=== PATIENT | female | born 1990 | race Caucasian/White ===

== ENCOUNTER 2021-08-06 11:30 | Outpatient (REF) | payer MEDICAID, SELFPAY ==
--- NOTE | 2021-08-06 10:30 | PAPFT_PTH ---
PATIENT: Bettina Ledesma LOC: [facility]#:[id number] AGE/SX: 30/F ROOM: RE08/06/[address]: Shelby Li : 1990 BED: DIS: 08/06/2021 SPEC #: [id number] RECD: 08/06/21 15:13 STATUS: AMINAH REQ #: [id number] JOHN: 08/06/21 10:[address]: Shelby Li DEPT: [facility] Cytology RECD BY: Melanie William ENTERED: 08/06/21 15:15 SP TYPE: PAPFT OTHR DR: Thea Marquez Tissues: 1 - CX/ENDOCX FOR PAP SMEARS Procedures: PAP THIN PREP/UVM Screening Comments: [id number]
== END 2021-08-06 11:31 | disposition home or self-care (01) ==
LOC: NCHCN 11:30
PROVIDERS: PCP Nurse Practitioner Family; Visit Provider Registered Nurse
DX: Z12.4 Encounter for screening for malignant neoplasm of cervix (principal)
CPT/HCPCS: 88142

== ENCOUNTER 2022-02-23 14:54 | Outpatient (REF) | payer MEDICAID, SELFPAY | END 2022-02-23 14:55 | disposition home or self-care (01) | LOC: NCHCN 14:54 | PROVIDERS: PCP Nurse Practitioner Family; Visit Provider Family Medicine | DX: N39.8 Other specified disorders of urinary system (principal) | CPT/HCPCS: 87086 ==

== ENCOUNTER 2023-10-25 10:43 | Outpatient (REF) | payer BC, SELFPAY ==
--- OUTSIDE RECORDS SUMMARY | 2023-10-25 10:45 | XMS_ITS | Encounter Summary ---
Author Organization [facility] Address [address] [place] [address] Care Team Providers Care Patrol Police Sergeant Name Role Phone Shelby Li APPLICATION SECURITY ARCHITECT Primary Care Provider + Encounter Details Date Type Department Care Team (Late st Contact Info) Description 08/09/2021 Lab Requisition [facility] Pathology & Laboratory Medicine - [facility] [address] [place] [address] Shelby Li, APPLICATION SECURITY ARCHITECT [address] [place] [address] Encounter for general adult medical examination without abnormal findings; Encounter for screening for malignant neoplasm of cervix Social History Tobacco Use Types Packs/Day Years Used Date Smoking Tobacco: Never Smokeless Tobacco: Never Alcohol Use Standard Drinks/Week Comments No 0 (1 standard drink = 0.6 oz pur e alcohol) Interpersonal Safety Answer Date Record ed Physically Hurt Never 11/03/2019 Verbally Threaten Not on file 11/03/2019 Sex and Gender Information Value Date Recorded Sex Assigned at Not on file Gender Identity Female 02/16/2021 11:19 EST Sexual Orientation Not on file documented as of this encounter Functional Status Functional Status Response Date of Assess ment Are you deaf or do you have serious difficulty h earing? No 02/04/2018 Are you blind or do you have serious difficulty seeing, even when wearing glasses? No 02/04/2018 Do you have serious difficul ty walking or climbing stairs? (5 years old or older) No 02/04/2018 Do you have difficulty dress ing or bathing? (5 years old or older) No 02/04/2018 Because of a physical, menta l, or emotional condition, does this person have difficulty doing errands alone such as visiting a doctor's office or shopping? No 05/21/2018 Cognitive Status Response Date of Assessm ent Because of a physical, menta l, or emotional condition, does this person have serious difficulty concentrating, remembering, or making decisions? No 05/21/2018 documented as of this encounter Plan of Treatment Not on file documented as of this encounter Procedures Procedure Name Priority Date/Time Associated Diagnosis Comments PAP TEST Today 08/06/2021 10:30 EDT Encounter for general adult medical examination without abnormal findings Encounter for screening for malignant neoplasm of cervix documented in this encounter Results * PAP TEST (08/06/2021 10:30 EDT) Specimens A. Cervix and/or Endocervix , ThinPrep Imaging System with Manual Evaluation 08/13/2021 13:33 [facility] Specimen Adequacy Satisfactory for Evaluation - transformation zone component present 08/13/2021 13:33 [facility] General Categorization Negative for intraepithelial lesion or malignancy 08/13/2021 13:33 [facility] Descriptive Diagnosis Reactive cellular changes associated with inflammation present (includes repair). Shift in bess present suggestive of bacterial vaginosis. 08/13/2021 13:33 [facility] Attestation By the signature below, the attending physician certifies that they have personally conducted a gross and/or microscopic examination of the described specimens and rendered or confirmed the above diagnosis. 08/13/2021 13:33 [facility] at 1333 Clinical History See below 08/14/19 13:33 [facility] Performing Lab [facility] 08/13/2021 13:33 [facility] Scanned Images 08/13/2021 13:33 [facility] Papanicolaou smear specimen (specimen) CERVIX UTERI STRUCTURE / Unknown 08/06/2021 10:30 EDT 08/09/2021 11:50 EDT Shelby Li APPLICATION SECURITY ARCHITECT PATHOLOGY [facility] [address] [place] [address] documented in this encounter Visit Diagnoses Diagnosis Encounter for general adult medical examination without abnormal findings Unspecified general medical examination Encounter for screening for malignant neoplasm of cervix Screening for malignant neoplasm of the cervix documented in this encounter Care Teams Patrol Police Sergeant Relationship Specialty Start Date End Date Shelby Li, APPLICATION SECURITY ARCHITECT [address] [place] [id number] PCP - General 02/06/18 documented as of this encounter
--- OUTSIDE RECORDS SUMMARY | 2023-10-25 10:45 | XMS_ITS | Referral Summary ---
Author Organization [facility] Address [address] [place] [address] Care Team Providers Care Exploitation Analyst Name Role Phone Shelby Li SILVIA Primary Care Provider + Allergies No known active allergies Medications Medication Sig Dispensed Refills Start Date End Date Status acetaminophen (TYLENOL ORAL) Take by mouth as needed. Active BIOTIN ORAL Take by mouth daily. Active amLODIPine (NORVASC) 2.5 mg tablet Take 1 tablet by mouth daily. Add one tab every week until taking 10mg (4 tabs). 90 tablet 3 07/04/2018 Active Additional Information Patient not taking.Reported on 09/03/2018 Active Problems Problem Noted Date Diagnosed Date Cerebral venous thrombosis 02/05/2018 Overview: Risk fx: Recent delivery with epidural/blood patch ?? 01/26/2018 - Delivery with epidural; blood patch performed 01/29/2018. ?? 02/03/2018 - P/t [facility] with headache, right jessie-body numbness, expressive language deficits. Initially thought to have SDH, MRI c/w cortical venous thrombosis. Started on hepartin gtt, symptoms resolved. Discharged on LMWH. ?? 02/04/2018 CT angio head/neck - Extra-axial serpiginous hyperdensity in LEFT frontoparietal region with lack of contrast opacification on CTA images represents a thrombosed cortical vein. No ICH or parenchymal edema. ?? 02/04/2018 MR head/MRV - Left cortical vein thrombus. No hemorrhage. Mild diffuse dural thickening and enhancement likely related to low CSF pressure given h/o post-LP headache ?? 02/04/2018 BUE and BLE dopplers - No thrombus. ?? 03/12/2018 THP - continuing LMWH while she is . LMWH level at goal. ?? 05/21/2018 THP (Yessenia) - switching to warfarin. ?? 05/21/2018 Neuro - ordered MRV. ?? 07/04/2018 MRV - Interval decrease of size of known cortical thrombosis without recanalization of cortical vein, no new thrombus identified. ?? 07/23/2018 THP (Yessenia) - completing 6 mo of AC, pending thromophilia panel, f/u in our clinic. ?? 09/03/2018 THP (Yessenia) - off AC, no ASA started. Thrombophilia panel essentially normal. Recommend no further AC or ASA at this point. Avoid estrogen-based OCP and other meds moving forward, agree with mirena IUD. Asked her to follow up with us an MFM if she opts to get again. ?? 08/18/18 Thrombophilia panel [facility] Lab: APCR - 3.2; AT3 - 107%; Cardiolipin IgG - 2.63; IgM - 5.28; Factor 8 - 150; DDimer - <0.19; PTT - 30; LA [place] - DRVVT - 39.4; DVV Mix - 37.9; DVV Control - 35.4; SCT - 38.6; LA Confirm - 28.9; LA Ratio- 1.18; Thrombin Time - 12.2; Protime - 9.8; INR 1.01; Protein C Activity - 117; Protein S Activity - 94 Social History Tobacco Use Types Packs/Day Years [...] 11:19 EST Sexual Orientation Not on file Last Filed Vital Signs Vital Sign Reading Time Taken Comments Blood Pressure 119/66 02/16/2021 1530 EST Pulse 58 02/16/2021 1018 EST Temperature 36.6 ??C (97.9 ??F) 02/16/2021 1018 EST Respiratory Rate 14 02/16/2021 1530 EST Oxygen Saturation 99% 02/16/2021 1018 EST Inhaled Oxygen Concentration - - Weight 75.4 kg (166 lb 3.2 oz) 02/16/[address] Height 160 cm (5' 3) 02/16/2021 1018 EST Body Mass Index 29.44 02/16/2021 1018 EST Functional Status Functional Status Response Date of [...] concentrating, remembering, or making decisions? No 05/21/2018 Plan of Treatment Not on file Medical Devices Implanted Type Area Creel Hand Device Identifier Shelf Expiration Date Model / Serial / Lot Mirena Iud,Mri Safe To 3t. [facility] 07/03/18 Description:Mirena IUD, MRI Safe to 3T. [facility] 07/03/18 Advance Directives For more information, please contact: [phone] * Full Code (Latest Code Status on File) Date Activated Date Inactivated Comments 02/04/2018 4:04 02/06/2018 14:39 Question Answer Comments Reason for decision includes: Full code consistent with overall plan of care Who participated in the discussion? Not Discusse d Care Teams Exploitation Analyst Relationship Specialty Start Date End Date Shelby Li, CONSERVATION SCIENTIST [address] [facility] [place] [address] PCP - General 02/06/18
--- OUTSIDE RECORDS SUMMARY | 2023-10-25 10:45 | XMS_ITS | Clinical Summary ---
Author Organization [facility] Address [address] [place] [address] Care Team Providers Care Assessment Nurse Practitioner Name Role Phone Shelby Li SILVIA Primary [...] patch performed 01/29/2018. ?? 02/03/2018 - P/t [facility] with headache, right jessie-body numbness, expressive language [...] to get again. ?? 08/18/18 Thrombophilia panel [facility] Lab: APCR - 3.2; AT3 - 107%; Cardiolipin IgG - 2.63; IgM - 5.28; Factor 8 - 150; DDimer - <0.19; PTT - 30; LA [place] - DRVVT - 39.4; DVV Mix - 37.9; DVV Control - 35.4; SCT - 38.6; LA Confirm - 28.9; LA Ratio- 1.18; Thrombin Time - 12.2; Protime - 9.8; INR 1.01; Protein C Activity - 117; Protein S Activity - 94 Surgical History Surgery Date Site/Laterality Comments TONSILLECTOMY age 11 Medical History Medical History Date Comments Cerebral venous thrombosis of cortical vein 2017 Family History Medical History Relation Comments No Known Brother No Known Daughter No Known Father Diabetes Maternal Grandfather No Known Maternal Grandmother Crohn's Disease Mother No Known Paternal Grandfather father adop amador, don't know history No Known Paternal Grandmother father adop amador, don't know history No Known Son Relation Status Comments Brother Alive Daughter Alive Father Alive Maternal Grandfather Alive Maternal Grandmother Alive Mother Alive Paternal Grandfather Paternal Grandmother Son Alive Social History Tobacco Use Types Packs/Day Years [...] 11:19 EST Sexual Orientation Not on file Obstetrics History Last Filed Vital Signs Vital Sign Reading [...] Body Mass Index 29.44 02/16/2021 1018 EST Plan of Treatment Health Maintenance Due Date Last Done Comments Hepatitis C Screen 1990 Hepatitis B Vaccine (1 of 3 - 19+ 3-dose series) 10/31 COVID-19 Vaccine ( season) 2022 Medical Devices Implanted Type Area Cut Off Man Device Identifier Shelf Expiration Date Model / Serial / Lot Mirena Iud,Mri Safe To 3t. [facility] 07/03/18 Description:Mirena IUD, MRI Safe to 3T. [facility] 07/03/18 Advance Directives For more information, please contact: [phone] * Full Code (Latest Code Status on File) Date Activated Date Inactivated Comments 02/04/2018 4:04 02/06/2018 14:39 Question Answer Comments Reason for decision includes: Full code consistent with overall plan of care Who participated in the discussion? Not Discusse d Care Teams Assessment Nurse Practitioner Relationship Specialty Start Date End Date Shelby Li APRN [address] [place] [address] PCP - General 02/06/18
--- OUTSIDE RECORDS SUMMARY | 2023-10-25 10:46 | XMS_ITS | Encounter Summary ---
Author Organization [facility] Address [address] [place] [address] Care Team Providers Care Javascript Software Engineer Name Role Phone Shelby Li SILVIA Primary Care Provider + Encounter Details Date Type Department Care Team (Latest Contact Info) Description 06/26/2018 9:20 EDT - 06/26/2018 23:59 EDT Hospital Encounter [address] [address] Unknown, Provider, Discharge Disposition: Home or Self Care Social History Tobacco Use Types Packs/Day Years Used Date Smoking Tobacco: Never Smokeless Tobacco: Never Alcohol Use Standard Drinks/Week Comments No 0 (1 standard drink = 0.6 oz pur e alcohol) Sex and Gender Information Value Date Recorded [...] No 05/21/2018 documented as of this encounter Medications at Time of Discharge Medication Sig Dispensed Refills Start Date End Date acetaminophen (TYLENOL ORAL) Take by mouth as needed. enoxaparin (LOVENOX) 80 mg/0.8 mL injection Inject 80 mg into the skin every 12 hours. 20 Syringe 05/21/2018 07/23/2018 warfarin (COUMADIN) 5 mg tablet Take 1 Tab by mouth daily. 30 Tab 3 05/24/2018 09/03/2018 documented as of this encounter Discharge Disposition Disposition Code Departure Means Destination Home or Self [place] documented in this encounter Plan of Treatment Not on file documented as of this encounter Visit Diagnoses Not on filedocumented in this encounter Care Teams Javascript Software Engineer Relationship Specialty Start Date End Date Shelby Li APRN [address] [place] [phone] PCP - General 02/06/18 documented as of this encounter
--- OUTSIDE RECORDS SUMMARY | 2023-10-25 10:46 | XMS_ITS | Encounter Summary ---
Author Organization [facility] Address [address] [place] [address] Care Team Providers Care Pipe Installer Name Role Phone Shelby Li SILVIA Primary Care Provider + Reason for Visit * Reason Onset Date Comments Appointment Related 03/09/2018 Encounter Details Date Type Department Care Team (Late st Contact Info) Description 03/09/2018 Telephone [facility] Hematology & Oncology - [address] [address] Theodore Casas MD [address] [place] [address] [address] [place] [address] Appointment Related Social History Tobacco Use Types Packs/Day Years [...] a physical, menta l, or emotional condition, do you have difficulty doing errands alone such as visiting a doctor's office or shopping? (15 years old or older) No 02/04/2018 Cognitive Status Response Date of Assessm ent Because of a physical, menta l, or emotional condition, do you have serious difficulty concentrating, remembering, or making decisions? (5 years old or older) No 02/04/2018 documented as of this encounter Miscellaneous Notes * Telephone Encounter - Erica Gayle - 03/09/2018 1616 EST 03/09 @ 4:16 called pt to remind her of appt with TP on 03/12 @ 11:00 She said she would be here. documented in this encounter Plan of Treatment Not on file documented as of this encounter Visit Diagnoses Not on filedocumented in this encounter Care Teams Pipe Installer Relationship Specialty Start Date End Date Shelby Li APRN [address] [place] [address] PCP - General 02/06/18 documented as of this encounter
--- OUTSIDE RECORDS SUMMARY | 2023-10-25 10:46 | XMS_ITS | Encounter Summary ---
Author Organization [facility] Address [address] [place] [address] Care Team Providers Care Feed Mill Operator Name Role Phone Shelby Li SILVIA Primary Care Provider + Reason for Visit * Reason Comments Follow-up Encounter Details Date Type Department Care Team (Late st Contact Info) Description 09/03/2018 16:00 EDT Office Visit [facility] Hematology & Oncology - [address] [address] Theodore Casas MD [address] [place] [address], [facility] [address] [place] [address] Cerebral venous thrombosis (Primary Dx) Social History Tobacco Use Types Packs/Day Years Used Date Smoking Tobacco: Never Smokeless Tobacco: Never Alcohol Use Standard Drinks/Week Comments No 0 (1 standard drink = 0.6 oz pur e alcohol) Sex and Gender Information Value Date Recorded Sex Assigned at Not on file Gender Identity Female 02/16/2021 11:19 EST Sexual Orientation Not on file documented as of this encounter Last Filed Vital Signs Vital Sign Reading Time Taken Comments Blood Pressure 130/68 09/03/2018 1546 EDT Pulse 66 09/03/2018 1546 EDT Temperature 36.3 ??C (97.4 ??F) 09/03/2018 1546 EDT Respiratory Rate 14 09/03/2018 1546 EDT Oxygen Saturation 98% 09/03/2018 1546 EDT Inhaled Oxygen Concentration - - Weight 83.1 kg (183 lb 1.6 oz) 09/03/2018 1546 E DT Height - - Body Mass Index 32.43 07/04/2018 1431 EDT documented in this encounter Functional Status Functional Status Response [...] No 05/21/2018 documented as of this encounter Patient Instructions * Patient Instructions* Theodore Casas MD, MD - 09/03/2018 16:00 EDT Great to see you! Plan moving forward: 1. No more estrogen-containing medications (e.g., usual control pills) 2. I like IUDs for your control moving forward 3. If you opt to get again, we'd probably put you on a blood thinner throughout the and afterwards. Let me know if you get and we'll come up with a more specific plan. Let me know if you have any questions or concerns. Let us know if you have any future scheduled non-minor surgeries. documented in this encounter Progress Notes * Theodore Casas MD, MD - 09/03/2018 1600 EDT Thrombosis & Hemostasis Program (THP) Follow Up Visit Date of Service: 09/03/2018 Problem List: Patient Active Problem List Diagnosis ??? Cerebral venous thrombosis Risk fx: Recent delivery with epidural/blood patch ?? 01/26/2018 - Delivery with epidural; blood patch performed 01/29/2018. ?? 02/03/2018 - P/t [facility] with headache, right jessie-body numbness, expressive language deficits. Initially thought to have SDH, MRI c/w cortical venous thrombosis. Started on hepartin gtt, symptoms resolved. Discharged on LMWH. ?? 02/04/2018 CT angio head/neck - Extra-axial serpiginous hyperdensity in LEFT frontoparietal region with lack of contrast opacification on CTA images represents a thrombosed cortical vein. No ICH orparenchymal edema. ?? 02/04/2018 MR head/MRV - Left [...] to get again. ?? 08/18/18 Thrombophilia panel [facility] Lab: APCR - 3.2; AT3 - 107%; Cardiolipin IgG - 2.63; IgM - 5.28; Factor 8 - 150; DDimer - <0.19; PTT - 30; LA [place] - DRVVT - 39.4; DVV Mix - 37.9; DVV Control - 35.4; SCT - 38.6; LA Confirm - 28.9; LA Ratio- 1.18; Thrombin Time - 12.2; Protime - 9.8; INR 1.01; Protein C Activity - 117; Protein S Activity - 94 CC: Chief Complaint Patient presents with ??? Follow-up HPI: Bettina Mckeon is a 27 y.o. female with a history of provoked, - and epidural-associated cerebral venous thrombosis. She stopped her warfarin but didn't start ASA. Thrombophilia panel has returned. Headaches are a little better. Of note, she has a mirena IUD in place. ROS: A complete 12-point review of systems was reviewed and was otherwise negative except as documented above and as follows: Headaches. Social History: Patient reports that she has never smoked. She has never used smokeless tobacco. She reports that she does not drink alcohol or use drugs. 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 christy Chavez Live in [place] Lives with (Mason) and 2 kids 2 fish, no other pets Medications: Current Outpatient Medications: acetaminophen (TYLENOL ORAL) amLODIPine (NORVASC) 2.5 mg tablet BIOTIN ORAL No current facility-administered medications for this visit. Allergies: Patient has No Known Allergies. Physical Exam: Vitals: 09/03/18 1546 BP: 130/68 Pulse: 66 Resp: 14 Temp: 36.3 ??C (97.4 ??F) TempSrc: Tympanic SpO2: 98% Weight: 83.1 kg (183 lb 1.6 oz) Estimated body mass index is 32.43 kg/m?? as calculated from the following: Height as of 07/04/18: 160 cm (63). Weight as of this encounter: 83.1 kg (183 lb 1.6 oz). Gen: Alert and oriented x3. No distress. Labs: See problem list overview for recent labs. Imaging: None recent. Assessment/plan: Bettina Mckeon is a 27 y.o. female with a history of cerebral venous thrombosis related to and epidural who completed 6 mo of AC. She had an unrevealing thrombophilia panel. No further specific interventions are indicated at this point, we had an extended conversation about a potential role for aspirin, though given her provoked nature of the event, I'm fine with her being off of it atthis point. Discussed avoiding estrogen products moving forward. Also recommended against Depo provera as it has been associated with thrombosis and the implanon as it's essentially analogous to depo provera. Agree with Mirena or copper IUD. Recommend she follow back with us and establish with MFM should she opt to have another . Recommend that she follow up with us prior to any future non- minor surgeries. Scar Casas MD [employer] Photo Manager Ham and Hemostasis Program Department of Hematology [facility] [email or web address] Please contact my office with questions at . cc: Shelby Li Patient Education Provided: on the various medical issues listed above Method: Verbal; therapy changes, test results, follow-up plans and/or patient instructions are documented on the after-visit summary. Taught to: Patient Barriers: None. The patient's understanding of the current medical regimen was reviewed at today's visit. The patient demonstrates adequate understanding. The patient's consistency in taking the medications as prescribed was also reviewed at today's visit. The patient reports taking the medicationsas prescribed. If medicines are not being taken as prescribed, the reasons for this change are documented above. Outcomes: verbalized understanding Today's ozju-hr-swuw visit time was 20 minutes, with greater than 50% of the time spent in counseling and/or coordination of care for the problems listed above. Portions of this document may have been prepared with speech recognition software or keyboard data processing control clerk techniques. Minor irregularities or keyboarding misprints may be present documented in this encounter Plan of Treatment Not on file documented as of this encounter Visit Diagnoses Diagnosis Cerebral venous thrombosis- Primary Cerebral thrombosis without mention of cerebral infarction documented in this encounter Discontinued Medications Medication Sig Discontinue Reason Start Date End Da te warfarin (COUMADIN) 5 mg tablet Take 1 Tab by mouth daily. Error 05/24/2018 09/03/2018 documented as of this encounter Care Teams Feed Mill Operator Relationship Specialty Start Date End Date Shelby Li APRN [address] [place] [phone] PCP - General 02/06/18 documented as of this encounter
--- OUTSIDE RECORDS SUMMARY | 2023-10-25 10:46 | XMS_ITS | Encounter Summary ---
Author Organization [facility] Address [address] [place] [address] Care Team Providers Care Kiln Setter Name Role Phone Shelby Li SILVIA Primary Care Provider + Encounter Details Date Type Department Care Team (Late st Contact Info) Description 05/21/2018 Phlebotomy Only [address] [address] Certified Medicine Aide, Outpatient Cerebral venous thrombosis (Primary Dx) Social History [...] Procedure Name Priority Date/Time Associated Diagnosis Comments PROTIME STAT 05/21/2018 11:00 EST Cerebral venous thrombosis COMPLETE BLOOD COUNT AND DIFFERENTIAL STAT 05/21/2018 11:00 EST Cerebral venous thrombosis documented in this encounter Results * COMPLETE BLOOD COUNT AND DIFFERENTIAL (05/21/2018 11:00 EST) WBC 5.58 4.0 - 12.4 K/cmm 05/21/2018 11:12 [facility] RBC 4.45 3.86 - 5.04 M/cmm 05/21/2018 11:12 [facility] Hemoglobin 13.3 11.6 - 15.2 gm/dl 05/21/2018 11:12 [facility] HCT 38.8 34.9 - 44.4 % 05/21/2018 11:12 [facility] MCV 87 81 - 98 fl 05/21/2018 11:12 [facility] MCH 29.9 26.7 - 33.3 pg 05/21/2018 11:12 [facility] MCHC 34.3 32.1 - 35.9 gm/dl 05/21/2018 11:12 [facility] RDW-CV 11.7 <14.7 % 05/21/2018 11:12 [facility] RDW-SD 37.2 <50.4 fl 05/21/2018 11:12 [facility] PLT 248 141 - 377 K/cmm 05/21/2018 11:12 [facility] MPV 9.8 9.5 - 12.7 fl 05/21/2018 11:12 [facility] Nucleated RBC's 1 /100 WBC'S 05/21/2018 11:12 [facility] % Neutrophils 45.3 % 05/21/2018 11:12 [facility] % Lymphocytes 39.1 % 05/21/2018 11:12 [facility] % Monocytes 13.4 % 05/21/2018 11:12 [facility] % Eosinophils 1.4 % 05/21/2018 11:12 [facility] % Basophils 0.4 % 05/21/2018 11:12 [facility] % Immature Grans 0.4 % 05/21/2018 11:12 [facility] ABS Neutrophils 2.53 2.20 - 8.85 K/cmm 05/21/2018 11:12 [facility] ABS Lymphs 2.18 1.09 - 3.30 K/cmm 05/21/2018 11:12 [facility] ABS Monocytes 0.75 0.1 - 0.8 K/cmm 05/21/2018 11:12 [facility] ABS Eosinophils 0.08 0.03 - 0.61 K/cmm 05/21/2018 11:12 [facility] ABS Basophils 0.02 0.01 - 0.11 K/cmm 05/21/2018 11:12 [facility] ABS Immature Grans 0.02 0 - 0.06 K/cmm 05/21/2018 11:12 [facility] Type of Diff: Automated 05/21/2018 11:12 [facility] Blood specimen (specimen) BLOOD SPECIMEN / Unknown 05/21/2018 11:00 EST 05/21/2018 11:05 EST Theodore Casas MD PACKAGES & DNA PROBE ORDERABLES [facility] [address] [place] [address] * PROTIME (05/21/2018 11:00 EST) Pro Time 12.3 10.3 - 13.4 secs 05/21/2018 11:28 [facility] I.N.R. 1.0 0.9 - 1.1 Ratio 05/21/2018 11:28 [facility] Comment: Moderate Intensity Coumadin INR = 2.0-3.0 Adjustments in anticoagulant therapy dose should be based upon the INR and NOT the Pro Time. Blood specimen (specimen) BLOOD SPECIMEN / Unknown 05/21/2018 11:00 EST 05/21/2018 11:05 EST Theodore Casas MD HEMATOLOGY & PF4 ORD ERABLES [facility] [address] [place] [address] documented in this encounter Visit Diagnoses Diagnosis Cerebral venous thrombosis- Primary Cerebral thrombosis without mention of cerebral infarction documented in this encounter Care Teams Kiln Setter Relationship Specialty Start Date End Date Shelby Li, HEAT TRANSFER TECHNICIAN [address] [place] [phone] PCP - General 02/06/18 documented as of this encounter
--- OUTSIDE RECORDS SUMMARY | 2023-10-25 10:46 | XMS_ITS | Encounter Summary ---
Author Organization [facility] Address [address] [place] [address] Care Team Providers Care Client Support Professional Name Role Phone Shelby Li SILVIA Primary Care Provider + Reason for Visit * Reason Onset Date Comments Medications Refill 05/21/2018 Encounter Details Date Type Department Care Team (Late st Contact Info) Description 05/21/2018 Refill [facility] Cancer Center Hematology & Oncology - [facility] [address] [place] [address] Shira Lombardi, RN [address] [place] [address] Medications Refill Social History Tobacco Use Types Packs/Day Years [...] No 05/21/2018 documented as of this encounter Ordered Prescriptions Prescription Sig Dispensed Refills Start Date End Da te enoxaparin (LOVENOX) 80 mg/0.8 mL injection Inject 80 mg into the skin every 12 hours. 20 Syringe 05/21/2018 07/23/2018 documented in this encounter Plan of Treatment Not on file documented as of this encounter Visit Diagnoses Not on filedocumented in this encounter Discontinued Medications Medication Sig Discontinue Reason Start Date End Da te enoxaparin (LOVENOX) 80 mg/0.8 mL injection Inject 80 mg into the skin every 12 hours. 04/25/2018 05/21/2018 documented as of this encounter Care Teams Client Support Professional Relationship Specialty Start Date End Date Shelby Li APRN [address] [place] [phone] PCP - General 02/06/18 documented as of this encounter
--- OUTSIDE RECORDS SUMMARY | 2023-10-25 10:46 | XMS_ITS | Encounter Summary ---
Author Organization [facility] Address [address] [place] [address] Care Team Providers Care Roller Mechanic Name Role Phone Shelby Li SILVIA Primary Care Provider + Encounter Details Date Type Department Care Team (Late st Contact Info) Description 06/15/2018 Anti-coag visit [facility] Cancer Center Hematology & Oncology - [facility] [address] [place] [address] Shira Lombardi, RN [address] [place] [address] Social History Tobacco Use Types Packs/Day Years [...] No 05/21/2018 documented as of this encounter Progress Notes * Shira Lombardi, RN - 06/15/2018 1543 EDT Pt instructed to increase warfarin to 5mg every day except Thur, 2.5mg . INR in one week documented in this encounter Plan of Treatment Not on file documented as of this encounter Procedures Procedure Name Priority Date/Time Associated Diagnosis Comments PROTIME Routine 06/15/2018 documented in this encounter Results * PROTIME (06/15/2018) INR, External 1.59 [facility] Blood specimen (specimen) 06/15/2018 Historical Provider HEMATOLOGY & PF4 ORDERABLES [facility] documented in this encounter Visit Diagnoses Not on filedocumented in this encounter Care Teams Roller Mechanic Relationship Specialty Start Date End Date Shelby Li APRN [address] [place] [phone] PCP - General 02/06/18 documented as of this encounter
--- OUTSIDE RECORDS SUMMARY | 2023-10-25 10:46 | XMS_ITS | Encounter Summary ---
Author Organization [facility] Address [address] [place] [address] Care Team Providers Care Clinical Trials Specialist Name Role Phone Shelby Li SILVIA Primary Care Provider + Encounter Details Date Type Department Care Team (Late st Contact Info) Description 07/03/2018 Orders Only [facility] Adult Neurology - [facility] [address] [place], [place] [id number] Julia Montejo, ROOFER ASSISTANT [address] [facility] Level [address] [place] [address] Social History Tobacco Use Types Packs/Day Years [...] Dispensed Refills Start Date End Da te LORazepam (ATIVAN) 1 mg tablet Take 1 tablet by mouth once for 1 dose. Daily Max: 1 mg 1 tablet 07/03/2018 07/23/2018 documented in this encounter Progress Notes * Julia Montejo APRN - 07/03/2018 1430 EDT Bettina Mckeon is scheduled for an MR venogram of the head tomorrow and wanted some sedation due to feeling claustrophobic in MRI. Wrote for Lorazepam 1mg pill and escripted to [facility] in [place], [place]. Contacted patient to inform her of the prescription fill. Julia Montejo APRN documented in this encounter Plan of Treatment Not on file documented as of this encounter Visit Diagnoses Not on filedocumented in this encounter Care Teams Clinical Trials Specialist Relationship Specialty Start Date End Date Shelby Li APRN [address] [place] [phone] PCP - General 02/06/18 documented as of this encounter
--- OUTSIDE RECORDS SUMMARY | 2023-10-25 10:46 | XMS_ITS | Encounter Summary ---
Author Organization [facility] Address [address] [place] [address] Care Team Providers Care Mastic Man Name Role Phone Shelby Li SILVIA Primary Care Provider + Encounter Details Date Type Department Care Team (Late st Contact Info) Description 06/22/2018 Anti-coag visit [facility] Cancer Center Hematology & Oncology - [facility] [address] [place] [address] Dominique Fajardo, RN [address] [place] [address] Social History Tobacco Use Types Packs/Day Years [...] Priority Date/Time Associated Diagnosis Comments PROTIME Routine 06/21/2018 documented in this encounter Results * PROTIME (06/21/2018) INR, External 1.64 [facility] Blood specimen (specimen) 06/21/2018 Historical Provider HEMATOLOGY & PF4 ORDERABLES [facility] documented in this encounter Visit Diagnoses Not on filedocumented in this encounter Care Teams Mastic Man Relationship Specialty Start Date End Date Shelby Li APRN [address] [place] [phone] PCP - General 02/06/18 documented as of this encounter
--- OUTSIDE RECORDS SUMMARY | 2023-10-25 10:46 | XMS_ITS | Encounter Summary ---
Author Organization [facility] Address [address] [place] [address] Care Team Providers Care Collection Systems Modeler Name Role Phone Shelby Li SILVIA Primary Care Provider + Encounter Details Date Type Department Care Team (Late st Contact Info) Description 05/24/2018 Anti-coag visit [facility] Cancer Center Hematology & Oncology - [facility] [address] [place] [address] Shira Lombardi, RN [address] [place] [address] Social History Tobacco Use Types Packs/Day Years [...] Progress Notes * Shira Lombardi, RN - 05/24/2018 1701 EST Pt to remain on Lovenox,take 7.5mg warfarin x1, 5mg all other days INR Monday documented in this encounter Plan of Treatment Not on file documented as of this encounter Procedures Procedure Name Priority Date/Time Associated Diagnosis Comments PROTIME Routine 05/24/2018 documented in this encounter Results * PROTIME (05/24/2018) INR, External 1.58 [facility] Blood specimen (specimen) 05/24/2018 Historical Provider HEMATOLOGY & PF4 ORDERABLES [facility] documented in this encounter Visit Diagnoses Not on filedocumented in this encounter Care Teams Collection Systems Modeler Relationship Specialty Start Date End Date Shelby Li APRN [address] [place] [phone] PCP - General 02/06/18 documented as of this encounter
--- OUTSIDE RECORDS SUMMARY | 2023-10-25 10:46 | XMS_ITS | Encounter Summary ---
Author Organization [facility] Address [address] [place] [address] Care Team Providers Care Job Developer For Deaf Adults Name Role Phone Shelby Li SILVIA Primary Care Provider + Encounter Details Date Type Department Care Team (Late st Contact Info) Description 05/24/2018 Orders Only [facility] Cancer Center Hematology & Oncology - [facility] [address] [place] [address] Shira Lombardi, RN [address] [place] [address] Social History Tobacco Use Types Packs/Day Years [...] Dispensed Refills Start Date End Da te warfarin (COUMADIN) 5 mg tablet Take 1 Tab by mouth daily. 30 Tab 3 05/24/2018 09/03/2018 documented in this encounter Plan of Treatment Not on file documented as of this encounter Visit Diagnoses Not on filedocumented in this encounter Care Teams Job Developer For Deaf Adults Relationship Specialty Start Date End Date Shelby Li, CANE BURNER [address] [place] [phone] PCP - General 02/06/18 documented as of this encounter
--- OUTSIDE RECORDS SUMMARY | 2023-10-25 10:46 | XMS_ITS | Encounter Summary ---
Author Organization [facility] Address [address] [place] [address] Care Team Providers Care Radio Repair Teacher Name Role Phone Shelby Li SILVIA Primary Care Provider + Encounter Details Date Type Department Care Team (Late st Contact Info) Description 06/07/2018 Anti-coag visit [facility] Cancer Center Hematology & Oncology - [facility] [address] [place] [address] Shira Lombardi, RN [address] [place] [address] Social History Tobacco Use Types Packs/Day Years [...] Progress Notes * Shira Lombardi, RN - 06/07/2018 1607 EST Pt to decrease warfarin to 2.5mg Sun and Consuelo, 5mg all other days INR in 1 week documented in this encounter Plan of Treatment Not on file documented as of this encounter Procedures Procedure Name Priority Date/Time Associated Diagnosis Comments PROTIME Routine 06/07/2018 documented in this encounter Results * PROTIME (06/07/2018) INR, External 3.84 [facility] Blood specimen (specimen) 06/07/2018 Historical Provider HEMATOLOGY & PF4 ORDERABLES [facility] documented in this encounter Visit Diagnoses Not on filedocumented in this encounter Care Teams Radio Repair Teacher Relationship Specialty Start Date End Date Shelby Li APRN [address] [place] [phone] PCP - General 02/06/18 documented as of this encounter
--- OUTSIDE RECORDS SUMMARY | 2023-10-25 10:46 | XMS_ITS | Encounter Summary ---
Author Organization [facility] Address [address] [place] [address] Care Team Providers Care Dumping Machine Operator Name Role Phone Shelby Li SILVIA Primary Care Provider + Reason for Referral * Consult (Routine) - Closed Specialty Diagnoses / Procedures Referred By Jack salcido Referred To Contact Diagnoses Cerebral venous thrombosis Theodore Casas MD [address] [place] [address], [facility] [address] [place] [address] Referral ID Status Reason Start Date Expiration Date V isits Requested Visits Authorized [id number] Closed Specialty Services Required 04/25/2018 1 1 Question Answer Housing No Insurance / Financial Yes Copay Assistance Yes Disability No Transportation No Work / School No Advanced directives No Practical Problem No Family problems No Emotional distress No Physical problems No Comments Pt losing medicaid, 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 Want to be sure she is covered for the duration of her treatment Encounter Details Date Type Department Care Team (Late st Contact Info) Description 04/25/2018 Orders Only [facility] Cancer Center Hematology & Oncology - [address] [address] Shira Lombardi RN [address] [place] [address] Cerebral venous thrombosis (Primary Dx) Social History [...] No 02/04/2018 documented as of this encounter Plan of Treatment Scheduled Referrals Name Type Priority Associated Diagnoses Orde r Schedule [facility] Outpatient Referral Routine Cerebral venous thrombosis Ordered: 04/25/2018 documented as of this encounter Visit Diagnoses Diagnosis Cerebral venous thrombosis- Primary Cerebral thrombosis without mention of cerebral infarction documented in this encounter Care Teams Dumping Machine Operator Relationship Specialty Start Date End Date Shelby Li APRN [address] [place] [phone] PCP - General 02/06/18 documented as of this encounter
--- OUTSIDE RECORDS SUMMARY | 2023-10-25 10:46 | XMS_ITS | Encounter Summary ---
Author Organization [facility] Address [address] [place] [address] Care Team Providers Care Engraver Pantograph Name Role Phone Shelby Li SILVIA Primary Care Provider + Encounter Details Date Type Department Care Team (Latest Contact Info) Description 07/04/2018 6:29 EDT - 07/04/2018 23:59 EDT Hospital Encounter [facility] [address] [place] [address] Julia Montejo, RAMON [address] [place] [address] [address] [place] [address] Discharge Disposition: Auto Discharge Social History Tobacco Use Types Packs/Day Years [...] No 05/21/2018 documented as of this encounter Discharge Diagnoses Diagnosis 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 amLODIPine (NORVASC) 2.5 mg tablet Take 1 tablet by mouth daily. Add one tab every week until taking 10mg (4 tabs). 90 tablet 3 07/04/2018 BIOTIN ORAL Take by mouth daily. enoxaparin (LOVENOX) 80 mg/0.8 mL injection Inject 80 mg into the skin every 12 hours. 20 Syringe 05/21/2018 07/23/2018 LORazepam (ATIVAN) 1 mg tablet Take 1 tablet by mouth once for 1 dose. Daily Max: 1 mg 1 tablet 07/03/2018 07/23/2018 warfarin (COUMADIN) 5 mg tablet Take 1 Tab by mouth daily. 30 Tab 3 05/24/2018 09/03/2018 documented as of this encounter Discharge Disposition Disposition Code Departure Means Destination Auto Discharge Home documented in this encounter Plan of Treatment Not on file documented as of this encounter Visit Diagnoses Not on filedocumented in this encounter Care Teams Engraver Pantograph Relationship Specialty Start Date End Date Shelby Li APRN [address] [place] [phone] PCP - General 02/06/18 documented as of this encounter
--- OUTSIDE RECORDS SUMMARY | 2023-10-25 10:46 | XMS_ITS | Encounter Summary ---
Author Organization [facility] Address [address] [place] [address] Care Team Providers Care Machine Setter Sheet Metal Name Role Phone Shelby Li SILVIA Primary Care Provider + Reason for Visit * Reason Comments New Patient Visit * Consult (Routine) - Closed Specialty Diagnoses / Procedures Referred By Jack salcido Referred To Contact Hematology Diagnoses Cerebral venous thrombosis during puerperium, Daniel Liriano MD [address] [facility] [place] [address] Referral ID Status Reason Start Date Expiration Date V isits Requested Visits Authorized [id number] Closed Specialty Services Required 02/05/2018 1 1 Encounter Details Date Type Department Care Team (Late st Contact Info) Description 03/12/2018 11:00 EST Office Visit [facility] Hematology & Oncology - [address] [phone] Theodore Casas MD [address] [facility], [address] [place] [phone] Cerebral venous thrombosis (Primary Dx) Discharge Disposition: Auto Discharge Social History Tobacco [...] Sign Reading Time Taken Comments Blood Pressure 110/57 03/12/2018 1110 EST Pulse 57 03/12/2018 1110 EST Temperature 36.7 ??C (98 ??F) 03/12/2018 1110 EST Respiratory Rate 16 03/12/2018 1110 EST Oxygen Saturation 98% 03/12/2018 1110 EST Inhaled Oxygen Concentration - - Weight 82.3 kg (181 lb 6.4 oz) 03/12/[address] Height - - Body Mass Index 32.13 02/04/2018 0741 EST documented in this encounter Functional Status Functional [...] No 02/04/2018 documented as of this encounter Discharge Diagnoses Diagnosis G08 Intracranial and intraspinal phlebitis and thrombophlebitis-G08[ICD-10-CM] documented in this encounter Patient Instructions * Patient Instructions* Theodore Casas MD - 03/12/2018 11:00 EST Welcome to the [facility] Thrombosis and Hemostasis Program Clinic! ? We are dedicated to providing the highest quality care ? We are committed to being a partner with you in your health care decisions ? We will do our best to teach you about your condition so that you can help us take the best care of you ? You can find more information about our programs and research, and links to educational materialson our website: [email or web address] If you have concerns or questions please write us at the clinic or email us (link is on the website). Our phone number is [phone] Download and log into the [employer] viv to access your [employer] stuff Keep taking your enoxaparin shots, let me know if you have any issues with bleeding or bruising. Go to the lab now documented in this encounter Discharge Disposition Disposition Code Departure Means Destination Auto Discharge documented in this encounter Progress Notes * Theodore Casas MD - 03/12/2018 1100 EST Thrombosis & Hemostasis Program (THP) Consult H&P Date of Service: 03/12/2018 PCP: Shelby Li Referring MD: Shelby Li Chief Complaint Patient presents with ??? New Patient Visit HPI: Bettina Mckeon is a 27 y.o. female with no significant past medical history who had an uncomplicated 4 years ago. She recently delivered her second child on January 26, 2018. It was an uncomplicated . She did not experience any issues with blood pressure or preeclampsia, bleeding, or any other complications. She received an epidural around the time of the procedure that was complicated by LP leak requiring a blood patch to be performed on 01/29/2018. At that point she had positional headache that improved while she laid flat. Her headache did not improve over the coming week and she presented to [facility] with headache that was associated with right hemibody numbnes s, expressive language deficits, and difficulty seeing. She was initially thought to have a subdural hematoma on outside hospital head CT without contrast so she was transferred to [facility]. Here, she had a CT angios and MR head and MRV that demonstrated left cortical vein thrombus. She was then started on anticoagulation that dramatically improved her symptoms. Her headache improved from an 8-9 out of 10 to a 3 out of 10. Her other neurological deficits improved dramatically as well. Headache when from an 8-9 to about a 3. It's at the top of her head and achy. It goes down a bit when she lays flat. She took her LMWH dose at 8AM today. ROS: (Intake form with complete ROS reviewed and scanned into PRISM) 10 point review of symptoms was otherwise negative with details below. Pertinent positives: as above Pertinent negatives: No bleeding or bruising Past Medical History: Patient has no past medical history on file. Past Surgical History: Patient has a past surgical history that includes Tonsillectomy (age 11). Family History: Patient's Family History Problem Relation Age of Onset ??? Crohn's Disease Mother ??? No Known Father ??? No Known Maternal Grandmother ??? Diabetes Maternal Grandfather ??? No Known Paternal Grandmother father adopted, don't know history ??? No Known Paternal Grandfather father adopted, don't know history ??? No Known Brother ??? No Known Son ??? No Known Daughter Social History: Patient reports that has never smoked. she has never used smokeless tobacco. She reports that she does not drink alcohol or use drugs. 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 christy Chavez Live in [place] Lives with (Mason) and 2 kids 2 fish, no other pets Medications: Current Outpatient Medications: acetaminophen (TYLENOL ORAL) enoxaparin (LOVENOX) 80 mg/0.8 mL injection No current facility-administered medications for this visit. Allergies: Patient has No Known Allergies. Physical Exam: Vitals: 03/12/18 1110 BP: 110/57 Pulse: 57 Resp: 16 Temp: 36.7 ??C (98 ??F) TempSrc: Tympanic SpO2: 98% Weight: 82.3 kg (181 lb 6.4 oz) Estimated body mass index is 32.13 kg/m?? as calculated from the following: Height as of 02/04/18: 160 cm (63). Weight as of this encounter: 82.3 kg (181 lb 6.4 oz). Gen: Well developed, well nourished ; No acute distress, alert and oriented times three; conversingappropriately Head/Eyes/Neck/Throat: Atraumatic; Extra ocular movements intact, Pupils equally round and reactiveto light, no scleral icterus; Oropharynx benign; Neck supple with full range of motion, trachea midline, no thyromegaly Lymph: No lymphadenopathy of cervical, clavicular, axillary region Pulm: Clear to auscultation, No wheeze, good air movement throughout CV: Regular rate and rhythm, no murmurs, no carotid bruits Abd: Soft, non-tender, non-distended, no organomegaly, positive active bowel sounds, No rebound/guarding : Deferred MSK: Equal strength throughout, patient witnessed ambulating well in hallway Neuro: No focal deficits, Moving all extremities. Cranial nerves II through XII intact. Symmetricalreflexes. Skin: No rashes. Scant injection site bruising. Legs: Right: No edema, cords, hemosiderin deposits, varicose veins, erythema or tenderness. Good distal pulses. Left: No edema, cords, hemosiderin deposits, varicose veins, erythema or tenderness. Good distal pulses. Labs: Complete Blood Count Lab Results Component Value Date WBC 8.23 03/12/2018 WBC 8.77 02/05/2018 RBC 4.46 03/12/2018 HGB 13.3 03/12/2018 HGB 12.6 02/05/2018 HCT 39.0 03/12/2018 MCV 87 03/12/2018 PLT 244 03/12/2018 PLT 251 02/05/2018 MPV 10.2 03/12/2018 RDWCV 13.1 03/12/2018 Lab Results Component Value Date DIFFTYPE Automated 03/12/2018 NEUTROABS 4.21 03/12/2018 LYMPHSABS 3.15 03/12/2018 MONOSABS 0.64 03/12/2018 EOSABS 0.18 03/12/2018 BASOSABS 0.03 03/12/2018 Chemistries Lab Results Component Value Date NA 140 03/12/2018 K 4.3 03/12/2018 CL 105 03/12/2018 CO2 24 03/12/2018 BUN 16 03/12/2018 CREATININE 0.68 03/12/2018 CALCGFR 121 03/12/2018 CALCIUM 9.1 03/12/2018 CALCCA 8.8 03/12/2018 Cardiovascular No results found for: SCRP No results found for: CHOL, LDLDIRECT, LDLCALC, CHOLHDL, HDL, HDLC, LPA, LIPOA, TRIG No results found for: BNP, SCRP, HSCRP, HOMOCYS, HOMOCYSTEINE, TROPONINI, POCTROP Thrombosis Panel Lab Results Component Value Date PROTIME 11.4 02/04/2018 INR 1.0 02/04/2018 PTT 26 02/04/2018 Imaging: MR HEAD W/WO CONTRAST, MR ANGIO HEAD VENOGRAM W/WO CONTRAST ?? 02/04/2018 1:18 PM ?? Signs And Symptoms/Comments: c/f cortical venous thrombosis ?? Comparison: CT head without contrast 7 hours prior. ?? Technique: MRI of the head with and without IV contrast. MRV of the head with IV contrast. ?? Findings: ?? MRI head: There is an area of susceptibility in a serpiginous pattern consistent with known thrombosed cortical vein in the left frontoparietal region. ?? Otherwise the brain parenchyma demonstrates normal signal intensity. There is no acute hemorrhage or hydrocephalus. ?? Mild diffuse dural thickening and enhancement likely related to low CSF pressure given history of post LP-type headaches. ?? The paranasal sinuses and mastoid air cells are predominantly clear. Bone marrow signal is normal. ?? On contrast administration there is no abnormal brain parenchymal or leptomeningeal enhancement. ?? MRV head: The left frontoparietal cortical vein thrombosis is well seen on the MRV images. No evidence of dural venous sinus or deep cerebral vein thrombosis. ?? Impression: 1. ??Redemonstration of a cortical vein thrombosis on the left. No evidence of dural venous sinus or deep cerebral vein thrombosis. ?? 2. ??No evidence of ischemia or intracranial hemorrhage. ?? 3. ??Mild diffuse dural thickening and enhancement likely related to low CSF pressure given history of post LP-type headaches. I have personally reviewed the images and the above interpretation and agree with the findings. CT ANGIO HEAD AND NECK W CONTRAST ??02/04/2018 5:16 AM ?? SIGNS AND SYMPTOMS/COMMENTS: ?? Possible vascular anomaly seen on head CT ?? TECHNIQUE: Noncontrast CT of the head. CTA of the head and neck after IV contrast. 3-D reconstructions of the CTA head and neck were performed and reviewed. ?? COMPARISON: Outside head CT under accession number [id number] ?? FINDINGS: ?? Head CT: Near the vertex, on the left, there is a hyperdense vascular structure which likely reflect a thrombosed cortical vein (image 94, series 201). ?? No subdural hematoma is present. No subarachnoid, epidural, or intraparenchymal hemorrhage. Ventricular caliber is within normal limits. No large territorial infarct. ?? Unremarkable osseous structures and extracranial soft tissues. ?? CTA Head: The previously noted serpiginous hyperdensity overlying the left frontoparietal cortex does not opacify, and confirms the diagnosis of cortical vein thrombosis. ?? The aortic arch, major arch branches, common carotid arteries, internal carotid arteries, and vertebral arteries are patent with no evidence of stenosis, occlusion, or dissection. ?? Major intracranial arteries are patent with no evidence of stenosis, occlusion, aneurysm, or vascular malformation. ?? Additional findings: There is a calcified left upper lobe granuloma. ??In the right upper lobe, there is mucus plugging and mild bronchiectasis. ?? IMPRESSION: 1. Extra-axial serpiginous hyperdensity in the left frontoparietal region with lack of contrast opacification on the CTA images represents a thrombosed cortical vein. ?? 2. No intracranial hemorrhage or evidence of parenchymal edema. ?? 3. No arterial abnormality in the head or neck. ?? Dr. Buzz Reynaga reviewed these findings with FERNIE NEWELL MD on 02/04/2018 5:40 AM. I have personally reviewed the images and the above interpretation and agree with the findings. Results for orders placed during the hospital encounter of 02/04/18 RAD US DOPPLER LOWER EXTREMITY VENOUS BILATERAL Narrative RAD US DOPPLER LOWER EXTREMITY VENOUS BILATERAL 02/04/2018 6:17 PM Signs And Symptoms/Comments: Stroke Comparison: No relevant prior studies Technique: Grayscale, Doppler and duplex ultrasound of the lower extremities. Findings: There is no evidence of intraluminal thrombus in the internal iliac, common femoral, proximal greater saphenous, profunda, all portions of the femoral, popliteal, posterior tibial and peroneal veins of the lower extremities. Impression: No evidence of DVT in the lower extremities. I have personally reviewed the images and the above interpretation and agree with the findings. Patient Active Problem List Diagnosis Date Noted ??? Cerebral venous thrombosis 02/05/2018 Risk fx: Recent delivery with epidural/blood patch ?? 01/26/2018 - Delivery with epidural; blood patch performed 01/29/2018. ?? 02/03/2018 - P/t [facility] with headache, right jessie-body numbness, [...] she is . LMWH level at goal. F/u plans: duration? 6-12 mo of ac? Repeat imaging of the brain? Extended AC? Discuss long-term contraception recommendations. Assessment/plan: Bettina Mckeon is a 27 y.o. female with no significant past medical history with a recent deliveryof her second child that was complicated by LP-related leak requiring blood patch from epidural andsubsequent diagnosis of left cortical vein thrombus in the brain. She is on low molecular weight heparin therapy. She continues to breast-feed. Sinus venous thrombosis is a relatively rare entity. It is thought to be related to conventional risk factors for venous thrombosis. Been in the post state is high risk for thrombosis. Contributing factors may also include the epidural and blood patch, though there only been a handful of case reports describing an association between blood patch, epidurals, and venous thrombosis in the brain. Regardless of the cause, the patient requires anticoagulation. Given her breast-feeding status, I do not want to treat her with anything but low molecular weight heparin or some other equivalent injectable. At this point, I will plan on continuing her on at least 6 months of anticoagulation though I may opt to treat for longer. We discussed the risks and benefits of anticoagulation, the main risk being bleeding. She is tolerating the therapy very well and has improved in her symptomatology. Hopefully she will continue to derive benefit with ongoing anticoagulation. At her next visit, we will assess her symptoms, decide on repeat imaging, and try to determine duration of therapy. Scar Casas MD [facility] Criminal Psychologist Thombosis and Hemostasis Program Department of Hematology [facility] [email or web address] Please contact my office with questions at . cc: Shelby Li Patient Education Provided: on the various medical issues listed above Method: Verbal; therapy changes, test results, follow-up plans and/or patient instructions are documented on the after-visit summary. Taught to: Patient, Barriers: None. The patient's understanding of the current medical regimen was reviewed at today's visit. The patient demonstrates adequate understanding. The patient's consistency in taking the medications as prescribed was also reviewed at today's visit. The patient reports taking the medicationsas prescribed. If medicines are not being taken as prescribed, the reasons for this change are documented above. Outcomes: verbalized understanding Today's xtde-ck-acne visit time was 60 minutes with 35 minutes spent in counseling and/or coordination of care for the problems listed above. Portions of this document may have been prepared with speech recognition software or keyboard data architect techniques. Minor irregularities or keyboarding misprints may be present documented in this encounter Plan of Treatment Not on file documented as of this encounter Results * BASIC METABOLIC PANEL (BMP) (03/12/2018 12:39 EST) Sodium 140 136 - 145 mEq/L 03/12/2018 13:42 [facility] Potassium 4.3 3.5 - 5.0 mEq/L 03/12/2018 13:42 [facility] Chloride 105 96 - 110 mEq/L 03/12/2018 13:42 [facility] CO2 24 22 - 32 mEq/L 03/12/2018 13:42 [facility] BUN 16 10 - 26 mg/dl 03/12/2018 13:42 [facility] Creatinine 0.68 0.52 - 1.04 mg/dl 03/12/2018 13:42 [facility] GFR, Calculated 121 >60 ml/min/1.7 3m2 03/12/2018 13:42 [facility] Comment: eGFR calculated using CKD-EPI equation for non Americans. Multiply eGFR by 1.16 for Americans. Calcium 9.1 8.5 - 10.5 mg/dl 03/12/2018 13:42 [facility] Calculated Calcium 8.8 8.5 - 10.5 mg/dl 03/12/2018 13:42 [facility] Glucose, Serum 95 70 - 100 mg/dl 03/12/2018 13:42 [facility] Fasting? No 03/12/2018 12:39 [facility] Blood specimen (specimen) BLOOD SPECIMEN / Unknown 03/12/2018 12:39 EST 03/12/2018 12:58 EST Theodore Casas MD CHEMISTRY & BLOOD GA S ORDERABLES [facility] [address] [place] [address] * COMPLETE BLOOD COUNT AND DIFFERENTIAL (03/12/2018 12:39 EST) WBC 8.23 4.0 - 12.4 K/cmm 03/12/2018 13:17 [facility] RBC 4.46 3.86 - 5.04 M/cmm 03/12/2018 13:17 [facility] Hemoglobin 13.3 11.6 - 15.2 gm/dl 03/12/2018 13:17 [facility] HCT 39.0 34.9 - 44.4 % 03/12/2018 13:17 [facility] MCV 87 81 - 98 fl 03/12/2018 13:17 [facility] MCH 29.8 26.7 - 33.3 pg 03/12/2018 13:17 [facility] MCHC 34.1 32.1 - 35.9 gm/dl 03/12/2018 13:17 [facility] RDW-CV 13.1 <14.7 % 03/12/2018 13:17 [facility] RDW-SD 42.2 <50.4 fl 03/12/2018 13:17 [facility] PLT 244 141 - 377 K/cmm 03/12/2018 13:17 [facility] MPV 10.2 9.5 - 12.7 fl 03/12/2018 13:17 [facility] % Neutrophils 51.1 % 03/12/2018 13:17 [facility] % Lymphocytes 38.3 % 03/12/2018 13:17 [facility] % Monocytes 7.8 % 03/12/2018 13:17 [facility] % Eosinophils 2.2 % 03/12/2018 13:17 [facility] % Basophils 0.4 % 03/12/2018 13:17 [facility] % Immature Grans 0.2 % 03/12/2018 13:17 [facility] ABS Neutrophils 4.21 2.20 - 8.85 K/cmm 03/12/2018 13:17 [facility] ABS Lymphs 3.15 1.09 - 3.30 K/cmm 03/12/2018 13:17 [facility] ABS Monocytes 0.64 0.1 - 0.8 K/cmm 03/12/2018 13:17 [facility] ABS Eosinophils 0.18 0.03 - 0.61 K/cmm 03/12/2018 13:17 [facility] ABS Basophils 0.03 0.01 - 0.11 K/cmm 03/12/2018 13:17 [facility] ABS Immature Grans 0.02 0 - 0.06 K/cmm 03/12/2018 13:17 [facility] Type of Diff: Automated 03/12/2018 13:17 [facility] Blood specimen (specimen) BLOOD SPECIMEN / Unknown 03/12/2018 12:39 EST 03/12/2018 12:58 EST Theodore Casas MD PACKAGES & DNA PROBE ORDERABLES [facility] [address] [place] [address] * HEPARIN LEVEL - LOW MOLECULAR WEIGHT HEPARIN (03/12/2018 12:39 EST) Heparin Level - LMWH 0.92 IU/mL 03/03 14:03 [facility] Comment: THERAPEUTIC HEPARIN RANGE (for twice-a-day dosing, peak sample drawn 4 hours post subcutaneous injection) for treatment of venous thromboembolism: ? Adults and children: ? 0.5 - 1.1 IU/mL ? Melber: ? 0.5 - 1.0 IU/mL THERAPEUTIC HEPARIN RANGE (for once-a-day dosing, peak sample drawn 4 hours post subcutaneous injection) for treatment of venous thromboembolism: ?1.0 - 2.0 IU/mL Results may not be reliable for direct thrombin inhibitors or pentasaccharides such as fondaparinux. Exogenous ATIII is NOT supplied in this assay. For unexpected or persistently low levels, consider measuring patient's ATIII level. Blood specimen (specimen) BLOOD SPECIMEN / Unknown 03/12/2018 12:39 EST 03/12/2018 12:58 EST Theodore Casas MD HEMATOLOGY & PF4 ORD ERABLES [facility] Organization Address City/State/[facility] Co de Phone Number [facility] [address] [place] [address] documented in this encounter Visit Diagnoses Diagnosis Cerebral venous thrombosis- Primary Cerebral thrombosis without mention of cerebral infarction documented in this encounter Historical Medications * This list may reflect changes made after this encounter. Medication Sig Dispensed Refills Start Date End Date acetaminophen (TYLENOL ORAL) Take by mouth as needed. added in this encounter Care Teams Machine Setter Sheet Metal Relationship Specialty Start Date End Date Shelby Li, POWDER BLENDER AND POURER [address] [place] [phone] PCP - General 02/06/18 documented as of this encounter
--- OUTSIDE RECORDS SUMMARY | 2023-10-25 10:46 | XMS_ITS | Encounter Summary ---
Author Organization [facility] Address [address] [place] [address] Care Team Providers Care Bar Supervisor Name Role Phone Shelby Li SILVIA Primary Care Provider + Reason for Visit * Reason Onset Date Comments Medication Questions 04/25/2018 Lovenox Encounter Details Date Type Department Care Team (Late st Contact Info) Description 04/25/2018 Telephone [facility] Hematology & Oncology - [address] [phone] Theodore Casas MD [address] [place] [address], [facility] [address] [place] [address] Medication Questions (Lovenox) Social History Tobacco Use Types Packs/Day Years [...] encounter Miscellaneous Notes * Telephone Encounter - Miley Carranza V. - 04/25/2018 1210 EST Patient loosing her Medicaid at the end of this month and asking if she can get a two month script for Lovenox. Please call to discuss documented in this encounter Plan of Treatment Not on file documented as of this encounter Visit Diagnoses Not on filedocumented in this encounter Care Teams Bar Supervisor Relationship Specialty Start Date End Date Shelby Li, NURSE TECHNICIAN [address] [place] [phone] PCP - General 02/06/18 documented as of this encounter
--- OUTSIDE RECORDS SUMMARY | 2023-10-25 10:46 | XMS_ITS | Encounter Summary ---
Author Organization [facility] Address [address] [place] [address] Care Team Providers Care Preparation Department Supervisor Name Role Phone Shelby Li SILVIA Primary Care Provider + Reason for Visit * Reason Onset Date Comments Other 07/15/2020 Encounter Details Date Type Department Care Team (Late st Contact Info) Description 07/15/2020 Telephone [facility] Adult Neurology - [facility] [address] [place] [address] Reinier Velez MD [address] [place] [phone] Other Social History Tobacco Use Types Packs/Day Years [...] No 05/21/2018 documented as of this encounter Miscellaneous Notes * Telephone Encounter - Dunia De Leon RN - 07/15/[address] Velez: I don't believe a link has been found between the [employer] or pfizer vaccines and clotting. There were six cases of venous sinus thrombosis reported in the in the Victor M and Victor M vaccine out of 7 million which have been administered. This vaccine is now on hold while the link isbeing investigated in this county. The risk of clotting is much higher with COVID itself than the vaccine and as such I would still recommend getting the vaccinations. Call to patient. Relayed the above. Pt verbalized understanding and has no further questions at this time. * Telephone Encounter - Dunia De Leon RN - 07/15/2020 1103 EDT Call from patient. She is wondering if given her history of cerebral venous thrombosis, it is okay for her to get the COVID vaccine. Advised patient we will check with Dr. Velez and call her back. * Telephone Encounter - Dunia De Leon RN - 07/15/2020 1044 EDT Patient last seen 07/04/18. Call to patient. Left message to call back. * Telephone Encounter - Noemi Mederos - 07/15/2020 1008 EDT Call from the patient; she is requesting for a call back to discuss concerns over Covid Vaccine; she is scheduled on 07/29. documented in this encounter Plan of Treatment Not on file documented as of this encounter Visit Diagnoses Not on filedocumented in this encounter Care Teams Preparation Department Supervisor Relationship Specialty Start Date End Date Shelby Li, CUSTOMER SERVICE ASSOCIATE [address] [place] [phone] PCP - General 02/06/18 documented as of this encounter
--- OUTSIDE RECORDS SUMMARY | 2023-10-25 10:46 | XMS_ITS | Encounter Summary ---
Author Organization [facility] Address [address] [place] [address] Care Team Providers Care Medical Asst Name Role Phone Shelby Li SILVIA Primary Care Provider + Reason for Referral * Radiology Services (Routine) - Authorization Not Required Specialty Diagnoses / Procedures Referred By Contac t Referred To Contact Diagnoses Cerebral venous thrombosis of cortical vein Procedures MR ANGIO HEAD VENOGRAM W/WO CONTRAST Julia Montejo NP [address] [phone] Referral ID Status Reason Start Date Expiration Date Visits Requested Visits Authorized [id number] Authorization Not Required 05/21/2018 1 1 Reason for Visit * Reason Comments Hospital Discharge Follow Up [place] [facility] * Consult (Routine) - Closed Specialty Diagnoses / Procedures Referred By Contac t Referred To Contact Neurology Diagnoses Cerebral venous thrombosis Julia Montejo NP [address] [phone] Julia Montejo NP [address] [phone] Referral ID Status Reason Start Date Expiration Date V isits Requested Visits Authorized [id number] Closed Specialty Services Required 02/06/2018 1 1 Encounter Details Date Type Department Care Team (Late st Contact Info) Description 05/21/2018 15:45 EST Office Visit [facility] Adult Neurology - [address] [phone] Julia Montejo NP 1 [facility], Level [address] [place] [address] Cerebral venous thrombosis of cortical vein (Primary Dx) Social History Tobacco Use Types [...] Sign Reading Time Taken Comments Blood Pressure 96/54 05/21/2018 1609 EST Pulse 78 05/21/2018 1609 EST Temperature - - Respiratory Rate 16 05/21/2018 1609 EST Oxygen Saturation 99% 05/21/2018 1609 EST Inhaled Oxygen Concentration - - Weight 80.2 kg (176 lb 12.9 oz) 05/21/2018 1609 EST Height 160 cm (5' 3) 05/21/2018 1609 EST Body Mass Index 31.32 05/21/2018 1609 EST documented in this encounter Functional Status [...] as of this encounter Progress Notes * Julia Montejo Laya, CARDIO CLINICIAN - 05/21/2018 1545 EST Subjective: Bettina Mckeon is a 27 y.o. female who presents for follow-up of central venous thrombus that brought her to [facility] on 02/04/2018. Presenting symptoms were headache, right numbness and expressive aphasia Outside reports reviewed: historical medical records. No past medical history on file. Past Surgical History: Procedure Laterality Date ??? TONSILLECTOMY age 11 Family History Problem Relation Age of Onset ??? Crohn's Disease Mother ??? No Known Father ??? No Known Maternal Grandmother ??? Diabetes Maternal Grandfather ??? No Known Paternal Grandmother father adopted, don't know history ??? No Known Paternal Grandfather father adopted, don't know history ??? No Known Brother ??? No Known Son ??? No Known Daughter Current Outpatient Medications Medication Sig Dispense Refill ??? acetaminophen (TYLENOL ORAL) Take by mouth as needed. ??? enoxaparin (LOVENOX) 80 mg/0.8 mL injection Inject 80 mg into the skin every 12 hours. 20 Syringe 0 ??? warfarin (COUMADIN) 5 mg tablet Take 1 Tab by mouth daily. Call for refill 30 Tab 0 No current facility-administered medications for this visit. No Known Allergies Social History Socioeconomic History ??? Marital status: Single Spouse name: Not on file ??? Number of children: Not on file ??? Years of education: Not on file ??? Highest education level: Not on file Social Needs ??? Financial resource strain: Not on file ??? Food insecurity - worry: Not on file ??? Food insecurity - inability: Not on file ??? Transportation needs - medical: Not on file ??? Transportation needs - non-medical: Not on file Occupational History ??? Not on file Tobacco Use ??? Smoking status: Never Smoker ??? Smokeless tobacco: Never Used Substance and Sexual Activity ??? Alcohol use: No ??? Drug use: No ??? Sexual activity: Yes Other Topics Concern ??? 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 christy Chavez Live in [place] Lives with (Mason) and 2 kids 2 fish, no other pets Review of Systems A ten point review of systems was performed. Pertinent positives are listed below, all others are negative: occasional headache, had right arm tingling shortly after discharge and for a week after but this resolved and has not had any problems since that time. Objective: BP 96/54 (BP Cuff Location: Right arm, Patient Position: Sitting, BP Cuff Sizes: Adult, large) Pulse 78 Resp 16 Ht 160 cm (63) Wt 80.2 kg (176 lb 12.9 oz) SpO2 99% BMI 31.32 kg/m?? General appearance: alert, cooperative, no distress Head: Normocephalic, without obvious abnormality, atraumatic Eyes: conjunctivae/corneas clear. PERRL, EOM's intact. Fundi benign Neck: supple, symmetrical, trachea midline, no carotid bruit and no JVD Lungs: clear to auscultation bilaterally, non labored breathing Heart: regular rate and rhythm, S1, S2 normal, no murmur, click, rub or gallop Extremities: extremities warm, atraumatic, no cyanosis or edema positive pulses bilat Mental Exam: Awake and alert, cooperative, following commands Neurological Exam: Neurological Examination: Cranial Nerve II: Visual ovalle were with in normal limits to confrontation Cranial Nerve III, IV and : oculomotor, trochlear and abducens nerve were intact Cranial Nerve V: Facial sensation was normal to light touch and temperature Cranial Nerve VII: No facial nerve palsy noted Cranial Nerve VIII: hearing intact; Cranial Nerve IX and X: normal movement of soft palate Cranial Nerve XI: able to shrug shoulder with some resistance placed Cranial Nerve XII: tongue midline no deviation with protrusion Motor Normal tone and bulk. No abnormal motor movements. Upper Extremity Right Left Deltoids 5 5 Bicep 5 5 Tricep 5 5 Rubber Goods Supervisor 5 5 ?? Lower Extremity Right Left Hip Flexion 5 5 Knee Flexion 5 5 Knee Extension 5 5 Ankle Plantarflexion 5 5 Ankle Dorsiflexion 5 5 ?? Reflexes 2+ bilateral patellar and achilles reflexes. 1+ bilateral bicep reflex ?? Sensation Intact to crude and light ?? Cerebellar/Movement Function No dysmetria on FNF Imaging All pertinent images reviewed Lab Review All pertinent labs reviewed Assessments: NIHSS: 0 Recent NIHSS Values 05/23/2018 NIHSS Testing Interval: 3 months Interval Exam Date: 05/21/18 Interval Exam Time: 1600 Level of Consciousness (1a. ): 0 LOC Questions (1b. ): 0 LOC Commands (1c. ): 0 Best Gaze (2. ): 0 Visual (3. ): 0 Facial Palsy (4. ): 0 Motor Arm, Left (5a. ): 0 Motor Arm, Rigtht (5b. ): 0 Motor Leg, Left (6a. ): 0 Motor Leg, Right (6a. ): 0 Limb Ataxia (7. ): 0 Sensory (8. ): 0 Best Language (9. ): 0 Dysarthria (10.): 0 Extinction And Inattention: 0 Total: 0 Modified Point Clear: 1 Assessment: Bettina Mckeon is a 27 y.o. female who presents for follow-up of central venous thrombus that brought her to [facility] on 02/04/2018. Presenting symptoms were headache, right numbness and expressive aphasia. Prior to her admission, she was not taking any significant medication or treated for chronic health issues. Ms Mckeon was 9 days post- when deficits occurred. Her delivery date was 01/26/18,where she had an epidural placed with blood patch placed. Once hospitalized, she was started on heparin gtt and transitioned to therapeutic Lovenox because of the safety for . She was discharge to home without therapies. In the first few weeks after discharge from Stroke service, she would have tingling in the fingers, usually occurring at night. According to Ms Mckeon, she has not experienced this for over several months. No other deficits noted. She is being followed by hematology. Plan: ?? Continue anticoagulation as per hematology recommendations ?? Repeat MR Venogram in 2 months (07/2018) ?? Follow up in Stroke clinic 2 months ?? Educated on signs and symptoms of stroke (FAST) ?? Provided contact number for my office for any questions Julia Montejo APRN documented in this encounter Plan of Treatment Not on file documented as of this encounter Procedures Procedure Name Priority Date/Time Associated Diagnosis Comments MR ANGIO HEAD VENOGRAM W/WO CONTRAST Routine 07/04/2018 7:10 EDT Cerebral venous thrombosis of cortical vein documented in this encounter Results * MR ANGIO HEAD VENOGRAM W/WO CONTRAST (07/04/2018 7:10 EDT) Anatomical Region Laterality Modality Other 07/04/2018 7:10 EDT 07/04/2018 10:20 EDT Narrative 07/04/2018 10:20 EDT MR ANGIO HEAD VENOGRAM W/WO CONTRAST ??07/04/2018 7:10 AM Clinical History: [id number] and intraspinal phlebitis and [id number]; Assess vessels and thrombus Comparison: February 04, 2018 Technique: MR venogram of the head without and with intravenous contrast Findings: The previously seen cortical vein thrombosis near the vertex on the left is less conspicuous on this examination has decreased in size slightly but is otherwise unchanged. No new cortical venous thrombosis is identified. The venous sinuses are patent as are the internal jugular veins. To the extent that the arterial structures are evaluated, no significant abnormality is identified. No evidence of mass effect or midline shift in the brain parenchyma. No concerning parenchymal or leptomeningeal enhancement is identified. Orbits are within normal limits to the extent that they are evaluated on this examination. IMPRESSION: Interval decrease in size of known cortical thrombosis near the vertex on the left, although without recanalization of the affected cortical vein. No new thrombus identified. Procedure Note Oswald Ann MD, - 07/04/2018 MR ANGIO HEAD VENOGRAM W/WO CONTRAST 07/04/2018 7:10 AM Clinical History: [id number] and intraspinal phlebitis and [id number]; Assess vessels and thrombus Comparison: February 04, 2018 Technique: MR venogram of the head without and with intravenous contrast Findings: The previously seen cortical vein thrombosis near the vertex on the left is less conspicuous on this examination has decreased in size slightly but is otherwise unchanged. No new cortical venous thrombosis is identified. The venous sinuses are patent as are the internal jugular veins. To the extent that the arterial structures are evaluated, no significant abnormality is identified. No evidence of mass effect or midline shift in the brain parenchyma. No concerning parenchymal or leptomeningeal enhancement is identified. Orbits are within normal limits to the extent that they are evaluated on this examination. IMPRESSION: Interval decrease in size of known cortical thrombosis near the vertex on the left, although without recanalization of the affected cortical vein. No new thrombus identified. Julia Montejo NP IMG MRI ORDERABLES documented in this encounter Visit Diagnoses Diagnosis Cerebral venous thrombosis of cortical vein- Primary documented in this encounter Care Teams Medical Asst Relationship Specialty Start Date End Date Shelby Li, CARDIO CLINICIAN [address] [place] [phone] PCP - General 02/06/18 documented as of this encounter
--- OUTSIDE RECORDS SUMMARY | 2023-10-25 10:46 | XMS_ITS | Encounter Summary ---
Author Organization [facility] Address [address] [place] [address] Care Team Providers Care Hydraulic Billet Maker Name Role Phone Shelby Li SILVIA Primary Care Provider + Reason for Visit * Reason Onset Date Comments Appointment Related 06/04/2018 Encounter Details Date Type Department Care Team (Late st Contact Info) Description 06/04/2018 Telephone [facility] Adult Neurology - [facility] [address] [place] [address] Reinier Velez MD [address] [place] [phone] Appointment Related Social History Tobacco Use Types [...] 11:19 EST Sexual Orientation Not on file COVID-19 Exposure Response Date Recorded In the last month, have you been in contact with someone who was confirmed or suspected to have Coronavirus / COVID-19? No / Unsure 02/16/2021 10:19 EST documented as of this encounter Functional Status [...] encounter Miscellaneous Notes * Telephone Encounter - Abril Mercado - 06/04/2018 1102 EST Reason for Call: Appointment Related Call Detail: I spoke with Bettina and confirmed not scheduling with Julia, as she is not having symptoms, but we are keeping her appointment with Dr. Velez. I had her MR Angiogram scheduled and we went over the details of that exam in the morning prior to Dr. Velez's appointment. Last visit: 05/21/2018 Julia Montejo Next visit: 07/04/2018 7am MR Angio, and 2pm Follow-up with Dr. Velez same day. Abril Mercado 06/04/2018 11:03 documented in this encounter Plan of Treatment Not on file documented as of this encounter Visit Diagnoses Not on filedocumented in this encounter Care Teams Hydraulic Billet Maker Relationship Specialty Start Date End Date Shelby Li, SILVIA [address] [place] [place] [phone] PCP - General 02/06/18 documented as of this encounter
--- OUTSIDE RECORDS SUMMARY | 2023-10-25 10:46 | XMS_ITS | Encounter Summary ---
Author Organization [facility] Address [address] [place] [address] Care Team Providers Care Barrel Maker Name Role Phone Shelby Li SILVIA Primary Care Provider + Reason for Visit * Reason Onset Date Comments Patient Outreach 06/18/2018 INR Encounter Details Date Type Department Care Team (Late st Contact Info) Description 06/18/[address] [facility] Cancer Center Hematology & Oncology - [address] [address] Benito Casas MD [address] [place] [address], [facility] [address] [place] [address] Patient Outreach (INR) Social History Tobacco Use Types Packs/Day Years [...] encounter Miscellaneous Notes * Telephone Encounter - Leonela Lancaster - 06/18/2018 0853 EDT Reason for Call: Patient Outreach (INR) Summary/Symptoms: Pt has not heard back about her labs from and is not sure what dosage she is supposed to be taking Please call back as soon as possible Leonela Lancaster 06/18/2018 8:53 documented in this encounter Plan of Treatment Not on file documented as of this encounter Visit Diagnoses Not on filedocumented in this encounter Care Teams Barrel Maker Relationship Specialty Start Date End Date Shelby Li APRN [address] [place] [phone] PCP - General 02/06/18 documented as of this encounter
--- OUTSIDE RECORDS SUMMARY | 2023-10-25 10:46 | XMS_ITS | Encounter Summary ---
Author Organization [facility] Address [address] [place] [address] Care Team Providers Care Casting Room Helper Name Role Phone Shelby Li SILVIA Primary Care Provider + Encounter Details Date Type Department Care Team (Late st Contact Info) Description 07/13/2018 Anti-coag visit [facility] Hematology & Oncology - [facility] [address] [place] [address] Shira Lombardi, RN [address] [place] [address] Social History Tobacco Use Types Packs/Day Years [...] Progress Notes * Shira Lombardi, RN - 07/13/2018 1350 EDT Pt instructed to avoid missed doses, increase warfarin to 7.5mg Fridays 5m all other days INR in one week documented in this encounter Plan of Treatment Not on file documented as of this encounter Procedures Procedure Name Priority Date/Time Associated Diagnosis Comments PROTIME Routine 07/13/2018 documented in this encounter Results * PROTIME (07/13/2018) INR, External 1.67 [facility] Blood specimen (specimen) 07/13/2018 Historical Provider HEMATOLOGY & PF4 ORDERABLES [facility] documented in this encounter Visit Diagnoses Not on filedocumented in this encounter Care Teams Casting Room Helper Relationship Specialty Start Date End Date Shelby Li APRN [address] [place] [phone] PCP - General 02/06/18 documented as of this encounter
--- OUTSIDE RECORDS SUMMARY | 2023-10-25 10:46 | XMS_ITS | Encounter Summary ---
Author Organization [facility] Address [address] [place] [address] Care Team Providers Care Bone Char Puller Name Role Phone Shelby Li SILVIA Primary Care Provider + Encounter Details Date Type Department Care Team (Late st Contact Info) Description 05/21/2018 Documentation Visit [facility] Center Hematology & Oncology - [facility] [address] [place] [address] Eleazar Ahumada, LOCK OPERATOR Social History Tobacco Use Types Packs/Day Years [...] as of this encounter Progress Notes * Eleazar Ahumada MSW - 05/21/2018 1016 EST SW F/U Visit Presenting Issue I met w/ the pt and Cristopher in the Hem/Onc waiting room. Pt provided the income verification and the participation agreement for the HAP program. Pt is requesting assistance w/ her co-pay for Lovenoxand the Gift of Sight Program. Pt was told that [facility] had sent a voucher to the [facility] pharmacy. HAP waswilling to help with gift of sight pending the income and participation agreement. Person Centered Goals HAP: Co-pay assistance for Lovenox Gift of Sight Plan I sent HAP the mentioned items above with MEREDITH Vega for script purposes via email. Eleazar KLEIN documented in this encounter Plan of Treatment Not on file documented as of this encounter Visit Diagnoses Not on filedocumented in this encounter Care Teams Bone Char Puller Relationship Specialty Start Date End Date Shelby Li, VETERINARY LABORATORY TECHNICIAN [address] [place] [phone] PCP - General 02/06/18 documented as of this encounter
--- OUTSIDE RECORDS SUMMARY | 2023-10-25 10:46 | XMS_ITS | Encounter Summary ---
Author Organization [facility] Address [address] [place] [address] Care Team Providers Care Stock House Worker Name Role Phone Shelby Li SILVIA Primary Care Provider + Reason for Visit * Reason Onset Date Comments Appointment Related 07/02/2018 Medication Management 07/02/2018 Encounter Details Date Type Department Care Team (Late st Contact Info) Description 07/02/2018 Telephone [facility] Adult Neurology - [facility] [place] [address] [place] [address] Julia Montejo, RAMON [address] [place] [address] [address] [place] [address] Appointment Related; Medication Management Social History Tobacco Use Types Packs/Day Years [...] encounter Miscellaneous Notes * Telephone Encounter - Lashae Schofield - 07/03/2018 1355 EDT Patient calling again anxious about getting her Ativan as she has an MRI tomorrow morning at 7am. She has a new born and will need to pick pack worker today amrit. [facility] in [place]. Will send to [facility] per nurse Codi. * Telephone Encounter - Codi Sullivan, RN - 07/03/2018 1114 EDT Pended Ativan Rx for provider authorization. Spoke to Bettina. She states she did not take anythingat previous MRI but suffered through it and would like something to allow her to relax or possibly fall asleep. * Telephone Encounter - Myah Yee - 07/03/2018 0822 EDT Patient called in again, to see if Julia Segal would prescribe a sedative of some sort for her MRI Apt that is tomorrow (4.3.19) at 7:00am. She states she would like it to be sent to the [facility] in [facility]. She would like a call back. [phone] * Telephone Encounter - Shira Sosa - 07/02/2018 0912 EDT MRI transferred pt to inquire about getting a sedative prescribed for her MRI scheduled on 07/04. Please follow up with pt to inform her if there is a prescription being sent documented in this encounter Plan of Treatment Not on file documented as of this encounter Visit Diagnoses Not on filedocumented in this encounter Care Teams Stock House Worker Relationship Specialty Start Date End Date Shelby Li, LANDSCAPER HELPER [address] [place] [phone] PCP - General 02/06/18 documented as of this encounter
--- OUTSIDE RECORDS SUMMARY | 2023-10-25 10:46 | XMS_ITS | Encounter Summary ---
Author Organization [facility] Address [address] [place] [address] Care Team Providers Care Litigation Attorney Name Role Phone Shelby Li SILVIA Primary Care Provider + Reason for Visit * Reason Onset Date Comments New/Evolving Symptoms 02/16/2021 Encounter Details Date Type Department Care Team (Late st Contact Info) Description 02/16/2021 Telephone [facility] Adult Neurology - Main [place] [address] [place] [address] Unknown, Provider, New/Evolving Symptoms Social History Tobacco Use Types Packs/Day Years [...] encounter Miscellaneous Notes * Telephone Encounter - Nasrin Washington - 02/16/2021 0856 EST Bettina called with concerns over symptoms that she is currently having that are similar to those she experienced when she had a blood clot in her brain several years ago. LS on 10/22/[address] Velez on EP5. Scheduled FUR 10/22/2018 no show. Informed that she would now be considered a new patient again as it has been more than 3 years since LV. (Called 07/2020 with questions about COVID vaccine. Previous encounter indicates appointment scheduled but not on appointment desk.) Advised to contact PCP office for guidance, and to request referral to return to [facility] Neurology. Bettina said that she would, although she has not been following regularly with verified listed PCP. Also advised to go to ED or Urgent Care if necessary. documented in this encounter Plan of Treatment Not on file documented as of this encounter Visit Diagnoses Not on filedocumented in this encounter Care Teams Litigation Attorney Relationship Specialty Start Date End Date Shelby Li APRN [address] [place] [place] [phone] PCP - General 02/06/18 documented as of this encounter
--- OUTSIDE RECORDS SUMMARY | 2023-10-25 10:46 | XMS_ITS | Encounter Summary ---
Author Organization [facility] Address [address] [place] [address] Care Team Providers Care Head Of Design Name Role Phone Shelby Li SILVIA Primary Care Provider + Reason for Visit * Reason Comments Follow-up Encounter Details Date Type Department Care Team (Late st Contact Info) Description 07/23/2018 14:00 EDT Office Visit [facility] Hematology & Oncology - [address] [address] Theodore Casas MD [address] [place] [address], [facility] [address] [place] [address] Cerebral venous thrombosis (Primary Dx) [...] Sign Reading Time Taken Comments Blood Pressure 117/55 07/23/2018 1354 EDT Pulse 86 07/23/2018 1354 EDT Temperature 36.4 ??C (97.5 ??F) 07/23/2018 1354 EDT Respiratory Rate 16 07/23/2018 1354 EDT Oxygen Saturation 98% 07/23/2018 1354 EDT Inhaled Oxygen Concentration - - Weight 82.1 kg (180 lb 14.4 oz) 07/23/2018 1354 EDT Height - - Body Mass Index 32.04 07/04/2018 1431 EDT documented in this encounter [...] Patient Instructions* Theodore Casas MD, MD - 07/23/2018 14:00 EDT Stop taking the coumadin/Warfarin on August 04, 2018 About 2 weeks later (around August 18, 2018), go to the lab at [facility] to have a thrombophilia panel performed 2 weeks after that (first week of September 2018), come back and see me Okay to start NSAIDs (Advil, Aleve, etc) starting around August 07 documented in this encounter Progress Notes * Theodore Casas MD, MD - 07/23/2018 1400 EDT Thrombosis & Hemostasis Program (THP) Follow Up Visit Date of Service: 07/23/2018 Problem List: Patient Active Problem List Diagnosis ??? Cerebral venous thrombosis Risk fx: Recent delivery with epidural/blood patch ?? 01/26/2018 - Delivery with epidural; blood patch performed 01/29/2018. ?? 02/03/2018 - P/t [facility] with headache, right jessie-body numbness, expressive [...] pending thromophilia panel, f/u in our clinic. Start ASA 81 mg po qday while off of anticoagulation. F/u plans: Thrombophilia panel review. Discuss long-term contraception recommendations. Long-term tx with asa 81? CC: Chief Complaint Patient presents with ??? Follow-up HPI: Bettina Mckeon is a 27 y.o. 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 She has been followed by neurology. Recently stopped . Doing well on warfarin without bleeding/bruising. Headaches ongoing. ROS: A complete 12-point review of systems was reviewed and was otherwise negative except as documented above and as follows: headaches. Social History: Patient reports that has never smoked. she has never used smokeless tobacco. She reports that she does not drink alcohol or use drugs. 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 christy Chavez Live in [place] Lives with (Mason) and 2 kids 2 fish, no other pets Medications: Current Outpatient Medications: acetaminophen (TYLENOL ORAL) amLODIPine (NORVASC) 2.5 mg tablet BIOTIN ORAL warfarin (COUMADIN) 5 mg tablet No current facility-administered medications for this visit. Allergies: Patient has No Known Allergies. Physical Exam: Vitals: 07/23/18 1354 BP: 117/55 Pulse: 86 Resp: 16 Temp: 36.4 ??C (97.5 ??F) TempSrc: Tympanic SpO2: 98% Weight: 82.1 kg (180 lb 14.4 oz) Estimated body mass index is 32.04 kg/m?? as calculated from the following: Height as of 07/04/18: 160 cm (63). Weight as of this encounter: 82.1 kg (180 lb 14.4 oz). Gen: Alert and oriented x3. No distress. Pulm: Clear to auscultation, No wheeze, good air movement throughout CV: Regular rate and rhythm, no murmurs, no carotid bruits Abd: Soft, non-tender, non-distended, no organomegaly, positive active bowel sounds, No rebound/guarding Ext: Right: No edema. No cords, hemosiderin deposits, petechiae, varicose veins. Left: No edema. No cords,hemosiderin deposits, petechiae, varicose veins. Pulses: 2+ and symmetric Neuro: nonfocal Labs: Complete Blood Count Lab Results Component Value Date WBC 5.58 05/21/2018 WBC 8.23 03/12/2018 WBC 8.77 02/05/2018 RBC 4.45 05/21/2018 HGB 13.3 05/21/2018 HGB 13.3 03/12/2018 HGB 12.6 02/05/2018 HCT 38.8 05/21/2018 MCV 87 05/21/2018 PLT 248 05/21/2018 PLT 244 03/12/2018 PLT 251 02/05/2018 MPV 9.8 05/21/2018 RDWCV 11.7 05/21/2018 Lab Results Component Value Date DIFFTYPE Automated 05/21/2018 NEUTROABS 2.53 05/21/2018 LYMPHSABS 2.18 05/21/2018 MONOSABS 0.75 05/21/2018 EOSABS 0.08 05/21/2018 BASOSABS 0.02 05/21/2018 NRBC 1 05/21/2018 Chemistries Lab Results Component Value Date NA 140 03/12/2018 K 4.3 03/12/2018 CL 105 03/12/2018 CO2 24 03/12/2018 BUN 16 03/12/2018 CREATININE 0.68 03/12/2018 CALCGFR 121 03/12/2018 CALCIUM 9.1 03/12/2018 CALCCA 8.8 03/12/2018 Cardiovascular No results found for: SCRP No results found for: CHOL, LDLBASE, CHOLHDL, HDL, HDLC, LPA, LIPOA, TRIG No results found for: BNP, SCRP, HSCRP, HOMOCYS, HOMOCYSTEINE, TROPONINI, POCTROP Thrombosis Panel Lab Results Component Value Date PROTIME 27.3 (A) 05/28/2018 INR 1.67 07/13/2018 INR 1.90 07/05/2018 PTT 26 02/04/2018 Imaging: MR ANGIO HEAD VENOGRAM W/WO CONTRAST ??07/04/2018 7:10 AM ?? Clinical History: W87-Ogofsmisflsk and intraspinal phlebitis and [id number]; Assess vessels and thrombus ?? Comparison: February 04, 2018 ?? Technique: MR venogram of the head without and with intravenous contrast ?? Findings: The previously seen cortical vein thrombosis near the vertex on the left is less conspicuous on this examination has decreased in size slightly but is otherwise unchanged. No new cortical venous thrombosis is identified. The venous sinuses are patent as are the internal jugular veins. To the extent that the arterial structures are evaluated, no significant abnormality is identified. ?? No evidence of mass effect or midline shift in the brain parenchyma. No concerning parenchymal or leptomeningeal enhancement is identified. Orbits are within normal limits to the extent that they are evaluated on this examination. ?? IMPRESSION: Interval decrease in size of known cortical thrombosis near the vertex on the left, although without recanalization of the affected cortical vein. No new thrombus identified. Assessment/plan: Bettina Mckeon is a 27 y.o. female with a history of -associated cerebral vein thrombosis, finishing up her 6th month of anticoagulation. She'll stop the anticoagulation, start ASA 81 mg poqday, have a thrombophilia panel performed, and follow up shortly thereafter. Scar Casas MD [facility] [employer] Tender Ham and Hemostasis Program Department of Hematology [facility] Please contact my office with questions at [...] are documented above. Outcomes: verbalized understanding Today's tzve-vx-vdjo visit time was 20 minutes with 10 minutes spent in counseling and/or coordination of care for the problems listed above. Portions of this document may have been prepared with speech recognition software or keyboard manager oracle database techniques. Minor irregularities or keyboarding misprints may [...] mg into the skin every 12 hours. Error 05/21/2018 07/23/2018 LORazepam (ATIVAN) 1 mg tablet Take 1 tablet by mouth once for 1 dose. Daily Max: 1 mg Error 07/03/2018 07/23/2018 documented as of this encounter Care Teams Head Of Design Relationship Specialty Start Date End Date Shelby Li, SILVIA [address] [place] [address] PCP - General 02/06/18 documented as of this encounter
--- OUTSIDE RECORDS SUMMARY | 2023-10-25 10:46 | XMS_ITS | Encounter Summary ---
Author Organization [facility] Address [address] [place] [address] Care Team Providers Care Dairy Truck Driver Name Role Phone Shelby Li SILVIA Primary Care Provider + Encounter Details Date Type Department Care Team (Late st Contact Info) Description 05/21/2018 Anti-coag visit [facility] Hematology & Oncology - [place] [address] [place] [address] Shira Lombardi, RN [address] [place] [address] Social History Tobacco Use Types Packs/Day Years [...] Progress Notes * Shira Lombardi, RN - 05/21/2018 1143 EST Pt to initiate warfarin 5mg this PM, will remain on Lovenox as bridge. Pt received written instuctions. Patient Education Topic: Warfarin Method: Handout and Verbal Taught to: Patient Patient Barriers: None Outcomes: independent Signature:Shira Lombardi TRAINING COORDINATOR CACP documented in this encounter Plan of Treatment Not on file documented as of this encounter Visit Diagnoses Not on filedocumented in this encounter Care Teams Dairy Truck Driver Relationship Specialty Start Date End Date Shelby Li APRN [address] [place] [id number] PCP - General 02/06/18 documented as of this encounter
--- OUTSIDE RECORDS SUMMARY | 2023-10-25 10:46 | XMS_ITS | Encounter Summary ---
Author Organization [facility] Address [address] [place] [address] Care Team Providers Care Bmet Name Role Phone Shelby Li SILVIA Primary Care Provider + Encounter Details Date Type Department Care Team (Late st Contact Info) Description 05/14/2018 Historical Results Only [facility] - Main [address] [address] Davey Nielsen MD Social History Tobacco Use Types Packs/Day Years [...] Procedure Name Priority Date/Time Associated Diagnosis Comments HPV DNA DETECTION WITH GENOTYPING, PCR Routine 05/14/2018 14:26 EST PAP TEST Routine 05/14/2018 8:22 EST documented in this encounter Results * HUMAN PAPILLOMAVIRUS (HPV) DETECTION-HIGH RISK TYPES (05/14/2018 14:26 EST) HPV other High Risk types, PCR NEG 05/21/2018 15:35 EST [facility] Comment: Negative for HPV types 16, 18, 31, 33, 35, 39, 45, 51, 52, 56, 58, 59, 66, 68. Method: Cervista HPV HR (High Risk) DNA test. 05/14/2018 14:2 6 EST 05/18/2018 14:26 EST Davey Nielsen MD MICROBIOLOGY - GENER AL ORDERABLES [facility] * PAP TEST (05/14/2018 8:22 EST) 05/14/2018 8:22 EST 05/15/2018 8:22 EST Narrative [facility] - 05/21/2018 15:59 EST ----- ------- Name: BETTINA MCKEON ?: [birth year] ?Age/Sex: 27/F ?Unit#: [id number] ? Loc: AGO ? Status: REG POV ?? Reg Date: 05/14/18 ? Pt.Phone Number: ? ----- ------- This is an Amended or Addendum report. Any previous versions are stored internally and are available if necessary by calling the [facility] Dept at [phone] Specimen: [id number] ? STATUS: SOUT ?Spec Date:05/14/18 ? Physician Copies: ?Davey Nielsen MD ? Tissues: ? Cervical/Endo Pap ?Tj Carrillo ?? CPT: 78374 ?? Units: ??1 ----- ------- ? CYTOLOGY DIAGNOSIS SPECIMEN ADEQUACY: ?Satisfactory for evaluation. Transformation zone component present. GENERAL CATEGORIZATION: ?Epithelial Cell Abnormality. DESCRIPTIVE DIAGNOSIS: ??Squamous cell Abnormality - ?? Atypical squamous cells - undetermined significance. ?? Shift in bess present suggestive of bacterial vaginosis. RECOMMENDATIONS/COMMENTS: ??Recommend following the Updated consensus guidelines algorithms for managing abnormal cervical cancer screening tests and cancer precursors Management algorithms have been distributed and are also available online at www.ASCCP.org/consensus.shtml. ----- ------- ?HPV DNA RESULTS ? LABORATORY ?? Date ? Time Test ?Result ?? Flag ?Normal Range ?? 05/14/181425 HPV DNA RESULT ??NEG ? Negative for HPV types 16, 18, 31, 33, 35, 39, 45, 51, 52, ? 56, 58, 59, 66, 68. ? Method: Omnioxista HPV HR (High Risk) DNA test. ----- ------- ORDER QUERIES: LMP: 05/04/2018- [id number] ? N Post ? N ??PREVIOUS ATYPICAL: N BCP/HRT? N Rad Rx? N IUD? N ??PAP PLUS HPV? N ??REFLEX TO HR-HPV IF ASCUS Y REFLEX TO HPV 16/18 IF HPV POS/PAP NEG N HPV REGARDLESS? N ??RFLX HPV IF LSIL ?? Signed ____(signature on file)____ Jimmy Mckay 05/21/18 ?? By the signature above, the attending physician certifies that he/she has personally conducted a gross and/or microscopic examination of the described specimens and rendered or confirmed the above diagnosis. Test Performed by [facility], [address] [place] [id number] [address] Supervisor: Luiza Baron MD PHD ----- ------- Davey Nielsen MD PATHOLOGY ORDERABLES Performing Organization Address City/State/[facility] Co de Phone Number [facility] documented in this encounter Visit Diagnoses Not on filedocumented in this encounter Care Teams Bmet Relationship Specialty Start Date End Date Shelby Li, WORK MANAGER [address] [facility] [place] [address] PCP - General 02/06/18 documented as of this encounter
--- OUTSIDE RECORDS SUMMARY | 2023-10-25 10:46 | XMS_ITS | Encounter Summary ---
Author Organization [facility] Address [address] [place] [address] Care Team Providers Care Evaluation Analyst Name Role Phone Shelby Li SILVIA Primary Care Provider + Reason for Visit * Reason Comments Follow-up venous thrombus in b rain Encounter Details Date Type Department Care Team (Late st Contact Info) Description 05/21/2018 10:00 EST Office Visit [facility] Hematology & Oncology - [address] [id number] Theodore Casas MD [address] [place] [address], [address] [place] [address] Cerebral venous thrombosis (Primary Dx) [...] Sign Reading Time Taken Comments Blood Pressure 149/66 05/21/2018 1013 EST Pulse 70 05/21/2018 1013 EST Temperature 36.1 ??C (97 ??F) 05/21/2018 1013 EST Respiratory Rate 18 05/21/2018 1013 EST Oxygen Saturation 100% 05/21/2018 1013 EST Inhaled Oxygen Concentration - - Weight 80.2 kg (176 lb 12.8 oz) 05/21/2018 1013 EST Height - - Body Mass Index 31.32 02/04/2018 0741 EST documented in this encounter [...] * Patient Instructions* Theodore Casas MD - 05/21/2018 10:00 EST Great to see you! Let's switch you over to the warfarin, we will send a starter pack to the [facility] pharmacy, let manishw if it's crazy expensive and we can send it to [facility] instead. We'll plan on continuing your warfarin for another 3-kendal months, though we'll try to firm up our duration at your next visit. You'll get your INRs checked at [facility]. Goal INR is 2-3. We'll continue the Lovenox shots for the first week or so, chun will let you know specifics. Chun can be reached at our phone number. Get your bloodwork drawn today. We'll send warfarin/coumadin to the [facility] pharmacy to get you going, take your first dose today. documented in this encounter Ordered Prescriptions Prescription Sig Dispensed Refills Start Date End Da te warfarin (COUMADIN) 5 mg tablet Take 1 Tab by mouth daily. Call for refill 30 Tab 05/21/2018 05/21/2018 documented in this encounter Progress Notes * Theodore Casas MD - 05/21/2018 1000 EST Thrombosis & Hemostasis Program (THP) Follow Up Visit Date of Service: 05/21/2018 Problem List: Patient Active Problem List Diagnosis ??? Cerebral venous thrombosis Risk fx: Recent delivery with epidural/blood patch ?? 01/26/2018 - Delivery with epidural; blood patch performed 01/29/2018. ?? 02/03/2018 - P/t [facility] with headache, right jessie-body [...] warfarin. ?? 05/21/2018 Neuro - ordered MRV. F/u plans: Duration of 6 mo of AC? Discuss long-term contraception recommendations. CC: Chief Complaint Patient presents with ??? Follow-up venous thrombus in brain HPI: Bettina Mckeon is a 27 y.o. female with a history of provoked, associated left cortical vein thrombus. She has been on low molecular weight heparin since her diagnosis in early February 2018. No changes in headache. It's constant. Sometimes it's worse. Behind right eye initially, sometimes pressure all over head. Worse with movement. ROS: I completed a 10 point review of systems which is documented on the follow up visit form scanned into [employer]ISM Pertinent positives: per form. Ongoing headache. Pertinent negatives: per form Social History: Patient reports that has never smoked. she has never used smokeless tobacco. She reports that she does not drink alcohol or use drugs. 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 christy Chavez Live in [place] Lives with (Mason) and 2 kids 2 fish, no other pets Medications: Current Outpatient Medications: acetaminophen (TYLENOL ORAL) enoxaparin (LOVENOX) 80 mg/0.8 mL injection warfarin (COUMADIN) 5 mg tablet No current facility-administered medications for this visit. Allergies: Patient has No Known Allergies. Physical Exam: Vitals: 05/21/18 1013 BP: (!) 149/66 Pulse: 70 Resp: 18 Temp: 36.1 ??C (97 ??F) TempSrc: Tympanic SpO2: 100% Weight: 80.2 kg (176 lb 12.8 oz) Estimated body mass index is 31.32 kg/m?? as calculated from the following: Height as of 02/04/18: 160 cm (63). Weight as of this encounter: 80.2 kg (176 lb 12.8 oz). Gen: Alert and oriented x3. No distress. Pulm: Clear to auscultation, No wheeze, good air movement throughout CV: Regular rate and rhythm, no murmurs, no carotid bruits Abd: Soft, non-tender, non-distended, no organomegaly, positive active bowel sounds, No rebound/guarding Ext: Right: No lower extremity edema, hemosiderin deposits, petechiae, varicose veins. Left: No lower extremity edema, hemosiderin deposits, petechiae, varicose veins. Labs: Complete Blood Count Lab Results Component [...] Panel Lab Results Component Value Date PROTIME 12.3 05/21/2018 INR 1.0 05/21/2018 INR 1.0 02/04/2018 PTT 26 02/04/2018 Prothrombin gene mutation and factor V Leiden testing not covered by patient's insurance. Imaging: No results found for this or any previous visit. Results for orders placed during the hospital [...] above interpretation and agree with the findings. Assessment/plan: Bettina Mckeon is a 27 y.o. female with a history of -associated left cortical vein thrombus who has completed about 2 months of anticoagulation with low molecular heparin. We had an extensive conversation today about the pathophysiology of cerebral vein thrombosis and potential options for ongoing management. After informed conversation about the risks and benefits of the various options, the patient is agreeable for switching to warfarin therapy at this point. Our office will aid inthis transition and INR management (d/w our RN Chun Lombardi). We will continue her anticoagulation for at least 6 months. She saw a neurologist later in the afternoon who ordered an MRV. Should there be evidence of progression of the thrombus, I'll likely alter her anticoagulation regimen and/or increased duration of therapy. More planning to come at her follow-up. Scar Casas MD [facility] [employer] Loader Ham and Hemostasis Program Department of Hematology [email or web address] Please contact my office with questions at . cc: Shelby Casas Today's qpta-st-vrjq visit time was 25 minutes with 15 minutes spent in counseling and/or coordination of care for the problems listed above. Portions of this document may have been prepared with speech recognition software or keyboard database analyst techniques. Minor irregularities or keyboarding misprints may be present documented in this encounter Plan of Treatment Not on file documented as of this encounter Results * PROTIME (05/21/2018 11:00 EST) Pro Time 12.3 10.3 - 13.4 secs 05/21/2018 11:28 [facility] I.N.R. 1.0 0.9 - 1.1 Ratio 05/21/2018 11:28 [facility] Comment: Moderate Intensity Coumadin INR = 2.0-3.0 Adjustments in anticoagulant therapy dose should be based upon the INR and NOT the Pro Time. Blood specimen (specimen) BLOOD SPECIMEN / Unknown 05/21/2018 11:00 EST 05/21/2018 11:05 EST Theodore Casas MD HEMATOLOGY & PF4 ORD ERABLES [facility] [address] [place] [address] * COMPLETE BLOOD COUNT AND DIFFERENTIAL (05/21/2018 11:00 EST) WBC 5.58 4.0 - 12.4 K/cmm 05/21/2018 11:12 [facility] RBC 4.45 3.86 - 5.04 M/cmm 05/21/2018 11:12 [facility] Hemoglobin 13.3 11.6 - 15.2 gm/dl 05/21/2018 11:12 [facility] HCT 38.8 34.9 - 44.4 % 05/21/2018 11:12 [facility] MCV 87 81 - 98 fl 05/21/2018 11:12 [facility] MCH 29.9 26.7 - 33.3 pg 05/21/2018 11:12 [facility] MCHC 34.3 32.1 - 35.9 gm/dl 05/21/2018 11:12 [facility] RDW-CV 11.7 <14.7 % 05/21/2018 11:12 [facility] RDW-SD 37.2 <50.4 fl 05/21/2018 11:12 [facility] PLT 248 141 - 377 K/cmm 05/21/2018 11:12 [facility] MPV 9.8 9.5 - 12.7 fl 05/21/2018 11:12 [facility] Nucleated RBC's 1 /100 WBC'S 05/21/2018 11:12 [facility] % Neutrophils 45.3 % 05/21/2018 11:12 [facility] % Lymphocytes 39.1 % 05/21/2018 11:12 [facility] % Monocytes 13.4 % 05/21/2018 11:12 [facility] % Eosinophils 1.4 % 05/21/2018 11:12 [facility] % Basophils 0.4 % 05/21/2018 11:12 [facility] % Immature Grans 0.4 % 05/21/2018 11:12 [facility] ABS Neutrophils 2.53 2.20 - 8.85 K/cmm 05/21/2018 11:12 [facility] ABS Lymphs 2.18 1.09 - 3.30 K/cmm 05/21/2018 11:12 [facility] ABS Monocytes 0.75 0.1 - 0.8 K/cmm 05/21/2018 11:12 [facility] ABS Eosinophils 0.08 0.03 - 0.61 K/cmm 05/21/2018 11:12 [facility] ABS Basophils 0.02 0.01 - 0.11 K/cm 05/21/2018 11:12 [facility] ABS Immature Grans 0.02 0 - 0.06 K/cm 05/21/2018 11:12 [facility] Type of Diff: Automated 05/21/2018 11:12 [facility] Blood specimen (specimen) BLOOD SPECIMEN / Unknown 05/21/2018 11:00 EST 05/21/2018 11:05 EST Theodore Casas MD PACKAGES & DNA PROBE ORDERABLES Performing Organization Address City/State/[facility] Co de Phone Number [facility] [address] [place] [address] documented in this encounter Visit Diagnoses Diagnosis Cerebral venous thrombosis- Primary Cerebral thrombosis without mention of cerebral infarction documented in this encounter Discontinued Medications Medication Sig Discontinue Reason Start Date End Da te warfarin (COUMADIN) 5 mg tablet Take 1 Tab by mouth daily. Call for refill 05/21/2018 05/21/2018 documented as of this encounter Care Teams Evaluation Analyst Relationship Specialty Start Date End Date Shelby Li APRN [address] [place] [phone] PCP - General 02/06/18 documented as of this encounter
--- OUTSIDE RECORDS SUMMARY | 2023-10-25 10:46 | XMS_ITS | Encounter Summary ---
Author Organization [facility] Address [address] [place] [address] Care Team Providers Care Pin Drafting Machine Tender Name Role Phone Shelby Li SILVIA Primary Care Provider + Encounter Details Date Type Department Care Team (Late st Contact Info) Description 05/21/2018 10:49 EST - 05/21/2018 23:59 EST Hospital Encounter [facility] [address] [place] [address] Theodore Casas MD [address] [place] [address], [facility] [address] [place] [address] Discharge Disposition: Auto Discharge Social History Tobacco [...] 12 hours. 20 Syringe 05/21/2018 07/23/2018 documented as of this encounter Discharge Disposition Disposition Code Departure Means Destination Auto Discharge Home documented in this encounter Plan of Treatment Not on file documented as of this encounter Visit Diagnoses Not on filedocumented in this encounter Care Teams Pin Drafting Machine Tender Relationship Specialty Start Date End Date Shelby Li, ASSISTANT PROFESSOR OF ECONOMICS [address] [place] [phone] PCP - General 02/06/18 documented as of this encounter
--- OUTSIDE RECORDS SUMMARY | 2023-10-25 10:46 | XMS_ITS | Encounter Summary ---
Author Organization [facility] Address [address] [place] [address] Care Team Providers Care Communication Signals Intelligence Name Role Phone Shelby Li SILVIA Primary Care Provider + Encounter Details Date Type Department Care Team (Late st Contact Info) Description 06/29/2018 Anti-coag visit [facility] Cancer Center Hematology & Oncology - [facility] [address] [place] [address] Shira Lombardi, RN [address] [place] [address] Social History Tobacco Use Types Packs/Day Years [...] as of this encounter Progress Notes * Shria Lombardi, RN - 06/29/2018 1142 EDT Pt to remain on 5mg daily INR in one week documented in this encounter Plan of Treatment Not on file documented as of this encounter Procedures Procedure Name Priority Date/Time Associated Diagnosis Comments PROTIME Routine 06/29/2018 documented in this encounter Results * PROTIME (06/29/2018) INR, External 1.99 [facility] Blood specimen (specimen) 06/29/2018 Historical Provider HEMATOLOGY & PF4 ORDERABLES [facility] documented in this encounter Visit Diagnoses Not on filedocumented in this encounter Care Teams Communication Signals Intelligence Relationship Specialty Start Date End Date Shelby Li, SILVIA [address] [place] [address] PCP - General 02/06/18 documented as of this encounter
--- OUTSIDE RECORDS SUMMARY | 2023-10-25 10:46 | XMS_ITS | Encounter Summary ---
Author Organization [facility] Address [address] [place] [address] Care Team Providers Care Can Labeler Name Role Phone Shelby Li SILVIA Primary Care Provider + Encounter Details Date Type Department Care Team (Late st Contact Info) Description 03/12/2018 Phlebotomy Only [address] [address] Tax Preparer, Outpatient Cerebral venous thrombosis (Primary Dx) Social [...] Procedure Name Priority Date/Time Associated Diagnosis Comments HEPARIN LEVEL - LOW MOLECULAR WEIGHT HEPARIN Routine 03/12/2018 12:39 EST Cerebral venous thrombosis COMPLETE BLOOD COUNT AND DIFFERENTIAL Routine 03/12/2018 12:39 EST Cerebral venous thrombosis BASIC METABOLIC PANEL (BMP) Routine 03/12/2018 12:39 EST Cerebral venous thrombosis documented in this encounter Results * HEPARIN LEVEL - LOW MOLECULAR WEIGHT HEPARIN (03/12/2018 12:39 EST) Heparin Level - LMWH 0.92 IU/mL 03/03 14:[address] [facility] Comment: THERAPEUTIC HEPARIN RANGE (for twice-a-day dosing, peak sample drawn 4 hours post subcutaneous injection) for treatment of venous thromboembolism: ? Adults and children: ? 0.5 - 1.1 IU/mL ? [place]: ? 0.5 - 1.0 IU/mL THERAPEUTIC HEPARIN [...] Casas MD HEMATOLOGY & PF4 ORD ERABLES [facility] [address] [place] [address] * COMPLETE BLOOD COUNT AND DIFFERENTIAL (03/12/2018 12:39 [facility]) WBC 8.23 4.0 - 12.4 K/cmm 03/12/2018 13:17 [facility] RBC 4.46 3.86 - 5.04 M/cmm 03/12/2018 13:17 [facility] Hemoglobin 13.3 11.6 - 15.2 gm/dl 03/12/2018 13:17 [facility] HCT 39.0 34.9 - 44.4 % 03/12/2018 13:17 [facility] MCV 87 81 - 98 fl 03/12/2018 13:17 [facility] MCH 29.8 26.7 - 33.3 pg 03/12/2018 13:17 [facility] MCHC 34.1 32.1 - 35.9 gm/dl 03/12/2018 13:17 [facility] RDW-CV 13.1 <14.7 % 03/12/2018 13:17 [facility] RDW-SD 42.2 <50.4 fl 03/12/2018 13:17 [facility] PLT 244 141 - 377 K/cmm 03/12/2018 13:17 [facility] MPV 10.2 9.5 - 12.7 fl 03/12/2018 13:17 [facility] % Neutrophils 51.1 % 03/12/2018 13:17 [facility] % Lymphocytes 38.3 % 03/12/2018 13:17 [facility] % Monocytes 7.8 % 03/12/2018 13:17 [facility] % Eosinophils 2.2 % 03/12/2018 13:17 [facility] % Basophils 0.4 % 03/12/2018 13:17 [facility] % Immature Grans 0.2 % 03/12/2018 13:17 [facility] ABS Neutrophils 4.21 2.20 - 8.85 K/cmm 03/12/2018 13:17 [facility] ABS Lymphs 3.15 1.09 - 3.30 K/cmm 03/12/2018 13:17 [facility] ABS Monocytes 0.64 0.1 - 0.8 K/cmm 03/12/2018 13:17 [facility] ABS Eosinophils 0.18 0.03 - 0.61 K/cmm 03/12/2018 13:17 [facility] ABS Basophils 0.03 0.01 - 0.11 K/cmm 03/12/2018 13:17 [facility] ABS Immature Grans 0.02 0 - 0.06 K/cmm 03/12/2018 13:17 [facility] Type of Diff: Automated 03/12/2018 13:17 [facility] Blood specimen (specimen) BLOOD SPECIMEN / Unknown 03/12/2018 12:39 EST 03/12/2018 12:58 EST Theodore Casas MD PACKAGES & DNA PROBE ORDERABLES Performing Organization Address City/State/[facility] Co de Phone Number [facility] [address] [place] [address] * BASIC METABOLIC PANEL (BMP) (03/12/2018 12:39 EST) Sodium 140 136 - 145 mEq/L 03/12/2018 13:42 [facility] Potassium 4.3 3.5 - 5.0 mEq/L 03/12/2018 13:42 [facility] Chloride 105 96 - 110 mEq/L 03/12/2018 13:42 [facility] CO2 24 22 - 32 mEq/L 03/12/2018 13:42 [facility] BUN 16 10 - 26 mg/dl 03/12/2018 13:42 [facility] Creatinine 0.68 0.52 - 1.04 mg/dl 03/12/2018 13:42 [facility] GFR, Calculated 121 >60 ml/min/1.7 3m2 03/12/2018 13:42 [facility] Comment: eGFR calculated using CKD-EPI equation for non Americans. Multiply eGFR by 1.16 for Americans. Calcium 9.1 8.5 - 10.5 mg/dl 03/12/2018 13:[address] [facility] Calculated Calcium 8.8 8.5 - 10.5 mg/dl 03/12/2018 13:[address] [facility] Glucose, Serum 95 70 - 100 mg/dl 03/12/2018 13:[address] [facility] Fasting? No 03/12/2018 12:[address] [facility] Blood specimen (specimen) BLOOD SPECIMEN / Unknown 03/12/2018 12:39 EST 03/12/2018 12:58 EST Theodore Casas MD CHEMISTRY & BLOOD GA S ORDERABLES [facility] [address] [place] [address] documented in this encounter Visit Diagnoses Diagnosis Cerebral venous thrombosis- Primary Cerebral thrombosis without mention of cerebral infarction documented in this encounter Care Teams Can Labeler Relationship Specialty Start Date End Date Shelby Li, BRINEYARD SUPERVISOR [address] [place] [phone] PCP - General 02/06/18 documented as of this encounter
--- OUTSIDE RECORDS SUMMARY | 2023-10-25 10:46 | XMS_ITS | Encounter Summary ---
Author Organization [facility] Address [address] [place] [address] Care Team Providers Care Inside Sales Name Role Phone Shelby Li SILVIA Primary Care Provider + Reason for Visit * Reason Onset Date Comments Referral Request 04/30/2018 Encounter Details Date Type Department Care Team (Late st Contact Info) Description 04/30/2018 Telephone [facility] Cancer Center Hematology & Oncology - [address] [address] Eleazar Ahumada LICSW Referral Request Social History Tobacco Use Types Packs/Day Years [...] encounter Miscellaneous Notes * Telephone Encounter - Eleazar Ahumada MSW - 04/30/2018 1507 EST Images from the original note were not included. CASH DINERO Note: Reason for Call: QUENCHER OPERATOR called the pt to assess for possible assistance programs to help her w/ the co-pay for Lovenox.Pt explained that she was kicked off of Medicaid once she had her child and went back to work. She has not had to pay out of pocket for Lovenox yet but she's aware how costly it usually is. She will have insurance coverage through [employer] 05/04/18. She is a single mother of two and depending on what her co-pay is it could set her family back financially. QUENCHER OPERATOR searched for co-pay assistance programs. [employer] has a free drug program but they do not provide assistance for those who have a insurance plan.Therefore this handbook writer offered to apply her for [facility]. We completed the intake over the phone together. Pt asked for co-pay assistance and for gift of sight. She currently uses a piece of dental floss to hold her glasses together. QUENCHER OPERATOR is mailing the pt the participation agreement form. She is going to bring this signed along w/ her pay stub when she comes for her f/u visit w/ Dr. Casas on 05/21. Pt Centered Identified Goal: HAP: Co-pay assistance for Lovenox Gift of Sight Plan: Yassine from [facility] responded after this handbook writer sent the referral stating,[facility] can assist with her Lovenox needs. If you and Shira can coordinate getting the Rx to one of the [facility] pharmacies, I will share the payment information with the pharmacy. We can also assist with glasses, but we typically do soonce we receive income documentation. I will also discuss with her the possibility of having her exam done through her insurance after 05/04/2018, and our program covering the glasses. If an exam won???t be covered for her, we can assist with that part too. This handbook writer sent the pt the participation agreement. QUENCHER OPERATOR will f/u with the pt on the to gatherthe income verification and participation agreement. Eleazar Ahumada MSW documented in this encounter Plan of Treatment Not on file documented as of this encounter Visit Diagnoses Not on filedocumented in this encounter Care Teams Inside Sales Relationship Specialty Start Date End Date Shelby Li, SILVIA [address] [place] [phone] PCP - General 02/06/18 documented as of this encounter
--- OUTSIDE RECORDS SUMMARY | 2023-10-25 10:46 | XMS_ITS | Encounter Summary ---
Author Organization [facility] Address [address] [place] [address] Care Team Providers Care Industrial Engineering Intern Name Role Phone Shelby Li SILVIA Primary Care Provider + Reason for Visit * Reason Onset Date Comments Medical Records 02/17/2021 Encounter Details Date Type Department Care Team (Late st Contact Info) Description 02/17/2021 Telephone [facility] Neurology - [address] [id number] Ciara Arrieta MD [address] [place] [address] [address] [place] [address] Medical Records Social History Tobacco Use Types Packs/Day Years [...] encounter Miscellaneous Notes * Telephone Encounter - Victor M Craig MA - 02/17/2021 1451 EST Received fax from [facility] ED in regards to patients recent visit to ED for Migraine. Dr. Arrieta is listed as part of the care team and Dr. Velez last saw the patient in 2019. Leaving notes in 's inbox, notes are also in patients medical record. 02/17/2021 documented in this encounter Plan of Treatment Not on file documented as of this encounter Visit Diagnoses Not on filedocumented in this encounter Care Teams Industrial Engineering Intern Relationship Specialty Start Date End Date Shelby Li APRN [address] [place] [phone] PCP - General 02/06/18 documented as of this encounter
--- OUTSIDE RECORDS SUMMARY | 2023-10-25 10:46 | XMS_ITS | Encounter Summary ---
Author Organization [facility] Address [address] [place] [address] Care Team Providers Care Wood Casket Assembler Name Role Phone Shelby Li SILVIA Primary Care Provider + Encounter Details Date Type Department Care Team (Latest Contact Info) Description 02/16/2021 Travel Social History Tobacco Use Types Packs/Day Years [...] on filedocumented in this encounter Care Teams Wood Casket Assembler Relationship Specialty Start Date End Date Shelby Li, REINFORCER [address] [place] [address] PCP - General 02/06/18 documented as of this encounter
--- OUTSIDE RECORDS SUMMARY | 2023-10-25 10:46 | XMS_ITS | Encounter Summary ---
Author Organization [facility] Address [address] [place] [address] Care Team Providers Care Professional Driver Name Role Phone Shelby Li SILVIA Primary Care Provider + Reason for Visit * Reason Onset Date Comments Critical Value 06/07/2018 Encounter Details Date Type Department Care Team (Late st Contact Info) Description 06/07/[address] [facility] Cancer Center Hematology & Oncology - [address] [address] Theodore Casas MD [address] [place] [address], [facility] 2 [place] [address] Critical Value Social History Tobacco Use Types Packs/Day Years [...] encounter Miscellaneous Notes * Telephone Encounter - Priscilla Urrutia - 06/07/2018 0836 EST Non Clinical Staff notified with Critical Results Ordering Provider: Yessenia Date and Time Test was Performed: 06/07/18 Results: PT 36.5, INR 3.84 Result Read Back and Verified: yes Nursing/Provider Notified: Y Nursing/Provider Name: Dominique Date: 06/07/18 Time: 8:41 AM Priscilla Urrutia 06/07/2018 8:41 documented in this encounter Plan of Treatment Not on file documented as of this encounter Visit Diagnoses Not on filedocumented in this encounter Care Teams Professional Driver Relationship Specialty Start Date End Date Shelby Li, SHIP SCALER [address] [place] [phone] PCP - General 02/06/18 documented as of this encounter
--- OUTSIDE RECORDS SUMMARY | 2023-10-25 10:46 | XMS_ITS | Encounter Summary ---
Author Organization [facility] Address [address] [place] [address] Care Team Providers Care Car Servicer Name Role Phone hSelby Li SILVIA Primary Care Provider + Encounter Details Date Type Department Care Team (Late st Contact Info) Description 07/05/2018 Anti-coag visit [facility] Hematology & Oncology - [facility] [address] [place] [address] Shira Lombardi, RN [address] [place] [address] Social History Tobacco Use Types Packs/Day Years [...] Progress Notes * Shira Lombardi, RN - 07/05/2018 1301 EDT Pt to remain on 5mg warfarin daily, avoid missed doses, INR in one week documented in this encounter Plan of Treatment Not on file documented as of this encounter Procedures Procedure Name Priority Date/Time Associated Diagnosis Comments PROTIME Routine 07/05/2018 documented in this encounter Results * PROTIME (07/05/2018) INR, External 1.90 [facility] Blood specimen (specimen) 07/05/2018 Historical Provider HEMATOLOGY & PF4 ORDERABLES [facility] documented in this encounter Visit Diagnoses Not on filedocumented in this encounter Care Teams Car Servicer Relationship Specialty Start Date End Date Shelby Li APRN [address] [place] [phone] PCP - General 02/06/18 documented as of this encounter
--- OUTSIDE RECORDS SUMMARY | 2023-10-25 10:46 | XMS_ITS | Encounter Summary ---
Author Organization [facility] Address [address] [place] [address] Care Team Providers Care Marine Resource Economist Name Role Phone Shelby Li SILVIA Primary Care Provider + Encounter Details Date Type Department Care Team (Late st Contact Info) Description 06/22/2018 Documentation Visit [facility] Center Hematology & Oncology - [facility] [address] [place] [address] Dominique Fajardo, RN [address] [place] [address] Social History Tobacco Use Types Packs/Day Years [...] as of this encounter Progress Notes * Dominique Fajardo, RN - 06/22/2018 1142 EDT INR 1.64. Pt instructed to increase warfarin to 5mg daily and recheck INR in 7- 10 days. documented in this encounter Plan of Treatment Not on file documented as of this encounter Visit Diagnoses Not on filedocumented in this encounter Care Teams Marine Resource Economist Relationship Specialty Start Date End Date Shelby Li APRN [address] [place] [address] PCP - General 02/06/18 documented as of this encounter
--- OUTSIDE RECORDS SUMMARY | 2023-10-25 10:46 | XMS_ITS | Encounter Summary ---
Author Organization [facility] Address [address] [place] [address] Care Team Providers Care Men'S Basketball Coach Name Role Phone Shelby Li SILVIA Primary Care Provider + Encounter Details Date Type Department Care Team (Late st Contact Info) Description 06/26/[address] [facility] Results [address] [place] [address] Myra Wyatt MD [address] [facility] [address] [place] [address] Social History Tobacco Use Types Packs/Day Years [...] Procedure Name Priority Date/Time Associated Diagnosis Comments US PELVIS TRANSVAGINAL COMPLETE 06/26/2018 16:43 EDT documented in this encounter Results * US PELVIS TRANSVAGINAL (06/26/2018 16:43 EDT) Anatomical Region Laterality Modality Pelvis Other 06/26/2018 16:4 3 EDT Narrative 06/26/2018 16:46 EDT ? EXAM: ULTRASOUND/TRANSVAGINAL - ROUTING CLERK ? EX. D/ (1520) ? CLINICAL INFORMATION: ? N93.9 ABNORMAL UTERINE BLEEDING ? INDICATION: N93.9 ABNORMAL UTERINE BLEEDING. ? COMPARISON: None. ? TECHNIQUE: Endovaginal ultrasound of the pelvis was performed. Color ? Doppler imaging was also utilized. ? FINDINGS: ? The uterus measures 7.8 cm x 4.6 cm x 4.2 cm. The endometrial stripe ? measures 12.3 mm. There is an echogenic IUD within the endometrial ? cavity of the lower uterine segment. The uterus is retroverted. No ? intramural mass. ? The right ovary measures 2.9 cm x 2.1 cm x 1.7 cm. The right ovary ? has a normal appearance containing multiple follicles. The largest ? right ovarian measures 1.2 cm. ? The left ovary measures 3.9 cm x 1.6 cm x 1.9 cm. The left ovary has ? a normal appearance containing multiple follicles. The largest left ? ovarian follicle measures 1.0 cm. ? There is a tiny amount of free intraperitoneal fluid within the ? posterior cul-de-sac. No adnexal mass is identified. ? IMPRESSION: ? 1. IUD present within the endometrial cavity of the lower uterine ? segment. ? 2. Tiny free peritoneal fluid, likely physiologic. ? REPORT SIGNED IN OTHER VENDOR SYSTEM 06/26/2018 ?Reported By: Nate Morales MD ? CC: ? Transcribed Date/Time: 06/26/2018 (1646) ? Glass Technologist: SCR ? Printed Date/Time: 09/24/2018 (0019) ? PAGE 1 ? Signed Report ? Procedure Note Nate Morales MD - 02/07/2019 EXAM: ULTRASOUND/TRANSVAGINAL - ROUTING CLERK EX. D/ (1520) CLINICAL INFORMATION: N93.9 ABNORMAL UTERINE BLEEDING INDICATION: N93.9 ABNORMAL UTERINE BLEEDING. COMPARISON: None. TECHNIQUE: Endovaginal ultrasound of the pelvis was performed.Color Doppler imaging was also utilized. FINDINGS: The uterus measures 7.8 cm x 4.6 cm x 4.2 cm. The endometrialstripe measures 12.3 mm. There is an echogenic IUD within the endometrial cavity of the lower uterine segment. The uterus is retroverted. No intramural mass. The right ovary measures 2.9 cm x 2.1 cm x 1.7 cm. The right ovary has a normal appearance containing multiple follicles. The largest right ovarian measures 1.2 cm. The left ovary measures 3.9 cm x 1.6 cm x 1.9 cm. The left ovaryhas a normal appearance containing multiple follicles. The largest left ovarian follicle measures 1.0 cm. There is a tiny amount of free intraperitoneal fluid within the posterior cul-de-sac. No adnexal mass is identified. IMPRESSION: 1. IUD present within the endometrial cavity of the lower uterine segment. 2. Tiny free peritoneal fluid, likely physiologic. REPORT SIGNED IN OTHER VENDOR SYSTEM 06/26/2018 Reported By: Nate Morales MD CC: Transcribed Date/Time: 06/26/2018 (1646) Glass Technologist: Printed Date/Time: 09/24/2018 (0019) PAGE 1 Signed Report Myra Wyatt MD IMG OB ORDERABLES documented in this encounter Visit Diagnoses Not on filedocumented in this encounter Care Teams Men'S Basketball Coach Relationship Specialty Start Date End Date Shelby Li, SILVIA [address] [place] [address] PCP - General 02/06/18 documented as of this encounter
--- OUTSIDE RECORDS SUMMARY | 2023-10-25 10:46 | XMS_ITS | Encounter Summary ---
Author Organization [facility] Address [address] [place] [address] Care Team Providers Care Cleaning Staff Supervisor Name Role Phone Shelby Li SILVIA Primary Care Provider + Reason for Visit * Reason Comments Numbness States Hx of blood clot in brain c/o left eye blurriness, blind spots, has resolved. Left finger to left hand numbness, fatigue and weakness, not feeling well Encounter Details Date Type Department Care Team (Late st Contact Info) Description 02/16/2021 11:00 EST - 02/16/2021 15:48 EST Emergency [facility] Emergency Department [address] [place] [address] Scar Streeter MD [address] [phone] Eleazar Amezquita MD [address] [place] [address] Migraine without status migrainosus, not intractable, unspecified migraine type (Primary Dx) Discharge Disposition: Home or Self Care Social [...] 10:19 EST documented as of this encounter Last Filed [...] Body Mass Index 29.44 02/16/2021 1018 EST documented in this encounter Functional Status [...] 05/21/2018 documented as of this encounter Discharge Instructions * Discharge Instructions* Scar Streeter MD - 02/16/2021 14:08 EST [facility] Emergency Department Discharge Instructions Diagnosis: Complex migraine Instructions: Continue taking ibuprofen, Tylenol, your migraine medication as prescribed. For pain / fever you can take: Ibuprofen (also known as advil or motrin) 400-600mg Acetaminophen (known as Tylenol) 650mg You can alternate these every 3 hours or take them together every 6 hours. Follow up: I have placed a referral to neurology in [place]. Please call their office to set up a follow-up appointment in the next 1 to 2 weeks Return Precautions: If you have significant worsening of your symptoms such as headache, visual changes, arm weakness or numbness please return to the emergency room for reevaluation documented in this encounter Medications at Time of Discharge Medication Sig Dispensed Refills Start Date End Date acetaminophen (TYLENOL ORAL) Take by mouth as needed. amLODIPine (NORVASC) 2.5 mg tablet Take 1 tablet by mouth daily. Add one tab every week until taking 10mg (4 tabs). 90 tablet 3 07/04/2018 BIOTIN ORAL Take by mouth daily. documented as of this encounter Discharge Disposition Disposition Code Departure Means Destination Home or Self Penitentiary documented in this encounter ED Notes * Scar Streeter MD - 02/16/2021 1220 EST Emergency Department Visit Chief Complaint Numbness (States Hx of blood clot in brain c/o left eye blurriness, blind spots, has resolved. Left finger to left hand numbness, fatigue and weakness, not feeling well) Assessment and ED Course Final diagnoses: Migraine without status migrainosus, not intractable, unspecified migraine type Disposition: Discharged HPI Bettina Mckeon is a 30 y.o. female who presents today with Numbness (States Hx of blood clot in brain c/o left eye blurriness, blind spots, has resolved. Left finger to left hand numbness, fatigueand weakness, not feeling well) HPI 30-year-old female with a previous history of cerebral venous thrombosis presents for evaluation of transient left-sided visual changes, left hand numbness. She states that she was in her kitchen, after standing up she noted a waviness to the vision out ofher left eye. This slowly resolved on its own but then she noted that she developed numbness in herleft fingers ascending up to the left palm. After roughly 10 to 20 minutes the symptoms resolved. She does endorse a slight migrainous right-sided headache which she said began yesterday. However, she has not had visual changes or arm symptoms with any previous migraines. States that the symptoms are similar to when she had a dural sinus thrombosis before. No longer anticoagulated. Does not take any medication. Has an IUD in place. Data reviewed this visit: Allergies: No Known Allergies Review of Systems Review of Systems Constitutional: Negative. Negative for chills and fever. HENT: Negative. Negative for congestion, sore throat and trouble swallowing. Eyes: Positive for visual disturbance. Respiratory: Negative. Negative for chest tightness and shortness of breath. Cardiovascular: Negative. Negative for chest pain, palpitations and leg swelling. Gastrointestinal: Negative. Negative for abdominal distention and abdominal pain. Endocrine: Negative. Genitourinary: Negative. Negative for dysuria and frequency. Musculoskeletal: Negative. Negative for arthralgias. Skin: Negative. Negative for rash. Allergic/Immunologic: Negative. Negative for immunocompromised state. Neurological: Positive for weakness and headaches. Negative for dizziness. Hematological: Negative. Negative for adenopathy. Does not bruise/bleed easily. Psychiatric/Behavioral: Negative. Negative for confusion. All other systems reviewed and are negative. - see HPI Physical Exam Vital Signs Temp: 36.6 ??C (97.9 ??F) Temp src: Temporal Pulse: 58 Heart Rate: 53 BPM Resp: 15 SpO2: 99 % BP: 98/60 BP MAP: 70 mm Hg BP Device: BP Machine BP Patient Position: Sitting BP Cuff Location: Left arm O2 Device: None (Room air) Body mass index is 29.44 kg/m??. A medical screening exam was performed. Physical Exam Constitutional: General: She is not in acute distress. Appearance: She is well-developed and well-nourished. HENT: Head: Normocephalic and atraumatic. Eyes: General: No scleral icterus. Extraocular Movements: EOM normal. Conjunctiva/sclera: Conjunctivae normal. Pupils: Pupils are equal, round, and reactive to light. Cardiovascular: Rate and Rhythm: Normal rate and regular rhythm. Pulses: Intact distal pulses. Heart sounds: Normal heart sounds. Pulmonary: Effort: Pulmonary effort is normal. No respiratory distress. Breath sounds: Normal breath sounds. No stridor. Abdominal: General: There is no distension. Palpations: Abdomen is soft. Tenderness: There is no abdominal tenderness. There is no guarding. Musculoskeletal: General: No tenderness. Normal range of motion. Cervical back: Normal range of motion and neck supple. Skin: General: Skin is warm and dry. Findings: No erythema. Neurological: Mental Status: She is alert and oriented to person, place, and time. Comments: The left pupil is roughly 1 mm smaller than the right pupil. Both pupils are round and reactive to light. Patient is awake and alert, talks in full sentences. Face is symmetric, equal sensation to light touch throughout the face. Extraocular movements intact. 5 out of 5 strength in the upper and lower extremities. No pronator drift. No dysmetria with rlmusc-no-dutw testing. Normal rfkw-rz-obld testing. Normal speech. Psychiatric: Mood and Affect: Mood and affect normal. Behavior: Behavior normal. Thought Content: Thought content normal. Results EKG orders: None Radiology orders: CT HEAD VENOGRAM W CONTRAST Imaging Reviewed. I have independently reviewed the images. There are no significant abnormalities Procedures Procedures MDM 30-year-old woman presents for evaluation of transient left hand numbness and visual changes out ofher left eye consistent with previous dural sinus thrombosis. On my exam the patient has no neurologic deficits. She does have a slight right- sided headache which she states is similar to her previous migraines. She does not appear to have any other clear provoking factors for thrombosis at this time but will repeat CT venogram to rule out recurrent dural sinus thrombosis. Differential includes complex migraine, focal seizure, venous thrombosis. Currently does not follow with neurology but was previously being seen by neurology in [place] who she would prefer to follow-up with. CBC CMP ordered as well to evaluate for any significant electrolyte derangements, hypoglycemia. On reevaluation after negative CT she reports slightly worsening headache. Metoclopramide and Benadryl IV ordered. Safe for discharge. Ambulatory referral to [place] [facility]. Return precautions discussed 02/16/2021 14:17 * Jameson Gregg RN - 02/16/2021 1016 EST States Hx of blood clot in brain c/o left eye blurriness, blind spots, has resolved. Left finger to left hand numbness, fatigue and weakness, not feeling well documented in this encounter Plan of Treatment Not on file documented as of this encounter Procedures Procedure Name Priority Date/Time Associated Diagnosis Comments CT HEAD VENOGRAM W CONTRAST STAT 02/16/2021 13:11 EST COMPLETE BLOOD COUNT AND DIFFERENTIAL STAT 02/16/2021 12:45 EST BASIC METABOLIC PANEL (BMP) STAT 02/16/2021 12:45 EST documented in this encounter Results * CT HEAD VENOGRAM W CONTRAST (02/16/2021 13:11 EST) Anatomical Region Laterality Modality Head Computed Tomogra phy 02/16/2021 13:5 3 EST Impressions 02/16/2021 13:53 EST 1. No acute intracranial abnormality. Note should be made that early acute stroke may not be visible by initial CT exam and if there are continued unexplained symptoms, further evaluation with MRI of the brain and MR venogram should be considered. 2. No dural sinus or cortical vein thrombosis identified. Narrative 02/16/2021 13:53 EST INDICATION: Recurrent visual changes and left arm numbness. Prior dural sinus thrombosis. COMPARISON: CT angiogram of the head 02/04/2018 and MRI venogram of the head 07/04/2018 from [facility]. TECHNIQUE: Precontrast and postcontrast enhanced CT scan of the brain was performed. CT venogram protocol was utilized following the IV administration of 100 mL of non-ionic Omnipaque 350. Axial images and 3-D reformations were reviewed. FINDINGS: The CSF spaces and brain parenchyma density are within normal limits. No intracranial hemorrhage or mass effect. No abnormal intra-axial or extra-axial fluid collections. The superior sagittal sinus, inferior sagittal sinus, straight sinus, transverse sinuses and sigmoid sinuses are patent. The right and left internal cerebral veins and the visualized cortical veins are opacified. The right and left internal jugular veins are patent. No dural sinus thrombosis is identified. The right and left internal carotid, anterior cerebral, middle cerebral, posterior cerebral, vertebral arteries and the basilar artery are widely patent. The visualized paranasal sinuses and mastoid air cells are well aerated. The calvarium is unremarkable. The visualized orbits and scalp soft tissues have normal appearances. Procedure Note Nate Morales MD - 02/16/2021 INDICATION: Recurrent visual changes and left arm numbness. Prior duralsinus thrombosis. COMPARISON: CT angiogram of the head 02/04/2018 and MRI venogram of thehead 07/04/2018 from [facility]. TECHNIQUE: Precontrast and postcontrast enhanced CT scan of the brain wasperformed. CT venogram protocol was utilized following the IVadministration of 100 mL of non-ionic Omnipaque 350. Axial images and 3-Dreformations were reviewed. FINDINGS: The CSF spaces and brain parenchyma density are within normal limits. Nointracranial hemorrhage or mass effect. No abnormal intra-axial orextra-axial fluid collections. The superior sagittal sinus, inferior sagittal sinus, straight sinus,transverse sinuses and sigmoid sinuses are patent. The right and leftinternal cerebral veins and the visualized cortical veins are opacified.The right and left internal jugular veins are patent. No dural sinusthrombosis is identified. The right and left internal carotid, anterior cerebral, middle cerebral,posterior cerebral, vertebral arteries and the basilar artery are widelypatent. The visualized paranasal sinuses and mastoid air cells are well aerated.The calvarium is unremarkable. The visualized orbits and scalp softtissues have normal appearances. IMPRESSION 1. No acute intracranial abnormality. Note should be made that early acutestroke may not be visible by initial CT exam and if there are continuedunexplained symptoms, further evaluation with MRI of the brain and MRvenogram should be considered. 2. No dural sinus or cortical vein thrombosis identified. Scar Streeter MD [facility] [place] * BASIC METABOLIC PANEL (BMP) (02/16/2021 12:45 EST) Sodium 140 136 - 145 mmol/L 02/16/2021 13:09 [facility] Potassium 4.4 3.5 - 5.0 mmol/L 02/16/2021 13:09 [facility] Chloride 103 96 - 110 mmol/L 02/16/2021 13:09 [facility] CO2 Total 26 22 - 32 mmol/L 02/16/2021 13:09 [facility] Anion Gap 11 8 - 16 02/16/2021 13:09 [facility] Glucose 82 70 - 100 mg/dL 02/16/2021 13:09 [facility] Calcium 8.8 8.5 - 10.5 mg/dL 02/16/2021 13:09 [facility] BUN 15 10 - 26 mg/dL 02/16/2021 13:09 [facility] Creatinine 0.62 0.52 - 1.04 mg/dL 02/16/2021 13:09 [facility] eGFR 122 >60 mL/min/1.73 m2 02/16/2021 13:09 [facility] Blood VENOUS BLOOD / Unknown Venipuncture / Unknown 02/16/2021 12:45 EST 02/16/2021 12:51 EST Scar Streeter MD CHEMISTRY & BLOOD GA S ORDERABLES Performing Organization Address City/State/[facility] Co de Phone Number [facility] [address] [place] [address] * COMPLETE BLOOD COUNT AND DIFFERENTIAL (02/16/2021 12:45 EST) WBC 9.29 4.00 - 12.40 K/cmm 02/16/2021 12:54 [facility] RBC 4.53 3.86 - 5.04 M/cmm 02/16/2021 12:54 [facility] Hemoglobin 13.9 11.6 - 15.2 gm/dL 02/16/2021 12:54 [facility] HCT 42.2 34.9 - 44.4 % 02/16/2021 12:54 [facility] MCV 93 81 - 98 fl 02/16/2021 12:54 [facility] MCH 30.7 26.7 - 33.3 pg 02/16/2021 12:54 [facility] MCHC 32.9 32.1 - 35.9 gm/dL 02/16/2021 12:54 [facility] RDW-CV 12.2 <14.7 % 02/16/2021 12:54 [facility] RDW-SD 42.3 <50.4 fl 02/16/2021 12:54 [facility] PLT 278 141 - 377 K/cmm 02/16/2021 12:54 [facility] MPV 9.9 9.5 - 12.7 fl 02/16/2021 12:54 [facility] % Neutrophils 64.1 % 02/16/2021 12:54 [facility] % Lymphocytes 27.0 % 02/16/2021 12:54 [facility] % Monocytes 6.7 % 02/16/2021 12:54 [facility] % Eosinophils 1.1 % 02/16/2021 12:54 [facility] % Basophils 0.8 % 02/16/2021 12:54 [facility] % Immature Grans 0.3 % 02/17/20 12:54 [facility] Absolute Neutrophils 5.96 2.20 - 8.85 K/cmm 02/16/2021 12:54 [facility] Absolute Lymphocytes 2.51 1.09 - 3.30 K/cmm 02/16/2021 12:54 [facility] Absolute Monocytes 0.62 0.10 - 0.80 K/cmm 02/16/2021 12:54 [facility] Absolute Eosinophils 0.10 0.03 - 0.61 K/cmm 02/16/2021 12:54 [facility] ABS Basophils 0.07 0.01 - 0.11 K/cmm 02/16/2021 12:54 [facility] Absolute Immature Grans 0.03 0.00 - 0.06 K/cmm 02/16/2021 12:54 [facility] Type of Differential: Auto 02/16/2021 12:54 [facility] Blood VENOUS BLOOD / Unknown Venipuncture / Unknown 02/16/2021 12:45 EST 02/16/2021 12:51 EST Scar Streeter MD PACKAGES & DNA PROBE ORDERABLES [facility] [address] [place] [address] documented in this encounter Visit Diagnoses Diagnosis Migraine without status migrainosus, not intractable, unspecified migraine type- Primary documented in this encounter Administered Medications Inactive Administered Medications - up to 3 most recent administrations Medication Order MAR Action Action Date Dose Rate Site acetaminophen (OFIRMEV) IV solution 1,000 mg 1,000 mg, intravenous, NOW X1, 1 dose, On Mon02/16/21 at 1245, Routine Given 02/16/2021 12:46 EST 1,000 mg diphenhydrAMINE (BENADRYL) injection 25 mg 25 mg, intravenous, NOW X1, 1 dose, On Mon02/16/21 at 1445, Routine Given 02/16/2021 14:21 EST 25 mg iohexoL (OMNIPAQUE 350) solution 100 mL 100 mL, intravenous, Once in imaging, 1 dose, Starting on Mon02/16/21 at 1255, Until Mon02/16/21 at 1311, Routine Given 02/16/2021 13:11 EST 100 mL metoclopramide (REGLAN) injection 10 mg 10 mg, intravenous, NOW X1, 1 dose, On Mon02/16/21 at 1445, Routine Given 02/16/2021 14:21 EST 10 mg documented in this encounter Active and Recently Administered Medications Times are shown in EST. Scheduled Medication Order 02/14/2021 02/15/2021 02/16/2021 acetaminophen (OFIRMEV) IV solution 1,000 mg (COMPLETED) 1,000 mg, intravenous, NOW X1, 1 dose, On Mon02/16/21 at 1245, Routine 1246 (Given - Provid er: Jameson Gregg RN)1301 (Completed - Provider: Hodan Leong RN) diphenhydrAMINE (BENADRYL) injection 25 mg (COMPLETED) 25 mg, intravenous, NOW X1, 1 dose, On Mon02/16/21 at 1445, Routine 1421 (Given - Provid er: Hodan Leong RN) iohexoL (OMNIPAQUE 350) solution 100 mL (COMPLETED) 100 mL, intravenous, Once in imaging, 1 dose, Starting on Mon02/16/21 at 1255, Until Mon02/16/21 at 1311, Routine 1311 (Given - Provid er: Narinder Hatfield) metoclopramide (REGLAN) injection 10 mg (COMPLETED) 10 mg, intravenous, NOW X1, 1 dose, On Mon02/16/21 at 1445, Routine 1421 (Given - Provid er: Hodan Leong RN) documented in this encounter Care Teams Cleaning Staff Supervisor Relationship Specialty Start Date End Date Shelby Li APRN [address] [place] [phone] PCP - General 02/06/18 documented as of this encounter
--- OUTSIDE RECORDS SUMMARY | 2023-10-25 10:46 | XMS_ITS | Encounter Summary ---
Author Organization [facility] Address [address] [place] [address] Care Team Providers Care Magnetic Prospector Name Role Phone Shelby Li SILVIA Primary Care Provider + Encounter Details Date Type Department Care Team (Late st Contact Info) Description 06/01/2018 Anti-coag visit [facility] Hematology & Oncology - [facility] [address] [place] [address] Dominique Fajardo, RN [address] [place] [address] Social History Tobacco Use Types Packs/Day Years [...] Progress Notes * Dominique Fajardo, RN - 06/01/2018 1122 EST INR 2.85. Pt asked to remain on 5mg warfarin daily and recheck INR in 1 week. documented in this encounter Plan of Treatment Not on file documented as of this encounter Procedures Procedure Name Priority Date/Time Associated Diagnosis Comments PROTIME Routine 05/31/2018 documented in this encounter Results * PROTIME (05/31/2018) INR, External 2.85 [facility] Blood specimen (specimen) Historical Provider HEMATOLOGY & PF4 ORDERABLES [facility] documented in this encounter Visit Diagnoses Not on filedocumented in this encounter Care Teams Magnetic Prospector Relationship Specialty Start Date End Date Shelby Li, SILVIA [address] [place] [id number] PCP - General 02/06/18 documented as of this encounter
--- OUTSIDE RECORDS SUMMARY | 2023-10-25 10:46 | XMS_ITS | Encounter Summary ---
Author Organization [facility] Address [address] [place] [address] Care Team Providers Care Family Day Carer Name Role Phone Shelby Li SILVIA Primary Care Provider + Reason for Visit * Reason Comments New Patient Visit Numbness * Consult (Other (Specify in Question)) - Closed Specialty Diagnoses / Procedures Referred By Jack salcido Referred To Contact Neurology Diagnoses Numbness Tylor Robertson MD [address] [place] [address], [address] [place] [address] Neurology 2c, Resident Referral ID Status Reason Start Date Expiration Date V isits Requested Visits Authorized [id number] Closed Specialty Services Required 02/12/2018 1 1 Encounter Details Date Type Department Care Team (Late st Contact Info) Description 07/04/2018 14:00 EDT Office Visit [facility] Adult Neurology - [address] [place] [address], [place] [address] Reinier Velez MD [address] [place] [phone] Cerebral venous thrombosis (Primary Dx); Chronic migraine without aura without status migrainosus, not intractable Social History Tobacco Use Types Packs/Day Years [...] Sign Reading Time Taken Comments Blood Pressure 114/70 07/04/2018 1431 EDT Pulse 78 07/04/2018 1431 EDT Temperature - - Respiratory Rate 17 07/04/2018 1431 EDT Oxygen Saturation 97% 07/04/2018 1431 EDT Inhaled Oxygen Concentration - - Weight 74.8 kg (165 lb) 07/04/2018 1431 EDT Height 160 cm (5' 3) 07/04/2018 1431 EDT Body Mass Index 29.23 07/04/2018 1431 EDT documented in this encounter [...] Dispensed Refills Start Date End Da te amLODIPine (NORVASC) 2.5 mg tablet Take 1 tablet by mouth daily. Add one tab every week until taking 10mg (4 tabs). 90 tablet 3 07/04/2018 documented in this encounter Progress Notes * Reinier Velez MD - 07/04/2018 1400 EDT Neurology Outpatient [facility] PATIENT NAME: Bettina Mckeon DATE OF SERVICE: 07/06/2018 ATTENDING PHYSICIAN: Meenakshi REFERRING PHYSICIAN: Guillermo Reason for Consult: Cortical Venous Thrombosis Chief Complaint: Headache History of Present Illness Bettina Mckeon is a 27 y.o. 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 She was previously admitted in Feb 2018 with headache and R arm numbness, and expressive aphasia. She was started on anticoagulation, but experienced intermittent R arm paresnthesias lasting seconds at home. She underwent an outpatient EEG with nofindings concerning for seizure. Since discharge in Feb 2018 she has seen Hematology who started her her on Warfarin. She recently followed up with Julia Montejo who noted resolution of her symptoms. Interval History Since her last visit she reports ongoing 2-3/10 which is daily and persistent. Rarely it gets worsewith no clear triggers but possibly stress and lack sleep. Her is still not sleeping through the night. Sometimes will have nausea. Headache feels like pressure over the whole head. She denies any visual aura. When pain is severe she will have photo and phonophobia. She takes tylenol for the current headache without relief. She cannot use NSAIDs while on blood thinners She does report having a history of migraine which comes with intense pressure, nausea, and photophobia. She denies any further episodes of tingling or speech difficulties She continues on Warfarin per hematology. She denies any family history of migraine. She does not drink alcohol. She does eat chocolate Previous work up Imaging: MR Venogram July 2018 - Read notes a interval decrease in previously seen venous cortical thrombosis Electrodiagnostics: EEG Feb 2018 Findings: 1. The waking cerebral background activity is characterized by a posterior dominant rhythm of 14 Hzthat is symmetric, synchronous and reactive to eye opening. Central 10 Hz activity is occasionally seen as well. 2. Hyperventilation is not performed because of recent cerebral vascular event. Photic stimulation is performed in the usual fashion. ?? 3. Drowsiness is recorded but no stage N2 sleep is attained. Impression: Normal EEG. Clinical Correlation: No seizures nor interictal epileptiform discharges were present to support the diagnosis of epilepsy. Absence of such discharges does not exclude the diagnosis of epilepsy. Review of systems Complete 10-point ROS performed with pertinent positives and negatives documented in HPI. Past Medical History Past Medical History: Diagnosis Date ??? Cerebral venous thrombosis of cortical vein 2017 Past Surgical History Past Surgical History: Procedure Laterality Date ??? TONSILLECTOMY age 11 Family History Family History Problem Relation Age of Onset ??? Crohn's Disease Mother ??? No Known Father ??? No Known Maternal Grandmother ??? Diabetes Maternal Grandfather ??? No Known Paternal Grandmother father adopted, don't know history ??? No Known Paternal Grandfather father adopted, don't know history ??? No Known Brother ??? No Known Son ??? No Known Daughter Social History Social History Tobacco Use ??? Smoking status: Never Smoker ??? Smokeless tobacco: Never Used Substance Use Topics ??? Alcohol use: No Allergies No Known Allergies Medications Current Outpatient Medications: acetaminophen (TYLENOL ORAL) amLODIPine (NORVASC) 2.5 mg tablet BIOTIN ORAL enoxaparin (LOVENOX) 80 mg/0.8 mL injection LORazepam (ATIVAN) 1 mg tablet warfarin (COUMADIN) 5 mg tablet No current facility-administered medications for this visit. Physical Examination BP 114/70 (BP Cuff Location: Left arm, Patient Position: Sitting, BP Cuff Sizes: Adult, regular) Pulse 78 Resp 17 Ht 160 cm (63) Wt 74.8 kg (165 lb) LMP 06/28/2018 (Approximate) SpO2 97% BMI 29.23 kg/m?? GENERAL EXAMINATION NAD. Sitting in chair comfortably. Palpable peripheral pulses. No respiratory distress. Breathing room air Soft, non tender abdomen. No rashes. NEUROLOGIC EXAM Mental Status and Language Alert and fully oriented Normal attention and comprehension No aphasia Cranial Nerves PERRLA Extra ocular movements intact with conjugate gaze Normal trigeminal sensation Face symmetric with full strength without dysarthria Palate elevates, SCM/trapezius full strength Motor Normal bulk and tone without abnormal movements Full strength in upper and lower extremities Sensation Intact to light and temperature throoughout No extinguishing to touch Reflexes 2+ upper and lower extremities No Babinski Cerebellar/gait FTN b/l intact without dysmetria Normal based gait and stride without ataxia Romberg's negative Assessment and Plan Bettina Mckeon is a 27 y.o. F with history of cortical venous thrombosis now on anticoagulation who previously experienced R sided paresthesias. Interval imaging finds improvement of the venous thrombosis without recannulization. Etiology of the thrombosis is unclear, but she may have been hypercoagulable in the peripartum period. Hematology continues to assist in determining length of therapy. Her current complaint is headache which has been persistent since her thrombus. Her current headache shares many features of her previous migraines. May be worth treating with migraine ppx to see if she benefits. She cannot use NSAIDs as an abortive until she completes anticoagulation therapy Plan - Anticoagulation per hematology - Recommended Magnesium and B2 supplementation - Will start Amlodipine for migraine ppx - Start at 2.5mg and increase by 2.5 per week until a goal of 10mg. If experiencing lightheadednessor side effects hold off increasing the dose for one week - Contingency for TCA such as nortryptaline when she is able to sleep through the night - When able, recommended she get 8 hours of sleep. Recommended daily exercise. Seen and Staffed with Dr. Meenakshi Velez Neurology PGY-2 * Ciara Arrieta MD, MD - 07/04/2018 1400 EDT Attestation statement: I saw and examined the patient with the resident/fellow. I agree with the findings and plan of care documented in the resident's/fellow's note. Patient was examined by me with resident on 07/04/18. documented in this encounter Plan of Treatment Not on file documented as of this encounter Visit Diagnoses Diagnosis Cerebral venous thrombosis- Primary Cerebral thrombosis without mention of cerebral infarction Chronic migraine without aura without status migrainosus, not intractable Chronic migraine without aura, without mention of intractable migraine without mention of status migrainosus documented in this encounter Historical Medications * This list may reflect changes made after this encounter. Medication Sig Dispensed Refills Start Date End Date BIOTIN ORAL Take by mouth daily. added in this encounter Care Teams Family Day Carer Relationship Specialty Start Date End Date Shelby Li, CUSTOMS DIRECTOR [address] [place] [phone] PCP - General 02/06/18 documented as of this encounter
--- OUTSIDE RECORDS SUMMARY | 2023-10-25 10:46 | XMS_ITS | Encounter Summary ---
Author Organization [facility] Address [address] [place] [address] Care Team Providers Care Documentation Billing Clerk Name Role Phone Shelby Li SILVIA Primary Care Provider + Reason for Visit * Reason Onset Date Comments Medications Refill 04/25/2018 Encounter Details Date Type Department Care Team (Late st Contact Info) Description 04/25/2018 Refill [facility] Cancer Center Hematology & Oncology - [facility] [address] [place] [address] Shira Lombardi, RN [address] [place] [address] Medications Refill Social History Tobacco Use Types [...] No 02/04/2018 documented as of this encounter Ordered Prescriptions Prescription Sig Dispensed Refills Start Date End Da te enoxaparin (LOVENOX) 80 mg/0.8 mL injection Inject 80 mg into the skin every 12 hours. 120 Syringe 04/25/2018 05/21/2018 documented in this encounter Miscellaneous Notes * Telephone Encounter - Shira Lombardi RN - 04/25/2018 3072 EST documented in this encounter Plan of Treatment Not on file documented as of this encounter Visit Diagnoses Not on filedocumented in this encounter Discontinued Medications Medication Sig Discontinue Reason Start Date End Da te enoxaparin (LOVENOX) 80 mg/0.8 mL injection Inject 80 mg into the skin every 12 hours for 90 days. Reorder 02/06/2018 04/25/2018 documented as of this encounter Care Teams Documentation Billing Clerk Relationship Specialty Start Date End Date Shelby Li APRN [address] [place] [id number] PCP - General 02/06/18 documented as of this encounter
--- OUTSIDE RECORDS SUMMARY | 2023-10-25 10:46 | XMS_ITS | Encounter Summary ---
Author Organization [facility] Address [address] [place] [address] Care Team Providers Care Drying Equipment Operator Name Role Phone Shelby Li SILVIA Primary Care Provider + Encounter Details Date Type Department Care Team (Late st Contact Info) Description 04/09/2021 Lab Requisition [facility] Pathology & Laboratory Medicine - [address] [address] Outr Resulting Lab, Provider Social History Tobacco Use Types Packs/Day Years [...] Procedure Name Priority Date/Time Associated Diagnosis Comments VITAMIN B12 Routine 04/09/2021 12:32 EST documented in this encounter Results * VITAMIN B12 (04/09/2021 12:32 EST) Vitamin B12 464 211 - 911 pg/mL 04/12/2021 9:47 EST [facility] Blood VENOUS BLOOD / Unknown 04/09/2021 12:32 EST 04/09/2021 21:51 EST Provider Outr Resulting Lab CHEMISTRY & BLOOD GAS ORDERABLES Performing Organization Address City/State/[facility] Co de Phone Number [facility] [address] [place] [address] documented in this encounter Visit Diagnoses Not on filedocumented in this encounter Care Teams Drying Equipment Operator Relationship Specialty Start Date End Date Shelby Li APRN [address] [place] [phone] PCP - General 02/06/18 documented as of this encounter
--- OUTSIDE RECORDS SUMMARY | 2023-10-25 10:46 | XMS_ITS | Encounter Summary ---
Author Organization [facility] Address [address] [place] [address] Care Team Providers Care Inspector Line Name Role Phone Shelby Li SILVIA Primary Care Provider + Encounter Details Date Type Department Care Team (Late st Contact Info) Description 05/29/2018 Anti-coag visit [facility] Cancer Center Hematology & Oncology - [facility] [address] [place] [address] Dominique Fajardo, RN [address] [place] [address] Social History Tobacco Use Types Packs/Day Years [...] Progress Notes * Dominique Fajardo, RN - 05/29/2018 1648 EST INR 2.99. Pt instructed to stop Lovenox, remain on 5mg daily of warfarin and recheck INR on . documented in this encounter Plan of Treatment Not on file documented as of this encounter Procedures Procedure Name Priority Date/Time Associated Diagnosis Comments PROTIME Routine 05/28/2018 documented in this encounter Results * PROTIME (05/28/2018) INR, External 2.99 [facility] Blood specimen (specimen) 05/28/2018 Historical Provider HEMATOLOGY & PF4 ORDERABLES [facility] documented in this encounter Visit Diagnoses Not on filedocumented in this encounter Care Teams Inspector Line Relationship Specialty Start Date End Date Shelby Li APRN [address] [place] [phone] PCP - General 02/06/18 documented as of this encounter
--- OUTSIDE RECORDS SUMMARY | 2023-10-25 10:47 | XMS_ITS | Encounter Summary ---
Author Organization [facility] Address [address] [place] [address] Care Team Providers Care Semiconductor Packages Leak Tester Name Role Phone Unknown, Provider Primary Care Provider [phone] Tj Carrillo MD Primary Care Provider Unav ailable Shelby Li APRN Primary Care Provider + Encounter Details Date Type Department Care Team (Late st Contact Info) Description 01/04/[address] [facility] Lab - Main [address] [address] Davey Nielsen MD Social History Tobacco Use Types Packs/Day Years Used Date Smoking Tobacco: Never Assessed Sex and Gender Information Value Date Recorded Sex Assigned at Not on file Gender Identity Female 02/16/2021 11:19 EST Sexual Orientation Not on file documented as of this encounter Plan of Treatment Not on file documented as of this encounter Procedures Procedure Name Priority Date/Time Associated Diagnosis Comments GROUP B STREP PCR Routine 01/04/2018 15: 58 EDT documented in this encounter Results * GROUP B STREP PCR (01/04/2018 15:58 EDT) Group B Strep PCR Group B Strep Not-Detect ed by PCR 01/05/2018 13:27 EDT [facility] Group B Strep PCR 01/05/2018 13:27 EDT [facility] Group B Strep PCR Not Done 01/05/2018 13:27 EDT [facility] 01/04/2018 15:5 8 EDT 01/04/2018 17:00 EDT Narrative [facility] - 01/05/2018 13:27 EDT Patient allergic to penicillin? No Davey Nielsen MD MICROBIOLOGY - GENER AL ORDERABLES [facility] documented in this encounter Visit Diagnoses Not on filedocumented in this encounter Care Teams Semiconductor Packages Leak Tester Relationship Specialty Start Date End Date Unknown, Provider, PCP - General 09/10/13 02/03/18 Tj Carrillo MD PCP - General 02/04/18 02/05/18 Shelby Li, FLUID JET CUTTER OPERATOR [address] [place] [phone] PCP - General 02/06/18 documented as of this encounter
--- OUTSIDE RECORDS SUMMARY | 2023-10-25 10:47 | XMS_ITS | Encounter Summary ---
Author Organization [facility] Address [address] [place] [address] Care Team Providers Care Procedure Writer Name Role Phone Unknown, Provider Primary Care Provider [phone] Tj Carrillo MD Primary Care Provider Unav ailable Shelby Li APRN Primary Care Provider + Encounter Details Date Type Department Care Team (Late st Contact Info) Description 07/06/[address] [facility] Radiology Results [address] [place], [place] [id number] Di Cobos, HUMAN RESOURCES PROJECT MANAGER [address] [place] [address], [address] [place] [address] Social History Tobacco Use Types Packs/Day Years Used Date Smoking Tobacco: Never Assessed Sex and Gender Information Value Date Recorded Sex Assigned at Not on file Gender Identity Female 02/16/2021 11:19 EST Sexual Orientation Not on file documented as of this encounter Plan of Treatment Not on file documented as of this encounter Procedures Procedure Name Priority Date/Time Associated Diagnosis Comments GC/CHLAMYDIA PCR - [facility] Routine 07/06/2017 14:36 EDT URINALYSIS/COMPLETE - [facility] Routine 07/06/2017 14:36 EDT DRUG SCREEN, PRESCRIPTION/OTC, URINE Routine 07/06/2017 14:36 EDT BACTERIAL CULTURE, URINE Routine 07/06/2017 14:36 EDT US OB FIRST TRIMESTER (LESS THAN 14 WEEKS) TRANSVAGINAL 07/06/2017 14:23 EDT documented in this encounter Results * BACTERIAL CULTURE, URINE (07/06/2017 14:36 EDT) Pathologist [facility] USUAL UROGENITAL MARLA - [facility] UUV 07/08/2017 9:59 EDT [facility] CitrateConcentration <10,000 CFU/ML 10/2017 9:59 EDT [facility] 07/06/2017 14:3 6 EDT 07/06/2017 15:51 EDT Comment:VOID Di Cobos NP MICROBIOLOGY - GENER AL ORDERABLES [facility] * GC/CHLAMYDIA PCR - [facility] (07/06/2017 14:36 EDT) Pathologist [facility] CHLAMYDIA PCR - [facility] NOT DETECTED 07/06/2017 18:26 EDT [facility] GONORRHEA PCR - [facility] NOT DETECTED 07/06/2017 18:26 EDT [facility] SOURCE CERVIX 07/06/2017 18:26 EDT [facility] 07/06/2017 14:3 6 EDT 07/06/2017 15:51 EDT Di Cobos NP CHEMISTRY & BLOOD GA S ORDERABLES [facility] * URINALYSIS/COMPLETE - [facility] (07/06/2017 14:36 EDT) Pathologist [facility] URINE APPEARANCE - [facility] Turbid CLEAR 07/06/2017 16:07 EDT [facility] URINE AMORPH CRYSTAL - [facility] MANY 07/06/2017 16:21 EDT [facility] URINE BACTERIA - [facility] NEG 07/06/2017 16:21 [facility] URINE BILIRUBIN - DIPSTICK - [facility] 1+ NEGATIVE 07/06/2017 16:07 [facility] Comment: Unable to confirm positive urine bilirubin. If clinical correlation is inconsistent, consider serum bilirubin. URINE BLOOD - [facility] Negative NEG 07/06/2017 16:07 [facility] URINE CALCIUM OXALATE CRYSTALS - [facility] RARE #/hpf 07/06/2017 16:21 [facility] URINE COLOR - [facility] Yellow YELLOW 07/06/2017 16:07 [facility] URINE GLUCOSE - DIPSTICK - [facility] Negative NEGATIVE 07/06/2017 16:07 [facility] URINE KETONE - [facility] Trace NEGATIVE 07/06/2017 16:07 [facility] URINE LEUK ESTERASE - [facility] Negative NEG 07/06/2017 16:07 [facility] URINE MUCUS - [facility] FEW 07/06/2017 16:21 [facility] URINE NITRITE - DIP[place] - [facility] Negative NEG 07/06/2017 16:07 [facility] URINE PH - [facility] 5.0 4.0 - 8.0 8 16:07 [facility] URINE PROTEIN - DIP[place] - [facility] Negative NEG 07/06/2017 16:07 [facility] URINE RBC - [facility] NEG rbc/hpf 07/07/19 18 16:21 [facility] URCULTIF+? - [facility] Culture Ordered 07/06/2017 16:21 [facility] URINE SPECIFIC GRAVITY - [facility] >=1.030 1.001 - 1.035 07/06/2017 16:07 [facility] URINE SQUAMOUS CELLS - [facility] FEW NEG #/hpf 07/06/2017 16:21 [facility] URINE UROBILINOGEN - DIP[place] - [facility] 0.2 0.2 - 1.0 07/06/2017 16:07 [facility] URINE WBC - [facility] NEG NEG wbc/hpf 018 16:21 [facility] 07/06/2017 14:3 6 EDT 07/06/2017 15:51 EDT Di Cobos HUMAN RESOURCES PROJECT MANAGER CHEMISTRY & BLOOD GA S ORDERABLES [facility] * DRUG SCREEN, PRESCRIPTION/OTC, URINE (07/06/2017 14:36 EDT) AMPHETAMINES NEG NEG 07/06/2017 16:18 EDT [facility] BARBITURATES,UR - [facility] NEG NEG 07/06/2017 16:18 EDT [facility] BENZODIAZEPINES NEG NEG 16:18 EDT [facility] COCAINE,URINE - [facility] NEG [facility]G [facility]/2017 [facility] (METHAMPHET[facility]INES - [facility] NEG NEG 07/06/2017 [facility] MARIJUANA,[facility]INE - [facility] NEG NEG 07/06/2017 [facility] MTD (METHADONE[facility] - [facility] NEG NEG 07/06/2017 [facility] OPIATES,[facility]INE - [facility] NEG NEG 08/2017 16:18 [facility] OXY (OXYCODONE) - [facility] NEG NEG 07/06/2017 16:18 [facility] PCP (PHENCYCLIDINE) - [facility] NEG NEG 07/06/2017 16:18 [facility] PROPOXYPHENE (PPX) - [facility] NEG NEG 07/06/2017 [facility] TRICYCLIC ANTIDEPRESSANTS - [facility] NEG NEG 07/06/2017 16:18 EDT [facility] Comment: Drug Class ?Cutoff Concentration Amphetamines (AMP) ?500 ng/ml Barbiturates (BAR) ?200 ng/ml Benzodiazepines (BZO) ? 150 ng/ml Cocaine (MAGALY) ? 150 ng/ml Methamphetamine (mAMP) ?500 ng/ml Methadone (MTD) ? 200 ng/ml Opiates (OPI) ? 100 ng/ml Oxycodone (OXY) ? 100 ng/ml Phencyclidine (PCP) ?25 ng/ml Tetrahydrocannabinol (THC) ? 50 ng/ml Propoxyphene (PPX) ?300 ng/ml Tricyclic antidepressants (TCA) ? 300 ng/ml This is a screening assay only, intended for use in clinical monitoring or management of patients. False positive or false negative results can occur. If confirmation testing is needed, please call the lab. Specimens are retained in the laboratory for 7 days. 07/06/2017 14:3 6 EDT 07/06/2017 15:51 EDT iD Cobos NP URINALYSIS ORDERABLE S [facility] * OB FIRST TRIMESTER (LESS THAN 14 WEEKS) TRANSVAGINAL (07/06/2017 14:23 EDT) Anatomical Region Laterality Modality Pelvis Other 07/06/2017 14:2 3 EDT Narrative 07/07/2017 10:32 EDT ? EXAM: ULTRASOUND/TRANSVAGINAL - OB (LEVEL EX. D/ (1423) ? CLINICAL INFORMATION: ? Z33.1 [place] STATE INCIDENTAL ? DATING ? See attached report. ??Report also available in PACS. ? SNR:[email or web address] ?Reported By: Antony Walker MD ? CC: ? Transcribed Date/Time: 07/07/2017 (1032) ? Philosophy Instructor: CHERYL ? Printed Date/Time: 09/20/2018 (3706) ? PAGE 1 ? Signed Report ? Procedure Note Antony Walker MD - 02/06/2019 EXAM: ULTRASOUND/TRANSVAGINAL - OB (LEVEL EX. D/ (1423) CLINICAL INFORMATION: Z33.1 [place] INCIDENTAL DATING See attached report. Report also available in PACS. SNR:[email or web address] Reported By: Antony Walker MD CC: Transcribed Date/Time: 07/07/2017 (1032) Philosophy Instructor: CHERYL Printed Date/Time: 09/20/2018 (9672) PAGE 1 Signed Report Di Cobos HUMAN RESOURCES PROJECT MANAGER IMG OB ORDERABLES documented in this encounter Visit Diagnoses Not on filedocumented in this encounter Care Teams Procedure Writer Relationship Specialty Start Date End Date Unknown, Provider, PCP - General 09/10/13 02/03/18 Tj Carrillo MD PCP - General 02/04/18 02/05/18 Shelby Li APRN [address] [facility] [place] [phone] PCP - General 02/06/18 documented as of this encounter
--- OUTSIDE RECORDS SUMMARY | 2023-10-25 10:47 | XMS_ITS | Encounter Summary ---
Author Organization [facility] Address [address] [place] [address] Care Team Providers Care Farmer And Grazier Name Role Phone Unknown, Provider Primary Care Provider [phone] Encounter Details Date Type Department Care Team (Latest Contact Info) Description 01/26/2018 10:44 EDT - 01/26/2018 23:59 EDT Hospital Encounter [address] [address] Unknown, Provider, Discharge Disposition: Home or Self Care Social History Tobacco Use Types Packs/Day Years Used Date Smoking Tobacco: Never Assessed Sex and Gender Information Value Date Recorded Sex Assigned at Not on file Gender Identity Female 02/16/2021 11:19 EST Sexual Orientation Not on file documented as of this encounter Discharge Disposition Disposition Code Departure Means Destination Home or Self Fpc documented in this encounter Plan of Treatment Not on file documented as of this encounter Visit Diagnoses Not on filedocumented in this encounter Care Teams Farmer And Grazier Relationship Specialty Start Date End Date Unknown, Provider, PCP - General 09/10/13 02/03/18 documented as of this encounter
--- OUTSIDE RECORDS SUMMARY | 2023-10-25 10:47 | XMS_ITS | Encounter Summary ---
Author Organization [facility] Address [address] [place] [address] Care Team Providers Care Evaluation Analyst Name Role Phone Unknown, Provider Primary Care Provider [phone] Tj Carrillo MD Primary Care Provider Unav ailable Shelby Li APRN Primary Care Provider + Encounter Details Date Type Department Care Team (Late st Contact Info) Description 12/02/2015 Historical Results Only [facility] - Main [place] [address] [place] [phone] Davey Stone DO [address] [facility], [address] [place] [address] Social History Tobacco Use Types [...] Priority Date/Time Associated Diagnosis Comments PAP TEST Routine 12/02/2015 documented in this encounter Results * PAP TEST (12/02/2015) 12/02/2015 12/02/2015 17: 24 EDT Narrative [facility] - 12/10/2015 15:25 EDT ----- ------- Name: LEONELA MCKEON ?: [birth year] ?Age/Sex: 27/F ?Unit#: [id number] ? Loc: AGO ? Status: REG POV ?? Reg Date: 12/02/15 ? Pt.Phone Number: ? ----- ------- Specimen: [id number] ?STATUS: SOUT ?Spec Date:12/02/15 ? Physician Copies: ?Davey Stone DO Tissues: ? Cervical/Endo Pap ?Tj Carrillo ?? CPT: 30282 ?? Units: ??1 ----- ------- ? CYTOLOGY DIAGNOSIS SPECIMEN ADEQUACY: ?Satisfactory for evaluation. Transformation zone component present. GENERAL CATEGORIZATION: ?Negative for Intraepithelial Lesion or Malignancy DESCRIPTIVE DIAGNOSIS: ??Reactive cellular changes associated with inflammation present (includes typical repair). ??Shift in bess present suggestive of bacterial vaginosis. ----- ------- ORDER QUERIES: LMP: 11/25/15- WNL ? N Post ? N ??PREVIOUS ATYPICAL: N BCP/HRT? N Rad Rx? N IUD? N ??PAP PLUS HPV? N ??REFLEX TO HR-HPV IF ASCUS Y REFLEX TO HPV 16/18 IF HPV POS/PAP NEG N HPV REGARDLESS? N ??RFLX HPV IF LSIL ?? Signed ____(signature on file)____ Luiza Baron M.D. 12/10/15 By the signature above, the attending physician certifies that he/she has personally conducted a gross and/or microscopic examination of the described specimens and rendered or confirmed the above diagnosis. Test Performed by [facility], [address] [facility] [address] Computer Systems Auditor: Luiza Baron MD PHD ----- ------- Davey Stone DO PATHOLOGY ORDERABLES [facility] documented in this encounter Visit Diagnoses Not on filedocumented in this encounter Care Teams Evaluation Analyst Relationship Specialty Start Date End Date Unknown, Provider, PCP - General 09/10/13 02/03/18 Tj Carrillo MD PCP - General 02/04/18 02/05/18 Shelby Li, SILVIA [address] [place] [phone] PCP - General 02/06/18 documented as of this encounter
--- OUTSIDE RECORDS SUMMARY | 2023-10-25 10:47 | XMS_ITS | Encounter Summary ---
Author Organization [facility] Address [address] [place] [address] Care Team Providers Care Extension Specialist Name Role Phone Shelby Li SILVIA Primary Care Provider + Reason for Visit * Reason Onset Date Comments Numbness 02/07/2018 Encounter Details Date Type Department Care Team (Late st Contact Info) Description 02/07/2018 Telephone [facility] Adult Neurology - [address] [address] Reinier Velez MD [address] [place] [phone] Numbness Social History Tobacco Use Types Packs/Day Years [...] encounter Miscellaneous Notes * Telephone Encounter - Reinier Velez MD - 02/07/2018 0029 EST Received patient call at 12:30 on 02/07/18 Discharged yesterday 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 She woke up 30 minutes ago and developed Right face, arm and hand numbness. This lasted 2 minutes before resolving. This was in the same area of her previous symptoms. Denied any weakness. Sx have resolved now. Still has headache ever since having the epidural which is no worse and no better. Is taking lovenox without any issues. Discussed that symptom recurrence may be due to some irritation from the clot and bleed, but is reassuring that it resolved so fast. If symptoms persist, worsen, or spread she should be evaluated in the ED for extension of the bleed. She understood this and had no further questions. Reinier Velez Neurology PGY-2 Pager [phone] (7 nights and weekends) documented in this encounter Plan of Treatment Not on file documented as of this encounter Visit Diagnoses Not on filedocumented in this encounter Care Teams Extension Specialist Relationship Specialty Start Date End Date Shelby Li, MOTOR SCOOTER REPAIRER [address] [place] [phone] PCP - General 02/06/18 documented as of this encounter
--- OUTSIDE RECORDS SUMMARY | 2023-10-25 10:47 | XMS_ITS | Encounter Summary ---
Author Organization [facility] Address [address] [place] [address] Care Team Providers Care Freight Trucker Name Role Phone Unknown, Provider Primary Care Provider [phone] Tj Carrillo MD Primary Care Provider Unav ailable Shelby Li APRN Primary Care Provider + Encounter Details Date Type Department Care Team (Late st Contact Info) Description 09/13/2017 Historical Results Only [facility] Radiology Results [address] [place] [address] Myra Wyatt MD [address] [place] [address] [address] [place] [address] Social History Tobacco Use Types Packs/Day Years Used Date Smoking Tobacco: Never Assessed Sex and Gender Information Value Date Recorded Sex Assigned at Not on file Gender Identity Female 02/16/2021 11:19 EST Sexual Orientation Not on file documented as of this encounter Plan of Treatment Not on file documented as of this encounter Procedures Procedure Name Priority Date/Time Associated Diagnosis Comments US OB ROUTINE (GREATER THAN 14 WEEKS) 09/13/2017 13:22 EDT documented in this encounter Results * US OB ROUTINE (GREATER THAN 14 WEEKS) (09/13/2017 13:22 EDT) Anatomical Region Laterality Modality Pelvis Other 09/13/2017 13:2 2 EDT Narrative 09/14/2017 12:06 EDT ? EXAM: ULTRASOUND/OB-LEVEL 2 ? EX. D/ (1322) ? CLINICAL INFORMATION: ? Z3A.14 14 WEEKS GESTATION OF ? See attached report. ??Report also available in PACS. ? DCJ:[email or web address] ?Reported By: Eric Logan MD ? CC: ? Transcribed Date/Time: 09/14/2017 (1206) ? Historical Records Administrator: CHERYL ? Printed Date/Time: 09/21/2018 (2833) ? PAGE 1 ? Signed Report ? Procedure Note Eric Logan MD - 02/07/2019 EXAM: ULTRASOUND/OB-LEVEL 2 EX. D/ (1322) CLINICAL INFORMATION: Z3A.14 14 WEEKS GESTATION OF See attached report. Report also available in PACS. DCJ:[email or web address] Reported By: Eric Logan MD CC: Transcribed Date/Time: 09/14/2017 (1206) Historical Records Administrator: CHERYL Printed Date/Time: 09/21/2018 (3156) PAGE 1 Signed Report Myra Wyatt MD IMG US OB ORDERABLES documented in this encounter Visit Diagnoses Not on filedocumented in this encounter Care Teams Freight Trucker Relationship Specialty Start Date End Date Unknown, Provider, PCP - General 09/10/13 02/03/18 Tj Carrillo MD PCP - General 02/04/18 02/05/18 Shelby Li APRN [address] [facility] [place] [address] PCP - General 02/06/18 documented as of this encounter
--- OUTSIDE RECORDS SUMMARY | 2023-10-25 10:47 | XMS_ITS | Encounter Summary ---
Author Organization [facility] Address [address] [place] [address] Care Team Providers Care Patch Washer Name Role Phone Shelby Li SILVIA Primary Care Provider + Reason for Visit * Reason Onset Date Comments Appointment Related 03/01/2018 Encounter Details Date Type Department Care Team (Late st Contact Info) Description 03/01/2018 Telephone [facility] Adult Neurology - [address] [address] Reinier Velez MD [address] [place] [phone] Appointment Related Social History Tobacco Use [...] encounter Miscellaneous Notes * Telephone Encounter - Ramón Lindo - 04/18/2018 1058 EST Spoke with Bettina she is now scheduled on 07/04/18 @ 2:00pm with Dr. Velez * Telephone Encounter - Abril Mercado - 03/01/2018 1600 EST Reason for Call: Appointment Related Call Detail: I left a message for Bettina to call and schedule her NPV60 with Dr. Velez, as he hada long telephone interaction with the patient. Please assign referral once scheduled. Last visit: 02/26/18 EEG Next visit: 05/21/18 3:45pm Julia Mercado 03/01/2018 16:00 documented in this encounter Plan of Treatment Not on file documented as of this encounter Visit Diagnoses Not on filedocumented in this encounter Care Teams Patch Washer Relationship Specialty Start Date End Date Shelby Li APRN [address] [place] [phone] PCP - General 02/06/18 documented as of this encounter
--- OUTSIDE RECORDS SUMMARY | 2023-10-25 10:47 | XMS_ITS | Encounter Summary ---
Author Organization [facility] Address [address] [place] [address] Care Team Providers Care Track Manager Name Role Phone Shelby Li SILVIA Primary Care Provider + Reason for Referral * Consult (Other (Specify in Question)) - Closed Specialty Diagnoses / Procedures Referred By Jack salcido Referred To Contact Neurology Diagnoses Numbness Tylor Robertson MD [address] [place] [address] [address] [place] [address] Neurology 2c, Resident Referral ID Status Reason Start Date Expiration Date V isits Requested Visits Authorized [id number] Closed Specialty Services Required 02/12/2018 1 1 Question Answer Reason for Request: Pt with recurrent numbness from cortical vein thrombosis Scheduling Comments (optional ? describe specific scheduling needs if applicable): 1 month Reason for Visit * Reason Onset Date Comments Numbness 02/08/2018 Encounter Details Date Type Department Care Team (Late st Contact Info) Description 02/08/2018 Telephone [facility] Adult Neurology - [address] [phone] Gerardo Martinez MD [address] [place] [address], [place] [phone] Numbness Social History Tobacco Use Types [...] encounter Miscellaneous Notes * Telephone Encounter - Gerardo Martinez MD - 02/12/20181958 EST Spoke with Bettina to check in on her symptoms She reports having a few more episodes of R sided tingling/numbness now limited to a few fingertipsand her right check. She denies any motor involvement, no LOC or confusion and no spreading of symptoms to the contralateral side. She's had a couple episodes today and a few others scattered over the weekend. She also continues to have a headache which is unchanged from her admission. Discussed these could be small focal seizures vs localized irritation. Discussed with her obtainingan EEG to evaluate further. Her symptoms appear to be improving and affecting less of her right side than last week. Asked her to monitor for additional symptoms such as weakness, alterations in consciousness, or persistence and to contact us if symptoms worsen. Placed EEG order and re-ordered neuro follow up as one has not been scheduled when looking at her appointments. 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 Spoke with Dr. Robertson regarding plan. Gerardo Martinez Neurology PGY-2 Pager [phone] (46 nights and weekends) * Addendum Note - Gerardo Martinez MD - 02/12/20181956 ESTAddended by: GERARDO MARTINEZ on: 02/12/2018 19:57 Modules accepted: Orders * Telephone Encounter - Gerardo Martinez MD - 02/08/20182027 EST Bettina Mckeon called this evening due to recurrence of right sided numbness. Since 5 PM x3 episodes of right face, arm and leg numbness. Lasts minutes and resolves. Occurred laying down and when sitting up. Did not occur yesterday Headache is about the same Denies any associated weakness, LOC, confusion. Symptoms similar to what she experienced during her admission Explained this was likely localized irritation, but could get evaluated in the ED with repeat CT head if very concerned. Differential could also include small seizure, however from symptoms would be very focal and so far appears self limiting. More likely is localized irritation from previous bleed. Recommended that she could get an eval with head CT concerned or could continue to monitor sx at home. Asked her to watch for worsening symptoms, weakness, LOC, confusion or worsening headache and to call or be evaluated in the ED if these were to occur. Is to follow up with neurology Gerardo Martinez Neurology PGY-2 Pager [phone] (46 nights and weekends) documented in this encounter Plan of Treatment Scheduled Referrals Name Type Priority Associated Diagnoses Orde r Schedule AMB CONS/FOLLOW UP NEUROLOGY Outpatient Referral Routine Numbness Ordered: 02/12/2018 documented as of this encounter Visit Diagnoses Diagnosis Numbness- Primary Disturbance of skin sensation documented in this encounter Care Teams Track Manager Relationship Specialty Start Date End Date Shelby Li APRN [address] [facility] [phone] PCP - General 02/06/18 documented as of this encounter
--- OUTSIDE RECORDS SUMMARY | 2023-10-25 10:47 | XMS_ITS | Encounter Summary ---
Author Organization [facility] Address [address] [place] [address] Care Team Providers Care Medical Office Technology Instructor Name Role Phone Unknown, Provider Primary Care Provider Tj Carrillo MD Primary Care Provider Unav ailable Shelby Li APRN Primary Care Provider + Encounter Details Date Type Department Care Team (Late st Contact Info) Description 08/20/2013 Historical Results Only [facility] - [facility] Lab - Main [place] [address] [place] [address] [phone] Kathy Cruz MD [address] [place] [address], [address] [place] [phone] Social History Tobacco Use Types Packs/Day Years [...] Date/Time Associated Diagnosis Comments PAP TEST Routine 08/20/2013 10:07 EDT documented in this encounter Results * PAP TEST (08/20/2013 10:07 EDT) 08/20/2013 10:0 7 EDT 08/21/2013 10:[address] [facility] - 08/22/2013 13:48 EDT ----- ------- Name: LEONELA MCKEON ?: [birth year] ?Age/Sex: 28/F ?Unit#: [id number] ? Loc: AGO ? Status: REG POV ?? Reg Date: 08/20/13 ? Pt.Phone Number: ? ----- ------- Specimen: [id number] ?STATUS: SOUT ?Spec Date:08/20/13 ? Physician Copies: ?Kathy Cruz MD ?? Tissues: ? Cervical/Endo Pap ? CPT: 44204 ?? Units: ??1 ----- ------- ? CYTOLOGY DIAGNOSIS SPECIMEN ADEQUACY: ?Satisfactory for evaluation. Transformation zone component present. GENERAL CATEGORIZATION: ?Negative for Intraepithelial Lesion or Malignancy DESCRIPTIVE DIAGNOSIS: ?? Shift in bess present suggestive of bacterial vaginosis. ----- ------- ORDER QUERIES: LMP: 06/16/13- ? Y Post ? N ??PREVIOUS ATYPICAL: N BCP/HRT? N Rad Rx? N IUD? N ??PAP PLUS HPV? N ??REFLEX TO HR-HPV IF ASCUS Y REFLEX TO HPV 16/18 IF HPV POS/PAP NEG ?? HPV REGARDLESS?RFLX HPV IF LSIL ?? Signed Noelle Farris CT(ASCP) 08/22/13 By the signature above, the attending physician certifies that he/she has personally conducted a gross and/or microscopic examination of the described specimens and rendered or confirmed the above diagnosis. Test Performed by [facility] [place] [facility], [address] [place] [address] Maintenance Electrician: Luiza Baron MD PHD ----- ------- Kathy Cruz MD PATHOLOGY ORDERABLES Performing Organization Address City/State/[facility] Co de Phone Number [facility] documented in this encounter Visit Diagnoses Not on filedocumented in this encounter Care Teams Medical Office Technology Instructor Relationship Specialty Start Date End Date Unknown, Provider, PCP - General 09/10/13 02/03/18 Tj Carrillo MD PCP - General 02/04/18 02/05/18 Shelby Li, GAMMA OPERATOR [address] [place] [phone] PCP - General 02/06/18 documented as of this encounter
--- OUTSIDE RECORDS SUMMARY | 2023-10-25 10:47 | XMS_ITS | Encounter Summary ---
Author Organization [facility] Address [address] [place] [address] Care Team Providers Care Phone Manager Name Role Phone Unknown, Provider Primary Care Provider Tj Carrillo MD Primary Care Provider Unav ailable Shelby Li APRN Primary Care Provider + Encounter Details Date Type Department Care Team (Late st Contact Info) Description 08/02/2017 Historical Results Only [facility] Lab - Main [place] [address] [place] [address] [phone] Di Cobos, RAMON [address] [facility], [address] [place] [address] Social History Tobacco Use Types Packs/Day Years Used Date Smoking Tobacco: Never Assessed Sex and Gender Information Value Date Recorded Sex Assigned at Not on file Gender Identity Female 02/16/2021 11:19 EST Sexual Orientation Not on file documented as of this encounter Plan of Treatment Not on file documented as of this encounter Procedures Procedure Name Priority Date/Time Associated Diagnosis Comments HIV 1/2 AB, P24 AG - [facility] Routine 08/02/2017 14:50 EDT ONE HOUR PC - [facility] Routine 08/02/2017 14 :50 EDT COMPLETE BLOOD COUNT WITH DIFFERENTIAL (AUTO) Routine 08/02/2017 14:50 EDT RAPID PLASMA REAGIN (RPR) WITH REFLEX, S Routine 08/02/2017 14:50 EDT RUBELLA IGG ANTIBODY Routine 08/02/2017 14:50 EDT HEPATITIS B SURFACE ANTIGEN Routine 08/02/2017 14:50 EDT TYPE AND SCREEN Routine 08/02/2017 14:50 EDT VARICELLA IGG ANTIBODY Routine 08/02/2017 14:50 EDT documented in this encounter Results * (ABNORMAL) ONE HOUR PC - CV (08/02/2017 14:50 EDT) ONE HOUR PC - CV 81(L) 88 - 139 mg/dL 08/02/2017 17:05 EDT [facility] Comment: ACOG RECOMMENDED GUIDELINES Greater than or equal to ??140 mg/dL suspect gestational diabetes. ?? Recommend confirmation with 3 hr GTT 08/02/2017 14:5 0 EDT 08/02/2017 14:50 EDT [facility] [place] [facility] - 08/02/2017 17:05 EDT Does PT Have a Latex Allergy? NO Di Cobos USED BUILDING MATERIALS YARD WORKER CHEMISTRY & BLOOD GA S ORDERABLES [facility] * RUBELLA IGG ANTIBODY (08/02/2017 14:50 EDT) RUBELLA IGG ANTIBODY - CV Positive 08/02/2017 18:20 EDT [facility] Comment: Expected value: Positive The presence of Rubella IgG suggest immunity against rubella 08/02/2017 14:5 0 EDT 08/02/2017 14:50 EDT Narrative [facility] - 08/02/2017 18:20 EDT Does PT Have a Latex Allergy? NO Di Cobos USED BUILDING MATERIALS YARD WORKER CHEMISTRY & BLOOD GA S ORDERABLES [facility] * HEPATITIS B SURFACE ANTIGEN (08/02/2017 14:50 EDT) Hep B Surface Ag Negative 08/02/2017 17:37 EDT [facility] Comment:Expected Values: Neg ative. 08/02/2017 14:5 0 EDT 08/02/2017 14:51 EDT Narrative [facility] - 08/02/2017 17:37 EDT Does PT Have a Latex Allergy? NO Enter/Edit CPT and ICD codes? N Di Cobos NP CHEMISTRY & BLOOD GA S ORDERABLES Performing Organization Address [facility]/ZIP Co de Phone Number [facility] * VARICELLA IGG ANTIBODY (08/02/2017 14:50 EDT) Pathologist [facility] Varicella IgG Ab Positive Negative 08/03/2017 22:19 EDT [facility] Comment:Presumed immune to V aricella infection. 08/02/2017 14:5 0 EDT 08/02/2017 14:51 EDT [facility] [place] [facility] - 08/03/2017 22:19 EDT Does PT Have a Latex Allergy? NO Di Cobos NP IMMUNOLOGY AND SEROL OGY ORDERABLES [facility] * (ABNORMAL) COMPLETE BLOOD COUNT WITH DIFFERENTIAL (AUTO) (08/02/2017 14:50 EDT) ABSOLUTE NEUTROPHIL COUN - [facility] 7.57(H) 1.7 - 7.0 10e3/ul 08/02/2017 15:26 EDT [facility] BASO # - [facility] 0.02 0.0 - 0.3 10e3/uL 08/02/2017 15:26 EDT [facility] BASO % - [facility] 0 0 - 2 % 08/02/2017 15:26 EDT [facility] EOS # - [facility] 0.17 0.05 - 0.5 10e3/uL 08/02/2017 15:26 [facility] EOS % - [facility] 1 0 - 5 % 08/02/2017 15:26 [facility] GRAN % - [facility] 64 40 - 80 % 08/02/2017 15:26 [facility] HEMATOCRIT - [facility] 36.1 34.0 - 47.0 % 08/02/2017 15:26 [facility] HEMOGLOBIN - [facility] 12.0 11.2 - 15.7 g/dl 08/02/2017 15:26 [facility] IG# - [facility] 0.03 0 - 0.07 10e3/uL 08/02/2017 15:26 [facility] IG% - [facility] 0.3 0 - 0.9 % 08/02/2017 15:26 [facility] LYMPH # - [facility] 2.99(H) 0.9 - 2.9 10e3/uL 08/02/2017 15:26 [facility] LYMPH% - [facility] 25 20 - 40 % 08/02/2017 15:26 [facility] MEAN CORPUSCULAR HGB - [facility] 30.2 26 - 34 pg 08/02/2017 15:26 [facility] MEAN CORPUSCULAR HGB CONC - [facility] 33.2 31 - 36 g/dL 08/02/2017 15:26 [facility] MEAN CELL VOLUME - [facility] 90.9 77 - 100 fl 08/02/2017 15:26 [facility] MONO # - [facility] 1.01(H) 0.3 - 0.9 10e3/uL 08/02/2017 15:26 [facility] MONO% - [facility] 9 0 - 12 % 08/02/2017 15:26 [facility] PLATELET COUNT 241 150 - 400 10e3/ul 08/02/2017 15:26 [facility] RED BLOOD COUNT - [facility] 3.97 3.8 - 5.2 10e6/ul 08/02/2017 15:26 [facility] RED CELL DISTRI WIDTH - [facility] 12.4 11.8 - 15.6 % 08/02/2017 15:26 EDT [facility] WHITE BLOOD COUNT - [facility] 11.8(H) 3.5 - 10.5 10e3/ul 08/02/2017 15:26 EDT [facility] 08/02/2017 14:5 0 EDT 08/02/2017 14:51 EDT Narrative [facility] - 08/02/2017 15:26 EDT Does PT Have a Latex Allergy? NO Di Cobos NP HEMATOLOGY & PF4 ORD ERABLES [facility] * HIV 1/2 AB, P24 AG - [facility] (08/02/2017 14:50 EDT) HIV 1/2 AB, P24 AG - [facility] Negative NEGAT 08/03/2017 15:45 EDT [facility] Comment: ?? Fourth generation assay performed on the Siemens Sellerationaur. If acute HIV-1 infection is suspected in a high risk patient, submit plasma specimen for HIV-1 RNA quantification test. ?? The results of this assay can be falsely lowered due to the consumption of Biotin. Test Performed by: [place] [address] Supervisor Incising: Benito Mcmahan MD , Ph D 08/02/2017 14:5 0 EDT 08/02/2017 14:51 EDT [facility] [place] [facility] - 08/03/2017 15:45 EDT Does PT Have a Latex Allergy? NO Di Cobos NP CHEMISTRY & BLOOD GA S ORDERABLES [facility] * RAPID PLASMA REAGIN (RPR) WITH REFLEX, S (08/02/2017 14:50 EDT) APID PLASMA REAGIN - [facility] Nonreactive NEG 08/03/2017 11:32 EDT [facility] 08/02/2017 14:5 0 EDT 08/02/2017 14:51 EDT Narrative [facility] - 08/03/2017 11:32 EDT Does PT Have a Latex Allergy? NO Di Cobos USED BUILDING MATERIALS YARD WORKER IMMUNOLOGY AND SEROL OGY ORDERABLES [facility] * TYPE AND SCREEN (08/02/2017 14:50 EDT) Pathologist [facility] BLOOD TYPE - [facility] A Positive [facility] Antibody Screen NEGATIVE [facility] Specimen Expires: 08/05/17 @ 2359 [facility] 08/02/2017 14:5 0 EDT 08/02/2017 14:51 EDT Narrative [facility] - 08/02/2017 13:42 EDT Does PT Have a Latex Allergy? NO IS THIS A PREOPERATIVE PATIENT? N Di Cobos USED BUILDING MATERIALS YARD WORKER BLOOD BANK TESTS [facility] documented in this encounter Visit Diagnoses Not on filedocumented in this encounter Care Teams Phone Manager Relationship Specialty Start Date End Date Unknown, MD Surya PCP - General 09/10/13 02/03/18 Tj Carrillo MD PCP - General 02/04/18 02/05/18 Shelby Li APRN [address] [place] [phone] PCP - General 02/06/18 documented as of this encounter
--- OUTSIDE RECORDS SUMMARY | 2023-10-25 10:47 | XMS_ITS | Encounter Summary ---
Author Organization [facility] Address [address] [place] [address] Care Team Providers Care Grinding Machine Operator Portable Name Role Phone Shelby Li SILVIA Primary Care Provider + Reason for Visit * Reason Onset Date Comments Appointment Related 02/19/2018 Encounter Details Date Type Department Care Team (Late st Contact Info) Description 02/19/2018 Telephone [facility] Adult Neurology - [address] [address] Julia Montejo, RAMON [address] [place] [address] [address] [place] [address] Appointment Related Social History Tobacco Use Types [...] * Telephone Encounter - Abril Mercado - 02/19/2018 1114 EST Reason for Call: Appointment Related Call Detail: I spoke with Bettina, we scheduled her DFU30 with Julia Montejo. I sent a letter of confirmation. Last visit: 02/03/18 inpatient Next visit: 05/21/2018 3:45pm Julia Mercado 02/19/2018 11:14 documented in this encounter Plan of Treatment Not on file documented as of this encounter Visit Diagnoses Not on filedocumented in this encounter Care Teams Grinding Machine Operator Portable Relationship Specialty Start Date End Date Shelby Li APRN [address] [place] [phone] PCP - General 02/06/18 documented as of this encounter
--- OUTSIDE RECORDS SUMMARY | 2023-10-25 10:47 | XMS_ITS | Encounter Summary ---
Author Organization [facility] Address [address] [place] [address] Care Team Providers Care Business Banking Sales Assistant Name Role Phone Shelby Li SILVIA Primary Care Provider + Reason for Visit * Office Procedure (Routine) - Specialty Report Received Specialty Diagnoses / Procedures Referred By Jack salcido Referred To Contact Neurology Diagnoses Numbness Procedures EEG Tylor Robertson MD [address] [place] [address] [address] [place] [address] [facility] Neurophys [address] [place] [id number] Referral ID Status Reason Start Date Expiration Date V isits Requested Visits Authorized [id number] Specialty Report Received 02/12/2018 1 1 Encounter Details Date Type Department Care Team (Late st Contact Info) Description 02/26/2018 9:52 EST - 02/26/2018 23:59 EST Hospital Encounter [facility] Neurophysiology - [facility] [place] [address] [place], [place] [phone] Unknown, Provider, Thony Brown MD [address] [facility]. [address] [place] [phone] Seizure ([facility]) Discharge Disposition: Auto Discharge Social History Tobacco [...] as of this encounter Discharge Diagnoses Diagnosis R56.9 Unspecified convulsions-R56.9[ICD-10-CM] documented in this encounter Medications at Time of Discharge Medication Sig Dispensed Refills Start Date End Date enoxaparin (LOVENOX) 80 mg/0.8 mL injection Inject 80 mg into the skin every 12 hours for 90 days. 60 Syringe 2 02/06/2018 04/25/2018 documented as of this encounter Discharge Disposition Disposition Code Departure Means Destination Auto Discharge Home documented in this encounter Procedure Notes * Joe Brown MD PhD - 02/26/2018 1336 EST [facility] Name: Bettina Mckeon Clinical Neurophysiology Laboratory [address] : 1990 [place], [place] Date: 02/26/2018 Electroencephalogram Report Referring Physician: Tylor Robertson MD Study Number: [id number] Clinical Indication: A 27 yo with episodes of right sided numbness and tingling suspicious for seizures. Medications: See EPIC Technical Description: Standard EEG: An in-laboratory digital EEG is performed utilizing silver-silver chloride electrodesplaced according to the International 10-20 system of electrode placement. CPZ serves as the recording reference electrode. The following additional electrodes are also placed: ECG electrodes , anterior temporal electrodes The study begins at 1028 until 1058 with a total study duration of 30 minutes. During this study the following states were recorded: Wake Subject factors: Cooperative The patient and/or caregivers report:5 hours of sleep night before study; Estimated average Unknown(has a 4 week old) hours of sleep Previous EEG Study? No Findings: 1. The waking cerebral background activity is characterized by a posterior dominant rhythm of 14 Hzthat is symmetric, synchronous and reactive to eye opening. Central 10 Hz activity is occasionally seen as well. 2. Hyperventilation is not performed because of recent cerebral vascular event. Photic stimulation is performed in the usual fashion. 3. Drowsiness is recorded but no stage N2 sleep is attained. Impression: Normal EEG. Clinical Correlation: No seizures nor interictal epileptiform discharges were present to support the diagnosis of epilepsy. Absence of such discharges does not exclude the diagnosis of epilepsy. Butch Gannon MD PGY 5 CNL Fellow 02/26/2018 13:36 I have reviewed the study and made corrections as needed. Joe Brown MD, PhD ABPN Certified Neurology ABCN Certified Clinical Neurophysiology documented in this encounter Plan of Treatment Not on file documented as of this encounter Visit Diagnoses Diagnosis Seizure ([facility]) Other convulsions documented in this encounter Care Teams Business Banking Sales Assistant Relationship Specialty Start Date End Date Shelby Li APRN [address] [place] [phone] PCP - General 02/06/18 documented as of this encounter
--- OUTSIDE RECORDS SUMMARY | 2023-10-25 10:47 | XMS_ITS ---
Author Organization Unknown Address [address] [place] [phone] Phone Care Team Providers Care Reinforcer Name Role Phone RYAN CARLISLE Attending Unavailable RYAN CARLISLE Primary Unavailable [facility] Colle ct Date/Time: 12/16/2020 11:00 [facility] ID: [id number] - [id number] [address] [place] [address], [address] LOINC: 96431-5 Test Value Unit Reference Range Code Code System Flag SOURCE= Anterior nasal Tier- EXPOSURE SARS COV2 RNA: NEGATIVE REFERENCE RAN GE: NEGAT 35470-7 LOINC Social History Type Status Start Date End Date Code Code Syst em Smoking History Never smoker (Never Smoked) [id number] SNOMED CT Sex Female Medications Medication Start Date End Date Route Frequency Dose Code Code System Medication Instructions Home Meds LOVENOX 80MG/0.8ML INJECTION SOLUTI 05/28/2018 Unknown SUBCUTANEOUS EVERY 12 HOURS 80 MILLIGRAMS RxNorm INJECT 80 MILLIGRAMS SUBCUTANEOUS EVERY 12 HOURS MIRENA 52MG INTRAUTERINE INSERT, EX 05/28/2018 Unknown INTRAUTERINE DAILY 1 RxNorm 1 INTRAUTERINE DAILY SUMAtriptan Succinate 50MG Oral Tablet 05/28/2018 Unknown ORAL NEEDED 31 31 61 RxNorm TAKE 1-2 TABLET ORAL NEEDED Warfarin Sodium 5MG Oral Tablet 05/28/2018 Unknown ORAL DAILY 5 MILLIGRAMS 85 53 32 RxNorm TAKE 5 MILLIGRAMS ORAL DAILY Hospital Discharge Instructions Should you have any questions prior to discharge, please contact a member of your healthcare team. If you have left the hospital and have any questions, please contact your primary care physician. Reason For Referral No Data Found Allergies and Adverse Reactions Allergy Substance Reaction Severity Start Date Concern Status Co de Code System No Known Allergies Moderate Active [id number] SN OMED-CT Plan of Treatment Symptoms 12/16/2020 Symptoms 06/15/2020 Exposure 02/20/2020 SYMPTOMS 04/16/2021 SYMPTOMS 02/10/2021 SYMPTOMS 01/25/2021 Encounters Encounter Diagnosis Start Date Code Code Sys tem CONTACT WITH AND SUSPECTED EXPOSURE TO COVID-19 2020 SNOMED-CT Personal Care Team Section Performer Name Performer Role Active Date Inactive Da te
--- OUTSIDE RECORDS SUMMARY | 2023-10-25 10:47 | XMS_ITS | Encounter Summary ---
Author Organization [facility] Address [address] [place] [address] Care Team Providers Care Plumber Name Role Phone Unknown, Provider Primary Care Provider [phone] Encounter Details Date Type Department Care Team (Latest Contact Info) Description 04/01/2014 13:23 EST - 04/01/2014 23:59 EST Hospital Encounter [address] [address] Unknown, Provider, Discharge Disposition: Home or Self Care Social History Tobacco Use Types Packs/Day Years Used Date Smoking Tobacco: Never Assessed Sex and Gender Information Value Date Recorded Sex Assigned at Not on file Gender Identity Female 02/16/2021 11:19 EST Sexual Orientation Not on file documented as of this encounter Discharge Disposition Disposition Code Departure Means Destination Home or Self Shelter documented in this encounter Plan of Treatment Not on file documented as of this encounter Visit Diagnoses Not on filedocumented in this encounter Care Teams Plumber Relationship Specialty Start Date End Date Unknown, Provider, PCP - General 09/10/13 02/03/18 documented as of this encounter
--- OUTSIDE RECORDS SUMMARY | 2023-10-25 10:47 | XMS_ITS | Encounter Summary ---
Author Organization [facility] Address [address] [place] [address] Care Team Providers Care Print Line Supervisor Name Role Phone Unavailable Primary Care Provider Unavailabl e Encounter Details Date Type Department Care Team (Latest Contact Info) Description 08/20/2013 9:42 EDT - 08/20/2013 23:59 EDT Hospital Encounter [address] [address] Unknown, Provider, Discharge Disposition: Home or Self Care Social History Tobacco Use Types Packs/Day Years Used Date Smoking Tobacco: Never Assessed Sex and Gender Information Value Date Recorded Sex Assigned at Not on file Gender Identity Female 02/16/2021 11:19 EST Sexual Orientation Not on file documented as of this encounter Discharge Disposition Disposition Code Departure Means Destination Home or Self Nursing Home documented in this encounter Plan of Treatment Not on file documented as of this encounter Visit Diagnoses Not on filedocumented in this encounter
--- OUTSIDE RECORDS SUMMARY | 2023-10-25 10:47 | XMS_ITS | Encounter Summary ---
Author Organization [facility] Address [address] [place] [address] Care Team Providers Care Chief Informatics Officer Name Role Phone Unknown, Provider Primary Care Provider [phone] Tj Carrillo MD Primary Care Provider Unav ailable Shelby Li APRN Primary Care Provider + Encounter Details Date Type Department Care Team (Late st Contact Info) Description 11/09/2017 Historical Results Only [facility] Lab - Main [place] [address] [place] [phone] Codi Juan MD [address] [place] [address], [address] [place] [address] Social History Tobacco Use Types Packs/Day Years Used Date Smoking Tobacco: Never Assessed Sex and Gender Information Value Date Recorded Sex Assigned at Not on file Gender Identity Female 02/16/2021 11:19 EST Sexual Orientation Not on file documented as of this encounter Plan of Treatment Not on file documented as of this encounter Procedures Procedure Name Priority Date/Time Associated Diagnosis Comments ONE HOUR - [facility] Routine 11/09/2017 10 :45 EDT HEMOGLOBIN - CV Routine 11/09/2017 10: 45 EDT documented in this encounter Results * (ABNORMAL) ONE HOUR - [facility] (11/09/2017 10:45 EDT) [facility] ONE HOUR PC [facility] 75(L) 88 - 139 mg/dL 11/09/2017 12:10 EDT [facility] Comment: ACOG RECOMMENDED GUIDELINES Greater than or equal to ??140 mg/dL suspect gestational diabetes. ?? Recommend confirmation with 3 hr GTT 11/09/2017 10:4 5 EDT 11/09/2017 10:45 EDT Narrative [facility] - 11/09/2017 12:10 EDT Does PT Have a Latex Allergy? NO Codi Juan MD CHEMISTRY & BLOOD GA S ORDERABLES [facility] * [facility] (11/09/2017 10:45 EDT) [facility] 11.5 11.2 - 15.7 g/dl 11/09/2017 11:37 EDT [facility] 11/09/2017 10:4 5 EDT 11/09/2017 10:45 EDT [facility] - 11/09/2017 11:37 EDT Does PT Have a Latex Allergy? NO Codi Juan MD HEMATOLOGY & PF4 ORD ERABLES [facility] documented in this encounter Visit Diagnoses Not on filedocumented in this encounter Care Teams Chief Informatics Officer Relationship Specialty Start Date End Date Unknown, Provider, PCP - General 09/10/13 02/03/18 Tj Carrillo MD PCP - General 02/04/18 02/05/18 Shelby Li, ANALYST SALES [address] [place] [phone] PCP - General 02/06/18 documented as of this encounter
--- OUTSIDE RECORDS SUMMARY | 2023-10-25 10:47 | XMS_ITS ---
Author Organization Unknown Address [address] [place] [address] [phone] Phone Care Team Providers [facility] [place] [facility] Name Role Phone ALBERTINA LAUREN Attending Unavailable SHIRA Rodas Primary Unavailable Results SED RATE* - Collect Date/Scar e: 04/09/2021 12:32 [facility] ID: [id number] - [id number] [address] [place] [address], [address] LOINC: 4537-7 Test Value Unit Reference Range Code Code System Flag SED. RATE 3 mm/hr L=0 H=20 4537-7 LOINC TSH THYROID STIMULATING HORM ONE* - Collect Date/Time: 04/09/2021 12:32 [facility] ID: [id number] - [id number] [address] [place] [address], [address] LOINC: 3014-8 Test Value Unit Reference Range Code Code System Flag TSH 1.589 uIU/mL L=0.360 H=3.740 3014-8 LOINC Social History Type Status Start Date End Date Code Code Syst em Smoking History Never smoker (Never Smoked) [id number] SNOMED CT Sex Female Medications Medication Start [...] Code System No Known Allergies Moderate Active [id number] SN OMED-CT Plan of Treatment Symptoms 12/16/2020 Symptoms 06/15/2020 Exposure 02/20/2020 SYMPTOMS 04/16/2021 SYMPTOMS 02/10/2021 SYMPTOMS 01/25/2021 Encounters Encounter Diagnosis Start Date Code Code Sys tem Other fatigue 04/09/2021 SNOMED-CT Personal Care Team Section Performer Name Performer Role Active Date Inactive Da te
--- OUTSIDE RECORDS SUMMARY | 2023-10-25 10:47 | XMS_ITS | Encounter Summary ---
Author Organization [facility] Address [address] [place] [address] Care Team Providers Care Sales Consultant Insurance Name Role Phone Tj Carrillo MD Primary Care Provider Unav ailShelby Chapa APRN Primary Care Provider + Reason for Referral * Follow Up (Routine) - Receiving Office to Obtain Authorization Specialty Diagnoses / Procedures Referred By Contac t Referred To Contact Diagnoses Cerebral venous thrombosis during puerperium, Julia Montejo NP [address] [phone] Tj Carrillo MD [address] [place] [id number] Referral ID Status Reason Start Date Expiration Date Visits Requested Visits Authorized [id number] Receiving Office to Obtain Authorization Continuity of Care 8 1 1 Question Answer Reason for Request: Med managment follow up Expected Discharge Date (Inpatient Only): 02/07/2018 * Consult (Routine) - Closed Specialty Diagnoses / Procedures Referred By Contac t Referred To Contact Neurology Diagnoses Cerebral venous thrombosis Julia Montejo NP [address] [phone] Julia Montejo NP [address] [place] [phone] Referral ID Status Reason Start Date Expiration Date V isits Requested Visits Authorized [id number] Closed Specialty Services Required 02/06/2018 1 1 Question Answer Reason for Request: Follow up post cerebral venous thrombus Expected Discharge Date (Inpatient Only): 02/07/2018 * Consult (Routine) - Closed Specialty Diagnoses / Procedures Referred By Jack t Referred To Contact Hematology Diagnoses Cerebral venous thrombosis during puerperium, Daniel Liriano MD [address] [phone] Referral ID Status Reason Start Date Expiration Date V isits Requested Visits Authorized [id number] Closed Specialty Services Required 02/05/2018 1 1 Question Answer Reason for Request: please refer to thrombosis clinic -- new diagnosis of cerebral cortical vein thrombosis - new start Lovenox - Expected Discharge Date (Inpatient Only): 02/07/2018 Reason for Visit * Reason Comments Subdural Hematoma L sided subdural hem atoma with R sided defecits; per EMS, slurred speech, weakness unilaterally. Pt presents feeling the same. Exam documented. CT performed at [facility] Encounter Details Date Type Department Care Team (Late st Contact Info) Description 02/04/2018 4:04 EST - 02/06/2018 12:33 EST Hospital Encounter [facility] Neurosurgery Unit [address] [place] [address] Juan Rojas MD [address] [facility], Level [address] [place] [phone] Giovanna Villavicencio MD [address] [facility] [place] [phone] Ramirez Mcduffie MBBS [address] [place] [phone] Flako Palmer MD [address] [place] [address] SDH (subdural hematoma) ([facility]) (Primary Dx); Cerebral venous thrombosis during puerperium, ; Cerebral venous thrombosis Discharge Disposition: Home or Self Care Social [...] Sign Reading Time Taken Comments Blood Pressure 116/70 02/06/2018 0807 EST Pulse 66 02/06/2018 0410 EST Temperature 36.4 ??C (97.5 ??F) 02/06/2018 1200 EST Respiratory Rate 12 02/06/2018 1200 EST Oxygen Saturation 100% 02/06/2018 1200 EST Inhaled Oxygen Concentration - - Weight 81.6 kg (180 lb) 02/04/2018 0741 EST Height 160 cm (5' 3) 02/04/2018 0741 EST Body Mass Index 31.89 02/04/2018 0741 EST documented in this encounter [...] as of this encounter Discharge Diagnoses Diagnosis O87.3 Cerebral venous thrombosis in the puerperium-O87.3[ICD-10-CM] R20.8 Other disturbances of skin sensation-R20.8[ICD-10-CM] R29.810 Facial weakness-R29.810[ICD-10-CM] R29.701 NIHSS score 1-R29.701[ICD-10-CM] documented in this encounter Discharge Summaries * Julia Montejo, HIGH [employer]CHO[employer]INCIPAL - 02/06/2018 0640 EST Stroke Discharge Summary Primary Care Provider: Tj Carrillo Attending Physician: Flako Palmer MD Admit Date: 02/04/2018 Discharge Date: 02/06/2018 Disposition: Home or self care Problems Presenting Problem: Headache, R jessie numbness, expressive language difficulties Principal/Final Diagnosis: Cortical vein thrombosis Additional Problems Managed in the Hospital Active Hospital Problems Diagnosis Date Noted ??? *Cerebral venous thrombosis 02/05/2018 Resolved Hospital Problems Diagnosis Date Noted Date Resolved No resolved problems to display. Hospital Course Bettina Mckeon is a 27 y.o. women in previously good health on no prior medications who at time ofpresentation was 9 days post . She recent gave on 01/26 with an uncomplicated pregnancyand delivery. During labor and epidural was placed and shortly thereafter she developed a throbbingheadache which persisted for several days. A low pressure headache secondary to the LP was suspected an a blood patch was placed 01/29. She continued to experience a headache and developed new right jessie body numbness and some expressive language deficits prompting presentation to [facility] on 02/03. While there, a CT of the head was obtained and was reported as a left convexity hyperdensity consistent with a subdural hematoma, and she was transferred to the [facility] neurosurgical service for further evaluation and management of this presumed entity. Repeat imaging, however, ismore suggestive of cerebral venous thrombosis. MRI and MR venogram notable for a cortical venous thrombosis without diffusion restriction. All extremity ultrasounds showed no evidence of DVT. She was placed on a heparin gtt and by the second day obtained complete relief of her symptoms - specifically the headache and R jessie numbness. She was transitioned to therapeutic Lovenox (discussed several times with pharmacy and OBGYN regarding safety of Lovenox with ). She was placed on Lovenox 1 mg/kg BID and referred to hematology thrombosis clinic. To follow up with Neurology and PCP as well. Allergies and Immunizations No Known Allergies There is no immunization history on file for this patient. Transition of Care Plans Condition at Discharge Good Neurological Exam at Discharge Mental Exam: Awake and alert, cooperative at times, following commands Neurological Exam: Neurological Examination: Cranial Nerve II: Visual voalle were with in normal limits to confrontation Cranial Nerve III, IV and : oculomotor, trochlear and abducens nerve were intact Cranial Nerve V: Facial sensation was normal to light touch and temperature Cranial Nerve VII: No facial nerve palsy Cranial Nerve VIII: hearing intact; Cranial Nerve IX and X: normal movement of soft palate Cranial Nerve XI: able to shrug shoulder with some resistance placed Cranial Nerve XII: tongue midline no deviation with protrusion Motor Normal tone and bulk. No abnormal motor movements. Upper Extremity Right Left Deltoids 5 5 Bicep 5 5 Tricep 5 5 Green Ware Caster 5 5 ?? Lower Extremity Right Left Hip Flexion 5 5 Knee Flexion 5 5 Knee Extension 5 5 Ankle Plantarflexion 5 5 Ankle Dorsiflexion 5 5 ?? Reflexes 1+ bilateral patellar and achilles reflexes. ?? Sensation Intact to crude and light ?? Cerebellar/Movement Function No dysmetria on FNF Results Pending at Discharge Test results still pending from this admission None Discharge Medications Notice You have not been prescribed any medications. Relevant Studies at Discharge MR Angio Head Venogram W/WO contrast 02/04/18 Impression: 1. ??Redemonstration of a cortical vein [...] above interpretation and agree with the findings. CTA Head and neck with contrast 02/04/2018 ?? IMPRESSION: 1. Extra-axial serpiginous hyperdensity in the left frontoparietal region with lack of contrast opacification on the CTA images represents a thrombosed cortical vein. ?? 2. No intracranial hemorrhage or evidence of parenchymal edema. ?? 3. No arterial abnormality in the head or neck. ?? Last Lab Results at Discharge Creatinine: Lab Results Component Value Date CREATININE 0.49 (L) 02/04/2018 CBC: Lab Results Component Value Date WBC 8.77 02/05/2018 RBC 4.23 02/05/2018 HGB 12.6 02/05/2018 HCT 37.4 02/05/2018 MCV 88 02/05/2018 MCH 29.8 02/05/2018 MCHC 33.7 02/05/2018 PLT 251 02/05/2018 Electrolytes: Lab Results Component Value Date NA 138 02/04/2018 K 4.1 02/04/2018 CL 112 (H) 02/04/2018 CO2 22 02/04/2018 INR: Lab Results Component Value Date INR 1.0 02/04/2018 PROTIME 11.4 02/04/2018 NIHSS Criteria 02/04/2018 02/06/2018 Test Interval Baseline Other (Comment) Exam Date 02/04/2018 02/06/2018 Exam Time 0847 0900 LOC 0 0 LOC Questions 0 0 LOC Commands 0 0 Best Gaze 0 0 Visual 0 0 Facial Palsy 0 0 Left Arm, Motor 0 0 Right Arm, Motor 0 0 Left Leg, Motor 0 0 Right Leg, Motor 0 0 Limb Ataxia 0 0 Sensory 1 0 Best Language 0 0 Dysarthria 0 0 Extinction/Inatten. 0 0 Total Score 1 0 Additional Stroke Discharge Documentation Stroke Location: Cortical vein thrombosis Modified Dover Scale (mRs): 0 - No symptoms. Reason patient is not following up with Neurology: (Comment: following up in the thrombus clinic and neurology) Recent NIHSS Values 02/04/2018 02/06/2018 NIHSS Testing Interval: Baseline Other (Comment) Interval Exam Date: 02/04/18 02/06/18 Interval Exam Time: 0847 0900 Level of Consciousness (1a. ): 0 0 LOC Questions (1b. ): 0 0 LOC Commands (1c. ): 0 0 Best Gaze (2. ): 0 0 Visual (3. ): 0 0 Facial Palsy (4. ): 0 0 Motor Arm, Left (5a. ): 0 0 Motor Arm, Rigtht (5b. ): 0 0 Motor Leg, Left (6a. ): 0 0 Motor Leg, Right (6a. ): 0 0 Limb Ataxia (7. ): 0 0 Sensory (8. ): 1 0 Best Language (9. ): 0 0 Dysarthria (10.): 0 0 Extinction And Inattention: 0 0 Total: 1 0 Discharge Follow Up Upcoming Appointments Mar 12, 2018 11:00 EST New Patient Visit with Theodore Casas MD [facility] Hematology & Oncology - [facility] (--) [address] [facility] [address] Follow-up appointments and procedures Amb Consult/Follow Up Hematology Reason for Request: please refer to thrombosis clinic -- new diagnosis of cerebral cortical vein thrombosis - new start Lovenox - Expected Discharge Date (Inpatient Only): 02/07/2018 Authorizing Provider: Daniel Liriano MD Amb Consult/Follow Up Neurology Reason for Request: Follow up post cerebral venous thrombus Expected Discharge Date (Inpatient Only): 02/07/2018 Authorizing Provider: Julia Montejo APRN Amb Consult/Follow Up Primary Care Physician Reason for Request: Med managment follow up Expected Discharge Date (Inpatient Only): 02/07/2018 Authorizing Provider: Julia Montejo APRN Additional Information: Please follow up with your primary care physician, Shelby Li, on February 13, 2018 at 11:15 am. If you have any questions please call [phone]. Dr Palmer was present and examined patient prior to discharge Following information conveyed to Shelby Li's office, by Julia Montejo APRN: ?? Reason for admission and final diagnosis ?? Medication addition ?? Anticoagulation plan ?? Appointments and tests needed after discharge (includes repeat studies and at what interval) ?? Tests (laboratory, pathology, etc.) pending at discharge Discharge Summary Completed: Yes Julia Montejo APRN Associated attestation - Flako Palmer - 02/26/2018 1649 EST NEUROVASCULAR ATTENDING DAY OF DISCHARGE ATTESTATION I have seen and examined this patient with the Stroke Advanced Practice Nurse and agree with the assessment and plan as outlined. I personally reviewed the neurodiagnostic studies including imaging and neurophysiology tests. I spent more than 30 minutes in direct patient care. Coordination of care after discharge was discussed in detail and an outline of this plan was provided in writing to the patient and family. Message was left with office or rehab facility. Flako Palmer M.D. documented in this encounter Discharge Instructions * Discharge Instr - Activity* Julia Montejo APRN - 02/06/2018 12:02 EST As tolerated * Appointments* Lakshmi Ayers - 02/06/2018 9:49 EST Please follow up with your primary care physician, Shelby Li, on February 13, 2018 at 11:15 am. If you have any questions please call [phone]. * Attachments The following attachments cannot be sent through Care Everywhere. * ENOXAPARIN (LOVENOX) (ETHIOPIAN) documented in this encounter Medications at Time of Discharge Medication Sig Dispensed Refills Start Date End Date enoxaparin (LOVENOX) 80 mg/0.8 mL injection Inject 80 mg into the skin every 12 hours for 90 days. 60 Syringe 2 02/06/2018 04/25/2018 documented as of this encounter Ordered Prescriptions Prescription Sig Dispensed Refills Start Date End Da te enoxaparin (LOVENOX) 80 mg/0.8 mL injection Inject 80 mg into the skin every 12 hours for 90 days. 60 Syringe 2 02/06/2018 04/25/2018 enoxaparin (LOVENOX) 80 mg/0.8 mL injection Inject 80 mg into the skin every 12 hours for 90 days. 60 Syringe 2 02/06/2018 02/06/2018 documented in this encounter Discharge Disposition Disposition Code Departure Means Destination Home or Self Care documented in this encounter Progress Notes * Janeth Rogers, RN - 02/06/2018 1223 EST CM note: Lovenox covered by Medicaid without any PA. Patient to be discharged to home/self care with significant other. No further CM needs identified at this time. Janeth Rogers MSN, RN #[id number] * Ross Khan MD - 02/06/2018 1030 EST Neurosurgery Progress Note Problems/ Left cortical vein thrombosis Headache s/p epidural S/p blood patch (01/29/18) Procedures/ None 24/ Continued on heparin GENNARO overnight Subjective/ I feel much better. Denies complaints. Objective/ Blood pressure 116/70, pulse 66, temperature 36.5 ??C (97.7 ??F), temperature source Tympanic, resp. rate 14, height 160 cm (63), weight 81.6 kg (180 lb), SpO2 100 %. Temp: [36.5 ??C (97.7 ??F)-37.1??C (98.8 ??F)] () BP: (111-133)/(70-85) () Exam: Alert, Attentive Verbalizes appropriately, fluently Phonation and articulation appropriate Oriented to self, location, date Follows commands x4 Extraocular movements intact Pupils equal, round, reactive Face symmetric Shoulder shrug 5/5 Full strength in bilateral upper extremities No drift Full strength in bilateral lower extremities Studies/ Na/K/Cl/CO2: 138/4.1/112/22 (02/04 418) WBC/Hgb/Hct/Plts: 8.77/12.6/37.4/251 (02/05 342) BUN/Cr/glu/ALT/AST/amyl/lip: 12/0.49/--/--/--/--/-- (02/04 418) Assessment/ Bettina Mckeon is a 27 y.o. female who is post-, labor assisted by an epidural, who has beensuffering post-LP type headaches despite blood patch, who presented with acute onset of right sidednumbness and expressive aphasia, discovered to have a left frontal cortical vein thrombosis. Continue management per Neurology. No neurosurgical intervention or follow up required.?? Plan/ Neurochecks per Neurology Agree with anticoagulation No Neurosurgical intervention Okay to dispo Ross Khan MD Neurosurgery resident 02/06/2018 10:30 Page 1917 with questions * Janeth Rogers RN - 02/05/2018 7417 EST Initial Case Management/Social Work Assessment and Discharge Plan/Readmission Risk Assessment REASON FOR ADMISSION: Cerebral venous thrombosis Patient understands reason for admission: Yes PATIENT CONTACT INFO VERIFIED: Yes PATIENT ADDRESS VERIFIED: Yes LIVING ARRANGEMENTS AND ACCESSIBILITY ISSUES: Living Arrangements: Family members Levels: 2 Stairs to enter: 2 Handicap access: None Bathroom located on bedroom level?: Yes What in home social supports are available to the patient? Family member(s), Friends / neighbors, Spouse / significant other Is / care available? No ADVANCED DIRECTIVES, POA &/or COLST IN PLACE: Healthcare Directive: No, patient does not have advance directive for healthcare treatment Information Provided on Healthcare Directives: No Information on Healthcare Directives Requested: No DIRECTIVES FOR FINANCES: TRANSPORTATION: Transportation: Family CULTURAL, ADVENTISM and/or LANGUAGE factors affecting health care/discharge planning: Spiritual/Cultural Requests: None Any factors affecting health care/discharge planning?: No Insurance in Place: Yes Medical Insurance: Yes Type of insurance: Medicaid Medicaid Type: Community Referred to patient financial services: No DISCHARGE RISK ASSESSMENT: None of the above risks identified Total # selected above: Score: Zero Tentative plan to address the risk of re-hospitalization for those at HIGH MODERATE RISK: n/a RAPT TOOL: Patient expects to be discharged to: PT <50 yoa, RAPT tool n/a SBIRT: SASQ (Single Alcohol Screening Question) How many times in the past year have you had 4 or more drinks in a single day?: Never How many times in the past year have you used an illegal drug or used a prescription medication fornon-medical reasons?: Never Intervention in place/initiated?: No, not indicated FUNCTIONAL STATUS: Activities patient requires assistance: None Assistive Device: None COMMUNITY RESOURCES/SUPPORTS: Primary Care Provider: Tj Carrillo PCP Verified: Yes Specialists: None Type of Home Health Services: None DME Provider: Pharmacy: [facility] [place], [place] - [address] [facility] [address] Home Health: Other: POST HOSPITAL TRANSITION PLAN: Met with patient and family; no immediate CM needs identified at this time. CM will continue to follow. Janeth Rogers RN 02/05/2018 13:55 * Janeth Rogers RN - 02/05/2018 1335 EST Stroke Multidisciplinary Rounds Notation Attendance: Nursing- Charge Nurse- Germaine Choudhray RN present. Orders have been reviewed, patient status updated to team, stroke care plan and education plan reviewed. Resident- Ross Malagon MD present. Patient medically reviewed and recommendations addressed. Case Management- Janeth Rogers RN and Carlee Walker LMSW present. Barriers to discharge have been discussed with team and patient/family and reviewed with the Stroke Team. Therapies (PT/OT/AVP)- Rosa Cerna PT present. Current therapy orders/treatment plans havebeen addressed, and reviewed with the Stroke Team. Acute Rehab- Magy Rodriguez RN present. Appropriateness of discharge to Acute Rehab facility has been addressed, and reviewed with the Stroke Team. Pharmacy - Ledy Moses PharmD present. Current medications have been reviewed. Recommendations have been addressed with the stroke team as needed. Spiritual Care- Spiritual needs have been addressed in accordance to patient/family wishes. Stroke ENGINEER SYSTEMS/Coordinator- Julia Montejo APRN present. Core measures have been reviewed for compliance, and when needed, appropriately addressed. Left cortical vein thrombosis, on heparin, will transition to lovenox in preparation for discharge. * Ross Khan MD - 02/05/2018 1014 EST Neurosurgery Progress Note Problems/ Left cortical vein thrombosis Headache s/p epidural S/p blood patch (01/29/18) Procedures/ None 24/ Started on heparin gtt DVT Duplex x4 - negative for DVTs in BUE and BLE GENNARO overnight Subjective/ I feel much better. No numbness in my right arm, right leg is good. No speech problems. No headache. Denies complaints. Objective/ Blood pressure 122/66, pulse 68, temperature 36.7 ??C (98.1 ??F), temperature source Tympanic, resp. rate 18, height 160 cm (63), weight 81.6 kg (180 lb), SpO2 98 %. Temp: [36.3 ??C (97.3 ??F)-37 ??C (98.6 ??F)] () BP: (109-127)/(65-80) () Exam: Alert, Attentive Verbalizes appropriately, fluently Phonation and articulation appropriate Oriented to self, location, date Follows commands x4 Extraocular movements intact Pupils equal, round, reactive Face symmetric Tongue midline Shoulder shrug 5/5 Full strength in bilateral upper extremities No drift Full strength in bilateral lower extremities Studies/ Na/K/Cl/CO2: 138/4.1/112/22 (02/04 418) WBC/Hgb/Hct/Plts: 8.77/12.6/37.4/251 (02/05 342) BUN/Cr/glu/ALT/AST/amyl/lip: 12/0.49/--/--/--/--/-- (02/04 418) Assessment/ Bettina Mckeon is a 27 y.o. female who is post-, labor assisted by an epidural, who has beensuffering post-LP type headaches despite blood patch, who presented with acute onset of right sidednumbness and expressive aphasia, discovered to have a left frontal cortical vein thrombosis. Further workup per Neurology, as no Neurosurgical intervention required.?? Plan/ Neurochecks per Neurology Agree with anticoagulation Further imaging per Neurology Consider transferring patient to Mother-Baby unit to be with her No Neurosurgical intervention Ross Khan MD Neurosurgery resident 02/05/2018 10:14 Page 5550 with questions Associated attestation - Giovanna Villavicencio MD - 02/05/2018 1133 EST Neurosurgery Staff ?? I have seen and examined this patient. I reviewed the patient's history and exam with the Neurosurgery Resident. I agree with the findings, assessment and treatment plan as documented in the resident's note. Neurologically stable. Reports right sided symptoms are much improved, no speech problems. MRI withleft frontoparietal cortical vein thrombosis, no evidence of venous infarction noted. Continues on heparin gtt. documented in this encounter H&P Notes * Christiano Newell MD - 02/04/2018 0241 EST Images from the original note were not included. Neurosurgery H&P Problems/ Left frontal subdural hematoma Headache s/p epidural S/p blood patch (01/29/18) Anticoagulation or Antiplatelet use/ none HPI: Bettina Mckeon is a 27 y.o. right handed female who gave on 01/26 with the aid of an epidural who subsequently has been suffering with post-LP type headaches and underwent a blood patch on 01/29 with minimal relief of symptoms, who presented today after an episode of right sided numbness and speech difficulty and was found to have a left convexity subdural hematoma. She reports that since giving , she has had holocephalic headaches that are worse when sitting upright and will resolve when lying flat. She underwent a blood patch 6 days ago, but has not really had relief from this. She presented to [facility] today after developing right sided numbness around 18:00. She states that she had diffuse numbness that started in her right leg and then progressed to include her arm and face. Additionally, she had difficulty with speech in that she could not say the words she wanted. She has not had any recent trauma. Since the onset of symptoms, she says that the la nguage has improved nearly to baseline and her right leg no longer feels numb, but her right arm and face still do. She denies any right sided weakness. She denies any left sided symptoms. She has had no nausea or vision changes. On presentation to [facility], a head CT was obtained and remarkable for what is most likely a left convexity subdural hematoma. For this finding, she was transferred to [facility] and neurosurgery was consulted. All available outside records were reviewed. Did patient have a stroke or TIA? No PMH: History reviewed. No pertinent past medical history. PSH: History reviewed. No pertinent surgical history. Problem List: There is no problem list on file for this patient. ROS: A 10 point ROS was completed and pertinent positives were mentioned in the HPI and ALL OTHERS ARE NEGATIVE FH: No family history on file. SH: History Alcohol Use No History Smoking Status ??? Never Smoker Smokeless Tobacco ??? Never Used ALL: Allergies not on file MEDS: Reviewed in Epic EXAM: Blood pressure 126/75, temperature 37 ??C (98.6 ??F), resp. rate 18, SpO2 99 %. GCS15 (E4,V5,M6) Alert, Attentive Verbalizes appropriately, fluently Phonation and articulation appropriate Oriented to self, location, date Naming and function intact Pen, write Repetition intact [id number]-vfp-huty-or-buts Follows commands x4 Visual ovalle intact to confrontation Extraocular movements intact Pupils equal, round, reactive Mild right lower facial droop at rest and with activation, complete eye closure bilaterally Facial sensation intact in V1-3 distributions bilaterally - feels equal bilaterally per patient Tongue midline Shoulder shrug 5/5 UE Strength - LEFT Deltoid (C5) 5/5 Bicep (C5, 6) 5/5 Tricep (C6, 7) 5/5 Green Ware Caster (C8) 5/5 Interrosei (T1) 5/5 UE Strength - RIGHT Deltoid (C5) 5/5 Bicep (C5, 6) 5/5 Tricep (C6, 7) 5/5 Green Ware Caster (C8) 5/5 Interrosei (T1) 5/5 Reflex Brachioradialis (C5) 2/4 Bicep (C5) 2/4 Tricep (C7) 2/4 Mack Not present No drift Sensation intact in bilateral upper extremities (C5/C6/C7/C8 distributions) Sensation to touch feels equal to patient, despite subjective numbness at rest LE Strength - LEFT Iliopsoas(L2, 3) 5/5 Quadricep (L3, 4) 5/5 Knee Flexor (L5, S1) 5/5 Gastroc (S1, S2) 5/5 Anterior Tibialis (L4, 5) 5/5 Extensor Hallicus (L5) 5/5 LE Strength - RIGHT Iliopsoas(L2, 3) 5/5 Quadricep (L3, 4) 5/5 Knee Flexor (L5, S1) 5/5 Gastroc (S1, S2) 5/5 Anterior Tibialis (L4, 5) 5/5 Extensor Hallicus (L5) 5/5 Reflex Patellar 2/4 Gastroc 2/4 Crossed Adductor Not present Clonus absent Sensation intact in bilateral lower extremities (L4/L5/S1 distributions) Multiple small puncture sites at thoracolumbar spine, no drainage or swelling HEENT: no scalp laceration, no fluid draining from nares or ears CV regular Resp nonlabored on RA, no audible wheezes Extremities warm No long bone deformities No rashes or lesions on any exposed areas LABS: Laboratory studies independently reviewed. WBC/H/H/Plt 11.46/14.4/44/299 IMAGING: Imaging studies independently reviewed. CT Head: Extra-axial hyperdensity along the left frontal convexity which likely represents a thing subdural hematoma, though may also represent dilated vascular structure. There is no significant brain compression or midline shift associated with this finding. Assessment: 27 y.o. female who is 9 days post-, labor assisted by an epidural, who has been suffering post-LP type headaches despite blood patch, who presented with acute onset of right sided numbness and expressive aphasia, discovered to have a left frontal convexity extra-axial hyperdensity consistent with hemorrhage. On my exam patient is awake and alert, full strength throughout upper and lower extremities, with only subjective right arm numbness and trace right lower facial droop. Leading etiology is that the CT finding represents a subdural hematoma caused by intracranial hypotension caused by ongoing spinal fluid leak from epidural site and her presenting symptoms related to local brain irritation from the hemorrhage. Less likely, though possible is that this finding represents a vascular anomaly that may also be causing focal irritation leading to symptoms. Will plan to admit for close neurologic monitoring and further work up with repeat head CT and CTA to evaluate vasculature. Plan: - Admit to SICU, neurosurgery service - q1 hour neuro checks - Keppra 500mg BID - HOB ad yordan, ok for flat if provides symptom relief - SBP <140 - Repeat head CT with CTA at 0600 - Regular diet - Routine labs - MIGUEL/SCDs Patients status and plan discussed with senior neurosurgery resident. Christiano Newell MD Neurosurgery resident 02/04/2018 2:42 Page [id number] with questions Associated attestation - Giovanna Villavicencio MD - 02/04/2018 1323 EST Neurosurgery Staff ?? I have seen and examined this patient. I reviewed the patient's history and exam with the Neurosurgery Resident. I agree with the findings, assessment and treatment plan as documented in the resident's note. 27 yo presenting with likely left convexity cortical venous thrombosis in post- period. Imaging does not appear consistent with an acute SDH. Agree with plans for further imaging with MRI/MRV and starting heparin. documented in this encounter Consult Notes * Daniel Liriano MD - 02/05/2018 1630 EST [facility] NEUROLOGY DAILY PROGRESS NOTE PATIENT NAME: Bettina Mckeon PCP: Tj Carrillo ADMIT DATE: 02/04/2018 DATE OF SERVICE: 02/05/2018 CODE STATUS: Full Code CHIEF COMPLAINT: confusion, headache REASON FOR CONSULT: evaluate/manage central venous thrombosis SUBJECTIVE/INTERVAL HISTORY Bettina is doing extremely well today. She no longer has a headache or language abnormalities. She has had no events concerning for seizures. She remains on the heparin gtt with plans to transition off to lovenox. REVIEW OF SYSTEMS: Complete 10-point ROS performed with pertinent positives and negatives documented in HPI. CURRENT MEDICATIONS enoxaparin 1 mg/kg Q12H acetaminophen 650 mg Q4H PRN Or acetaminophen 650 mg Q4H PRN Or acetaminophen 650 mg Q4H PRN calcium carbonate 1 Tab Q4H PRN docusate sodium 100 mg BID PRN ondansetron (PF) 4 mg Q4H PRN VITAL SIGNS BP 132/85 Pulse 68 Temp 37.1 ??C (98.8 ??F) Resp 18 Ht 160 cm (63) Wt 81.6 kg (180 lb) SpO2 98% BMI 31.89 kg/m2 GENERAL EXAM: General appearance: alert, cooperative, no distress, appears stated age. HEENT: Normocephalic, atraumatic, nonerythematous conjunctivae, MMM, appropriate dentition, supple neck Lungs: clear to auscultation bilaterally Heart: regular rate and rhythm, +S1, S2 normal with physiologic splitting, no appreciable murmur. Pulses: 2+ and symmetric NEUROLOGIC EXAM: Mental Status: Alert and oriented to person, place, time, reason for admission. Naming, comprehension, repetition intact with no evidence of aphasia. Cranial Nerves: PERRL, visual ovalle full to finger counting in all quadrants, visual acuity 20/25 in each eye without corrective lenses, EOMI, sensation intact to light touch symmetrically and bilaterally in V1-V3 distribution, right nasolabial flattening with asymmetric limitation in activation on the right whenasked to smile, symmetri eyebrow raise, symmetric palatal raise, tongue midline Motor: Normal muscle bulk and tone. Full strength throughout. Deep Tendon Reflexes: 1+ bilaterally in biceps, triceps, brachioradialis, patellar, and achilles. Superficial Reflexes: Plantar response is downgoing toes bilaterally. Coordination: Finger to nose and heel to kapoor intact bilaterally with no truncal ataxia LABORATORY DATA: Reviewed in [facility]ISM. Pertinent studies include: WBC/Hgb/Hct/Plts: 8.77/12.6/37.4/251 (02/05 342) Na/K/Cl/CO2: 138/4.1/112/22 (02/04 418) BUN/Cr/glu/ALT/AST/amyl/lip: 12/0.49/--/--/--/--/-- (02/04 418) PT/INR/PTT: 11.4/1.0/26 (02/04 418) RADIOLOGICAL STUDIES: Personally reviewed. Pertinent recent studies include: MR head and MR venogram Cortical vein thrombosis on the left. No evidence of dural venous sinus or deep cerebral thrombosis. ASSESSMENT: Bettina Mckeon is a 27 y.o. female previous good health who is 10 days . She presented with 1 day of expressive language deficits and R jessie body numbness. Neurology examination notable for subtle R facial droop and dysesthesia. MR venogram notable for a large cortical vein thrombosis. She was initially placed on heparin gtt and her symptoms resolved rapidly (specifically the headache). Will now plan to transition her to Lovenox injections with hopeful discharge tomorrow and follow up in thrombosis clinic. PLAN Left cortical vein thrombosis - Admit to neurology with every 4 hour neuro checks -- attempting to transfer out of SDU (ideally to [facility]) but beds are limited - Currently on heparin gtt with target UFH 0.3-0.7 - Will plan to start therapeutic enoxaparin 1 mg/kg BID this evening - Injection training - Will refer to hematology outpatient - Ultrasound all extremities without evidence of DVT - Tylenol PRN Daniel Liriano M.D. PGY-3, Neurology Pager # [phone] Associated attestation - Flako Palmer - 02/26/2018 1654 EST NEUROVASCULAR ATTENDING ATTESTATION I have seen and examined this patient with the Neurology Resident and agree with the assessment andplan as outlined. I personally reviewed the neurodiagnostic studies including imaging and neurophysiology tests. The results of these tests as well as the plan of care was discussed with the patient and family when available at the bedside. Flako Palmer M.D. * Rojas Malagon Jr., MD - 02/04/2018 0741 EST Images from the original note were not included. [facility] NEUROLOGY CONSULTATION PATIENT NAME: Bettina Mckeon PCP: Tj Carrillo ADMIT DATE: 02/04/2018 DATE OF SERVICE: 02/04/2018 CODE STATUS: Full Code CHIEF COMPLAINT: confusion, headache REASON FOR CONSULT: evaluate/manage central venous thrombosis, evaluate etiology of language disturbance REQUESTING PHYSICIAN TEAM: Neurosurgery REQUESTING ATTENDING: Dr. Villavicencio HISTORY OF PRESENT ILLNESS: Bettina Mckeon is a right handed 27 y.o. female in previously good health and not on any medications, who is 9 days . On 01/26 she gave to her daughter Anshu at [facility]. She states that the and the delivery were uncomplicated, there was no major bleeding nor sutures required. During labor an epidural was placed, she states that it took 4 tries but once in place was effective. However she states that she developed a holocephalic, throbbing headache shortly after the placement of the epidural. At no time was the headache accompanied by vision changes, nausea, photo phonophobia. The headache has persisted up until the present with no clear worsening nor improvement, and she does note that the headache significantly improved with lying flat and is much worse with sitting upright or standing. In light of suspicion for a CSF leak with low pressure headache, on 01/29 a blood patch was performed,unfortunately she states that there was no benefit from this. Yesterday 02/03 she presented to [facility] with new onset of right sided subjective sensory loss in her face, arm, and leg. And she also noted periods in which her speech was slurred and that she was unable to generate the words/phrases that she wanted to, but could easily understand what people were saying to her. While there, a CT of the head was obtained and was reported as a left convexity hyperdensity consistent with a subdural hematoma, and she was transferred to the [facility] neurosurgical service for further evaluation and management of this presumed entity. Repeat imaging, however, is more suggestive of cerebral venous thrombosis. This morning while lying supine in bed she states that the headache is minimal, 1/10 intensity. Shestates that if she were to sit up or stand it would ultimately evolved to a 9/10 headache. She again corroborates that there is been no vision changes, nausea, photo phonophobia. She states that as of last night the language deficits had essentially resolved, and that she no longer detected any numbness in her right leg, but that the numbness in the right face and arm persisted. She initially denied any issues with strength or dexterity in the right arm, but when subtle deficits were detected during the examination this morning she acknowledges that she feels slightly weaker in the right hand. Neurology consultation has been requested due to suspicion for cerebral venous thrombosis and to assist in the evaluation and management of her focal neurologic deficits and headache. SOCIAL HISTORY: Lives in [place] with her infant daughter and significant other. 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 REVIEW OF SYSTEMS: Complete 10-point ROS performed with pertinent positives and negatives documented in HPI. PAST MEDICAL HISTORY: No past medical history PAST SURGICAL HISTORY: Tonsillectomy at age 7 PRIOR TO ADMISSION MEDICATIONS: As needed Tylenol, ibuprofen. CURRENT MEDICATIONS levETIRAcetam 500 mg Q12H Or levETIRAcetam 500 mg Q12H acetaminophen 650 mg Q4H PRN Or acetaminophen 650 mg Q4H PRN Or acetaminophen 650 mg Q4H PRN calcium carbonate 1 Tab Q4H PRN docusate sodium 100 mg BID PRN hydrALAzine 10 mg Q1H PRN ondansetron (PF) 4 mg Q4H PRN ALLERGIES: NKDA FAMILY HISTORY: Family history of stroke: none known Family history of seizure: none known Family history of thrombosis or coagulopathy: none known VITAL SIGNS BP 122/70 Pulse 68 Temp 37 ??C (98.6 ??F) (Oral) Resp 17 Ht 160 cm (63) Wt 81.6 kg (180 lb) SpO2 97% BMI 31.89 kg/m2 GENERAL EXAM: General appearance: alert, cooperative, no distress, appears stated age. HEENT: Normocephalic, atraumatic, nonerythematous conjunctivae, MMM, appropriate dentition, supple neck Lungs: clear to auscultation bilaterally Heart: regular rate and rhythm, +S1, S2 normal with physiologic splitting, no appreciable murmur. Pulses: 2+ and symmetric NEUROLOGIC EXAM: Mental Status: Alert and oriented to person, place, time, reason for admission. Naming, comprehension, repetition intact with no clear expressive language deficits identified this morning. Cranial Nerves: PERRL, visual ovalle full to finger counting in all quadrants, visual acuity 20/25 in each eye without corrective lenses, ishihara color plates intact in both eyes, EOMI, sensation intact to light touch symmetrically and bilaterally in V1-V3 distribution, right nasolabial flattening with asymmetriclimitation in activation on the right when asked to smile, symmetri eyebrow raise, symmetric palatal raise, tongue midline Motor: Normal muscle bulk and tone. Decreased rapid independent finger movements on the right. Power is grossly 4+/5 in the right upper extremity throughout, and otherwise full power in the remaining extremities. Deep Tendon Reflexes: 1+ bilaterally in biceps, triceps, brachioradialis, patellar, and achilles. Superficial Reflexes: negative Mack's. Plantar response is downgoing toes bilaterally. Sensation: Subtle subjective hypoesthesia to fine touch, cold temperature in the right face and upper extremity. These modalities are otherwise intact in the remaining extremities, and 128 Hz tuning fork is intact in all extremities. Coordination: Finger to nose and heel to kapoor intact bilaterally with no truncal ataxia LABORATORY DATA: Reviewed in [facility]ISM. Pertinent studies include: Na/K/Cl/CO2: 138/4.1/112/22 (02/04 418) BUN/Cr/glu/ALT/AST/amyl/lip: 12/0.49/--/--/--/--/-- (02/04 418) PT/INR/PTT: 11.4/1.0/26 (02/04 418) RADIOLOGICAL STUDIES: Personally reviewed. Pertinent recent studies include: CT head without contrast, CT angiogram head On my review, serpiginous hyperdensity within a left cortical vein, possibly the vein of [place]. No clear evidence of any hyperdensity outside of the vascular structures that would be suggestive of a hematoma. No clear areas of parenchymal hypodensity. There is adequate venous phase of the contrast on the angiogram, and there appears to be a filling defect in the aforementioned venous structure. ASSESSMENT: Bettina Mckeon is a 27 y.o. female previous good health who is 9 days . She presents with holocephalic headache with onset coinciding with epidural placement on 01/26 and with 1 day of expressive language deficits and right hemibody numbness. Neurologic examination today is notable for right faciobrachial paresis and hypesthesia. Initially this was felt to be a low pressure headache given the temporal onset coinciding with the epidural placement, and the postural quality to the headache. Following the onset of the focal neurologic deficits neuro imaging initially raised concern fora subdural hematoma however on further review this more likely represents thrombus within a large cortical vein supplying feeding to the superior sagittal sinus. She is at risk for this clinical phenomenon due to hypercoagulability in the post- period. Treatment to consist of therapeutic anticoagulation and hypercoagulability workup. It is unclear if there is separately a low pressure phenomenon and whether or not this is related to the cerebral venous thrombosis. RECOMMENDATIONS: MRI Head without contrast MRV head with gadolinium DVT ultrasound all extremities New start heparin infusion, no boluses, target UFH 0.3 - 0.7 Discontinue levetiracetam. If no diffusion restriction is identified on the MRI in the left fronto-parietal regions and her subjective deficits persist, then EEG monitoring can be considered Headache management with magnesium, IV fluids, Tylenol. If the headaches remain intractable we could discuss use of neuroleptic anti-emetics such as prochlorperazine. Ultimately anticipate outpatient follow-up in the thrombosis and hemostasis program Staffed with Dr. Mcduffie. Rojas Malagon MD Department of Neurology PGY 4 [phone] [phone] (Pager [phone] after hours or on weekends) 02/04/2018 7:42 Additional Information for Suspected Stroke Stroke code:No Last Known Well Time: (P) 1200 Date: (P) 02/03/[address] [facility], NIHSS: NIHSS Criteria 02/04/2018 Test Interval Baseline Exam Date 02/04/2018 Exam Time 0847 LOC 0 LOC Questions 0 LOC Commands 0 Best Gaze 0 Visual 0 Facial Palsy 0 Left Arm, Motor 0 Right Arm, Motor 0 Left Leg, Motor 0 Right Leg, Motor 0 Limb Ataxia 0 Sensory 1 Best Language 0 Dysarthria 0 Extinction/Inatten. 0 Total Score 1 t-PA Decision: TPA Decision: (P) No TPA admin Endovascular intervention considered?: (P) Yes Is this a TIA: (P) No Is patient on telemetry?: (P) Yes Arrhythmias noted while on telemetry: (P) NSR Dysphagia screen prior to food/fluids/meds was performed per protocol. The patient passed swallow screen. Has the patient smoked at least one cigarette in the past year?: (P) No Enrolled in a clinical research study?: (P) No Personal Risk Factors: (P) (recent - hypercoagulability) Treatment plan and/or risk/benefits of treatment/diagnostic work-up was fully discussed at bedside:(P) Yes - Patient/Family in agreement with current plan Associated attestation - Ramirez Mcduffie MBBS - 02/04/2018 2216 EST Attestation: I saw and examined the patient with the resident/fellow 02/04/2018. I agree with the findings and plan of care documented in the resident's/fellow's note. Post headache that was positional, thought to be intrcranial hypotension, treated with blood patch with no improvement, 5 days later developed right sided numbness, dysarthria and word finding difficulty found to have right cortical vein thrombosis. On exam has subtle facial droop, right arm and leg drift and mild weakness.Personal and family History negative for hypercoagulable state. MRI brain and MRV to confirm or seethe extent of thrombosis, continue anticoagulation. Possible etiology is hypercoagulable state vs intracranial hypotension leading to CVT. Ramirez Mcduffie MD 02/04/2018 22:11 documented in this encounter ED Notes * Juan Rojas MD - 02/04/2018 0953 EST This patient received an evaluation and medical screening exam for emergent medical conditions at the [facility] on 02/04/2018 Scribe attestation: This documentation is recorded by Danielle Garcia acting as Scribe under the direction and presence of Giovanna Villavicencio MD. Giovanna Villavicencio MD: I personally performed the services recorded by the scribe in my presence. I confirm the scribe's documentation has been reviewed by me to accurately and completely record my work, treatment, procedures, and medical decision making. HPI Bettina Mckeon is an otherwise healthy 27 y.o. female with PMH including recent vaginal delivery 9days who presents to the ED as a transfer from [facility] for neurology evaluation of a leftsided atraumatic subdural hematoma. Pt developed a headache a few days prior and was treated with blood patch for suspected postspinal headache however symptoms did not resolve. This evening around 1800 pt had just finished eating dinner when she developed sudden right sided hand weakness and numbness as well as speech disturbance. Pt notes that numbness and weakness progressed to her right leg over time. She was seen at [facility] where imaging demonstrated subdural hematoma and was transferred here for further evaluation. Pt currently reports continued numbness & weakness in her right hand however symptoms in her leg have since resolved. Headache has been persistent. She reports her baby has been doing very well and delivery was without complications. Pt is not anticoagulated. She has no known family history of acute bleeds. Pt denies easy bleeding or bruising. She otherwise has been in her usual state of health and denies recent fever, chills, nausea, vomiting, visual changes, headtrauma or loss of consciousness. History was provided by: Patient & Medical records. Patient's pertinent PMH, FH, SH were reviewed and updated PRN. ROS A 10-point review of systems was performed. The patient answered negative to all questions with theexceptions of those explicitly detailed as positives in the HPI. Pertinent negatives are also explicitly stated. Physical Exam Vital Signs Vitals Reassessment?: Yes Temp: 37 ??C (98.6 ??F) Temp src: Oral Pulse: 68 Heart Rate: 65 BPM Cardiac Rhythm: Normal sinus rhythm Resp: 17 SpO2: 97 % BP: 125/75 BP MAP: 89 mm Hg BP Device: BP Machine Patient Position: Supine BP Cuff Location: Right arm O2 Device: None (Room air) Nursing notes and vital signs were reviewed. Constitutional: She is nontoxic no acute distress Eyes: Pupils equal and reactive to light, no scleral icterus Mouth: Moist oral mucosa without apparent lesions Neck: Full ROM, no cervical LAD, supple with no meningismus Heart: RRR without murmurs, rubs or gallops, normal pulses in all extremities Lungs: Clear to auscultation, no respiratory distress or tachypnea Abdomen: Soft NT/ND, no rebound and no guarding Skin: No overt rashes on exposed skin Extremities: Moving spontaneously, warm and well perfused, no edema, no calf tenderness Neuro: No pronator drift. Subtle weakness with right sided accounts receivable executive strength. Strength 4+/5 RUE & RLE. Mild right sided facial droop. EOM intact. Strength normal left upper extremity, normal sensation throughout bilateral upper and lower extremities Psych: No agitation or overt thought disorder Medical Decision Making The patient is a 27 y.o. female, who presents with a possible subdural hematoma . Differential would include a dilated vascular structure by CT report. Patient with mild neurologic deficitson the right side. Discuss with neurosurgery they will come evaluate the patient. Patient currentlyno acute distress, some of her symptoms are improving. Her blood pressures under control. Neurosurgery plans to admit the patient will order further testing is indicated. Prior to discharge discussed with the patient likely diagnosis, expected course, treatment plan, follow-up plan and reasons to return <principal problem not specified> Laboratory Results Labs Reviewed ELECTROLYTES - Abnormal Result Value Status Sodium 138 Final Potassium 4.1 Final Chloride 112 (*) Final CO2 22 Final CREATININE - Abnormal Creatinine 0.49 (*) Final GFR, Calculated 135 Final BUN BUN 12 Final PTT PTT 26 Final PROTIME Pro Time 11.4 Final I.N.R. 1.0 Final Data Interpretation Laboratory results independently reviewed, significant for: INR 1.1, PTT 26, Creatinine 0.49, BUN 12, normal electrolytes. CT Head: Extra-axial hyperdensity along the left frontal convexity which likely represents a thing subdural hematoma, though may also represent dilated vascular structure. There is no significant brain compression or midline shift associated with this finding. Procedures Procedures ED course VSS upon arrival to ED. Neurosurgery was consulted and agreed on admission after evaluating the pt with plan to obtain CTA head/neck with contrast. Pt was admitted to ICU under neurosurgeon, . Disposition Disposition decisions were made weighing risks and benefits of hospitalization vs. outpatient treatment, the risk for further decompensation, and the patient???s wishes. * Olga Skinner RN - 02/04/2018 0620 EST Report called to MEREDITH Lyle. * Butch Quintanilla RN - 02/04/2018 0302 EST Pt reported off to Olga HARPER at 0300. * Butch Quintanilla RN - 02/04/2018 0302 EST Neurosurgery in room. * Jaspal Godwin - 02/04/2018 0243 EST TCALL: REFERRED BY ASHLYN. 89F, R FACIAL DROOP/RLE WEAKENING. CALL NEUROLOGY WHEN ARRIVES. NOTE BYDR ROJAS (DJP) * Butch Quintanilla RN - 02/04/2018 0234 EST Pt presents with no complaints of pain, describes h/a today and felt like I needed to sit down. Pt NAD, VSS, evaluated independently by MD and RN. Neurosurgery to see. 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 documented in this encounter Miscellaneous Notes * Plan of Care - Miladis Hobbs RN - 02/06/2018 1207 EST Problem: Daily Care Plan Goals Goal: Care Plan Documentation Outcome: Met This Shift 02/06/18 1203 02/06/18 1206 Care Plan Focus Area of Focus Discharge Plan -- Goal This Shift -- Pt will discharge to home this shift Nursing Discharge Note D: Patient noted with discharge orders to: home. A: Prescriptions provided to patient. Reviewed discharge instructions and prescriptions with Patient and Family IV d/c'd. Belongings collected and sent home with patient. R: Patient and Family verbalized understanding of discharge instructions and denied further questions. Miladis Hobbs RN 02/06/2018 12:06 * Plan of Care - Maya Trevino RN - 02/06/2018 0539 EST Problem: Daily Care Plan Goals Goal: Care Plan Documentation Data: Assumed care of pt at 1900. Pt AAOX3. No deficits noted. Pain well controlled with Tylenol throughout shift. Ambulating independently in room. Tolerating a regular diet and taking pills whole. Lungs CTAB. No cardiac irregularities. BM 2 days ago, but per pt that is normal. Continent of urine. Skin intact with scant vaginal bleeding. Action: Assessment completed. Medicated per orders. Stopped heparin gtt last evening and bridged toLovenox. Teaching reinforced. Response: Continue to monitor per care plan. Continue to medicate per orders. Bed in lowest position and call headley within reach. Maya Trevino RN 02/06/2018 5:37 * Plan of Care - Isabel Henry RN - 02/05/2018 0623 EST Problem: Daily Care Plan Goals Goal: Care Plan Documentation Outcome: Ongoing 02/04/182042 Care Plan Focus Area of Focus Neuro Status Goal This Shift will monitor for neuro changes Data: Pt AOx3 at start of shift. 4+/5 strength in RUE. All other extremities 5/5 strength. No sensory or visual deficits. PERRLA intact. Heparin gtt infusing per orders. VS within parameters. Pt reports mild 3/10 frontal ROSEN pain. Flat bedrest at this time. day 9. Pumping supplies and personal fridge at bedside. Action: Monitored pt neuro status and VS per orders. Monitored for signs/symptoms of bleeding. Assisted pt with toileting/hygiene needs. Provided emotional support to pt. Assessed for pain. Maintained heparin gtt per MAR/orders. Notified of [facility] lab results Response: Pt neuro status stable overnight. VS within parameters. UFH levels within therapeutic range. 2/10 ROSEN towards end of shift. Pt verbalizes I just want my baby with me. Scant vaginal bleeding per isabel pad. ISABEL HENRY RN 02/05/2018 6:12 * Plan of Care - Joseline Phillips - 02/04/2018 1720 EST Problem: Daily Care Plan Goals Goal: Care Plan Documentation Outcome: Completed Date Met: 02/04/18 02/04/18 6025 Care Plan Focus Area of Focus Other Goal This Shift Admit pt to [place] [id number] Data: Pt admitted to [facility] Neuro SDU with cerebral venous thrombosis. Action: Assessment completed. Pt oriented to room, floor and plan of care. Pt medicated for pain prior to transfer from MICU and states pain is tolerable. Response: Pt stable at this time. States pain has improved. Pt verbalizes understanding of plan of care. Of note: Pt inquired about on heparin drip. MD notified, pharmacist Ledy consulted. Per pharmacy- OK to breastfeed on heparin drip. documented in this encounter Plan of Treatment Pending Results Name Type Priority Associated Diagnoses Date /Time OUTSIDE IMAGES - CT NEURO Imaging 02/04/2018 8:39 EST Scheduled Referrals Name Type Priority Associated Diagnoses Order Schedule AMB CONS/FOLLOW UP HEMATOLOGY Outpatient Referral Routine Cerebral venous thrombosis during puerperium, Ordered: 02/05/2018 AMB CONS/FOLLOW UP NEUROLOGY Outpatient Referral Routine Cerebral venous thrombosis Ordered: 02/06/2018 AMB CONS/FOLLOW UP PRIMARY CARE PHYSICIAN Outpatient Referral Routine Cerebral venous thrombosis during puerperium, Ordered: 02/06/2018 documented as of this encounter Procedures Procedure Name Priority Date/Time Associated Diagnosis Comments ECG REPORT - SCANNED 02/09/2018 10:42 EST HEPARIN LEVEL - UNFRACTIONATED HEPARIN STAT 02/05/2018 18:10 EST HEPARIN LEVEL - UNFRACTIONATED HEPARIN STAT 02/05/2018 11:52 EST HEPARIN LEVEL - UNFRACTIONATED HEPARIN STAT 02/05/2018 3:42 EST COMPLETE BLOOD COUNT Routine 02/05/2018 3:42 EST HEPARIN LEVEL - UNFRACTIONATED HEPARIN STAT 02/04/2018 21:44 EST RAD US DOPPLER UPPER EXTREMITY VENOUS BILATERAL Routine 02/04/2018 18:18 EST RAD US DOPPLER LOWER EXTREMITY VENOUS BILATERAL Routine 02/04/2018 18:17 EST HEPARIN LEVEL - UNFRACTIONATED HEPARIN STAT 02/04/2018 15:38 EST MR ANGIO HEAD VENOGRAM W/WO CONTRAST STAT 02/04/2018 13:19 EST MR HEAD W/WO CONTRAST STAT 02/04/2018 13:[address] ANGIO HEAD AND NECK W CONTRAST STAT 02/04/2018 5:16 EST PTT STAT 02/04/2018 4:18 EST PROTIME STAT 02/04/2018 4:18 EST BUN STAT 02/04/2018 4:18 EST CREATININE STAT 02/04/2018 4:18 EST ELECTROLYTES STAT 02/04/2018 4:18 EST documented in this encounter Results * ECG REPORT - SCANNED (02/09/2018 10:42 EST) 02/09/2018 10:4 2 EST Scan 2 [employer]cutter Assistant PROCEDURE/MINOR MARISOL GICAL ORDERABLES * HEPARIN LEVEL - UNFRACTIONATED HEPARIN (02/05/2018 18:10 EST) Heparin Level-UFH 0.38 IU/mL 018 19:03 EST [facility] Comment: Unfractionated heparin therapeutic range = 0.3-0.7 IU/ml This test is not intended for monitoring direct Xa inhibitors, direct thrombin inhibitors, or fondaparinux. Exogenous ATIII is NOT supplied in this assay. For unexpected or persistently low levels, consider measuring patient's ATIII level. Blood specimen (specimen) BLOOD SPECIMEN / Unknown 02/05/2018 18:10 EST 02/05/2018 18:17 EST Rojas Malagon MD HEMATOLOGY & PF4 ORD ERABLES Performing Organization Address [facility] Co de Phone Number [facility] [address] [place] [address] * HEPARIN LEVEL - UNFRACTIONATED HEPARIN (02/05/2018 11:52 EST) Heparin Level-UFH 0.41 IU/mL 018 12:18 EST [facility] Comment: Unfractionated heparin therapeutic range = 0.3-0.7 IU/ml This test is not intended for monitoring direct Xa inhibitors, direct thrombin inhibitors, or fondaparinux. Exogenous ATIII is NOT supplied in this assay. For unexpected or persistently low levels, consider measuring patient's ATIII level. Blood specimen (specimen) BLOOD SPECIMEN / Unknown 02/05/2018 11:52 EST 02/05/2018 12:00 EST Rojas Malagon MD HEMATOLOGY & PF4 ORD ERABLES Performing Organization Address [facility] Co de Phone Number [facility] [address] [place] [address] * HEPARIN LEVEL - UNFRACTIONATED HEPARIN (02/05/2018 3:42 EST) Heparin Level-UFH 0.45 IU/mL 018 4:16 EST [facility] Comment: Unfractionated heparin therapeutic range = 0.3-0.7 IU/ml This test is not intended for monitoring direct Xa inhibitors, direct thrombin inhibitors, or fondaparinux. Exogenous ATIII is NOT supplied in this assay. For unexpected or persistently low levels, consider measuring patient's ATIII level. Blood specimen (specimen) BLOOD SPECIMEN / Unknown 02/05/2018 3:42 EST 02/05/2018 3:48 EST Rojas Malagon MD HEMATOLOGY & PF4 ORD ERABLES Performing Organization Address City/[facility]/ZIP Co de Phone Number [facility] [address] [place] [address] * COMPLETE BLOOD COUNT (02/05/2018 3:42 EST) WBC 8.77 4.0 - 12.4 K/cmm 02/05/2018 4:11 [facility] RBC 4.23 3.86 - 5.04 M/cmm 02/05/2018 4:11 [facility] Hemoglobin 12.6 11.6 - 15.2 gm/dl 02/05/2018 4:11 [facility] HCT 37.4 34.9 - 44.4 % 02/05/2018 4:11 [facility] MCV 88 81 - 98 fl 02/05/2018 4:11 [facility] MCH 29.8 26.7 - 33.3 pg 02/05/2018 4:11 [facility] MCHC 33.7 32.1 - 35.9 gm/dl 02/05/2018 4:11 [facility] RDW-CV 13.4 <14.7 % 02/05/2018 4:11 [facility] RDW-SD 43.4 <50.4 fl 02/05/2018 4:11 [facility] PLT 251 141 - 377 K/cmm 02/05/2018 4:11 [facility] MPV 10.1 9.5 - 12.7 fl 02/05/2018 4:11 [facility] Blood specimen (specimen) BLOOD SPECIMEN / Unknown 02/05/2018 3:42 EST 02/05/2018 3:48 EST Valarie Maradiaga MD HEMATOLOGY & PF4 ORD ERABLES Performing Organization Address City/[facility]/ZIP Co de Phone Number [facility] [address] [place] [address] * HEPARIN LEVEL - UNFRACTIONATED HEPARIN (02/04/2018 21:44 EST) Heparin Level-UFH 0.37 IU/mL 018 22:00 EST [facility] Comment: Unfractionated heparin therapeutic range = 0.3-0.7 IU/ml This test is not intended for monitoring direct Xa inhibitors, direct thrombin inhibitors, or fondaparinux. Exogenous ATIII is NOT supplied in this assay. For unexpected or persistently low levels, consider measuring patient's ATIII level. Blood specimen (specimen) BLOOD SPECIMEN / Unknown 02/04/2018 21:44 EST 02/04/2018 21:47 EST Rojas Malagon MD HEMATOLOGY & PF4 ORD ERABLES [facility] [address] [place] [address] * RAD US DOPPLER UPPER EXTREMITY VENOUS BILATERAL (02/04/2018 18:18 EST) Anatomical Region Laterality Modality Other 02/04/2018 18:1 8 EST 02/05/2018 8:55 EST Narrative 02/05/2018 8:55 EST RAD US DOPPLER UPPER EXTREMITY VENOUS BILATERAL ??02/04/2018 6:18 PM Signs And Symptoms/Comments: Stroke Comparison: No relevant prior studies. Technique: Grayscale, Doppler and duplex ultrasound of the upper extremities. Findings: There is no evidence of intraluminal thrombus in the internal jugular, brachiocephalic, subclavian, axillary, brachial, basilic or cephalic veins of the upper extremities. Impression: No evidence of deep venous thrombosis in the upper extremities. I have personally reviewed the images and the above interpretation and agree with the findings. Procedure Note Eric Pratt MD - 02/05/2018 RAD US DOPPLER UPPER EXTREMITY VENOUS BILATERAL 02/04/2018 6:18 PM Signs And Symptoms/Comments: Stroke Comparison: No relevant prior studies. Technique: Grayscale, Doppler and duplex ultrasound of the upper extremities. Findings: There is no evidence of intraluminal thrombus in the internal jugular, brachiocephalic, subclavian, axillary, brachial, basilic or cephalic veins of the upper extremities. Impression: No evidence of deep venous thrombosis in the upper extremities. I have personally reviewed the images and the above interpretation and agree with the findings. Rojas Malagon MD [facility] ORDERABLES * RAD US DOPPLER LOWER EXTREMITY VENOUS BILATERAL (02/04/2018 18:17 EST) Anatomical Region Laterality Modality Other 02/04/2018 18:1 7 EST 02/05/2018 8:55 EST Narrative 02/05/2018 8:55 EST RAD US DOPPLER LOWER EXTREMITY VENOUS BILATERAL ??02/04/2018 6:17 PM Signs And Symptoms/Comments: Stroke Comparison: [...] above interpretation and agree with the findings. Procedure Note Eric Pratt MD - 02/05/2018 RAD US DOPPLER LOWER EXTREMITY VENOUS BILATERAL [...] above interpretation and agree with the findings. Rojas Malagon MD [facility] * HEPARIN LEVEL - UNFRACTIONATED HEPARIN (02/04/2018 15:38 EST) Heparin Level-UFH 0.28 IU/mL 018 16:04 EST [facility] Comment: Unfractionated heparin therapeutic range = 0.3-0.7 IU/ml This test is not intended for monitoring direct Xa inhibitors, direct thrombin inhibitors, or fondaparinux. Exogenous ATIII is NOT supplied in this assay. For unexpected or persistently low levels, consider measuring patient's ATIII level. Sample retested, result confirmed Blood specimen (specimen) BLOOD SPECIMEN / Unknown 02/04/2018 15:38 EST 02/04/2018 15:44 EST Rojas Malagon MD HEMATOLOGY & PF4 ORD ERABLES [facility] Organization Address City/State/ZIP Co de Phone Number [facility] [address] [place] [id number] * MR ANGIO HEAD VENOGRAM W/WO CONTRAST (02/04/2018 13:19 EST) Anatomical Region Laterality Modality Other 02/04/2018 13:1 9 EST 02/04/2018 16:41 EST Narrative 02/04/2018 16:41 EST MR HEAD W/WO CONTRAST, MR ANGIO HEAD VENOGRAM W/WO CONTRAST ?? 02/04/2018 1:18 PM Signs And Symptoms/Comments: c/f cortical venous thrombosis Comparison: CT head without contrast 7 hours prior. Technique: MRI of the head with and without IV contrast. MRV of the head with IV contrast. Findings: MRI head: There is an area of susceptibility in a serpiginous pattern consistent with known thrombosed cortical vein in the left frontoparietal region. Otherwise the brain parenchyma demonstrates normal signal intensity. There is no acute hemorrhage or hydrocephalus. Mild diffuse dural thickening and enhancement likely related to low CSF pressure given history of post LP-type headaches. The paranasal sinuses and mastoid air cells are predominantly clear. Bone marrow signal is normal. On contrast administration there is no abnormal brain parenchymal or leptomeningeal enhancement. MRV head: The left frontoparietal cortical vein thrombosis is well seen on the MRV images. No evidence of dural venous sinus or deep cerebral vein thrombosis. Impression: 1. ??Redemonstration of a cortical vein thrombosis on the left. No evidence of dural venous sinus or deep cerebral vein thrombosis. 2. ??No evidence of ischemia or intracranial hemorrhage. 3. ??Mild diffuse dural thickening and enhancement likely related to low CSF pressure given history of post LP-type headaches. I have personally reviewed the images and the above interpretation and agree with the findings. Procedure Note Daniel Barillas MD - 02/04/2018 MR HEAD W/WO CONTRAST, MR ANGIO HEAD VENOGRAM W/WO CONTRAST 02/04/2018 1:18 PM Signs And Symptoms/Comments: c/f cortical venous thrombosis Comparison: CT head without contrast 7 hours prior. Technique: MRI of the head with and without IV contrast. MRV of the head with IV contrast. Findings: MRI head: There is an area of susceptibility in a serpiginous pattern consistent with known thrombosed cortical vein in the left frontoparietal region. Otherwise the brain parenchyma demonstrates normal signal intensity. There is no acute hemorrhage or hydrocephalus. Mild diffuse dural thickening and enhancement likely related to low CSF pressure given history of post LP-type headaches. The paranasal sinuses and mastoid air cells are predominantly clear. Bone marrow signal is normal. On contrast administration there is no abnormal brain parenchymal or leptomeningeal enhancement. MRV head: The left frontoparietal cortical vein thrombosis is well seen on the MRV images. No evidence of dural venous sinus or deep cerebral vein thrombosis. Impression: 1. Redemonstration of a cortical vein thrombosis on the left. No evidence of dural venous sinus or deep cerebral vein thrombosis. 2. No evidence of ischemia or intracranial hemorrhage. 3. Mild diffuse dural thickening and enhancement likely related to low CSF pressure given history of post LP-type headaches. I have personally reviewed the images and the above interpretation and agree with the findings. Debbi Alcantara MD [facility] ORDERABLES * MR HEAD W/WO CONTRAST (02/04/2018 13:18 EST) Anatomical Region Laterality Modality Other 02/04/2018 13:1 8 EST 02/04/2018 16:41 EST Narrative 02/04/2018 16:41 EST MR HEAD W/WO CONTRAST, MR ANGIO HEAD VENOGRAM W/WO CONTRAST ?? 02/04/2018 1:18 PM Signs And Symptoms/Comments: c/f cortical venous thrombosis Comparison: CT head without contrast 7 hours prior. Technique: MRI of the head with and without IV contrast. MRV of the head with IV contrast. Findings: MRI head: There is an area of susceptibility in a serpiginous pattern consistent with known thrombosed cortical vein in the left frontoparietal region. Otherwise the brain parenchyma demonstrates normal signal intensity. There is no acute hemorrhage or hydrocephalus. Mild diffuse dural thickening and enhancement likely related to low CSF pressure given history of post LP-type headaches. The paranasal sinuses and mastoid air cells are predominantly clear. Bone marrow signal is normal. On contrast administration there is no abnormal brain parenchymal or leptomeningeal enhancement. MRV head: The left frontoparietal cortical vein thrombosis is well seen on the MRV images. No evidence of dural venous sinus or deep cerebral vein thrombosis. Impression: 1. ??Redemonstration of a cortical vein thrombosis on the left. No evidence of dural venous sinus or deep cerebral vein thrombosis. 2. ??No evidence of ischemia or intracranial hemorrhage. 3. ??Mild diffuse dural thickening and enhancement likely related to low CSF pressure given history of post LP-type headaches. I have personally reviewed the images and the above interpretation and agree with the findings. Procedure Note Daniel Barillas MD - 02/04/2018 MR HEAD W/WO CONTRAST, MR ANGIO HEAD VENOGRAM W/WO CONTRAST 02/04/2018 1:18 PM Signs And Symptoms/Comments: c/f cortical venous thrombosis Comparison: CT head without contrast 7 hours prior. Technique: MRI of the head with and without IV contrast. MRV of the head with IV contrast. Findings: MRI head: There is an area of susceptibility in a serpiginous pattern consistent with known thrombosed cortical vein in the left frontoparietal region. Otherwise the brain parenchyma demonstrates normal signal intensity. There is no acute hemorrhage or hydrocephalus. Mild diffuse dural thickening and enhancement likely related to low CSF pressure given history of post LP-type headaches. The paranasal sinuses and mastoid air cells are predominantly clear. Bone marrow signal is normal. On contrast administration there is no abnormal brain parenchymal or leptomeningeal enhancement. MRV head: The left frontoparietal cortical vein thrombosis is well seen on the MRV images. No evidence of dural venous sinus or deep cerebral vein thrombosis. Impression: 1. Redemonstration of a cortical vein thrombosis on the left. No evidence of dural venous sinus or deep cerebral vein thrombosis. 2. No evidence of ischemia or intracranial hemorrhage. 3. Mild diffuse dural thickening and enhancement likely related to low CSF pressure given history of post LP-type headaches. I have personally reviewed the images and the above interpretation and agree with the findings. Debbi Alcantara MD [facility] * CT ANGIO HEAD AND NECK W CONTRAST (02/04/2018 5:16 EST) Anatomical Region Laterality Modality Other 02/04/2018 5:16 EST 02/04/2018 8:40 EST Narrative 02/04/2018 8:[address] ANGIO HEAD AND NECK W CONTRAST ??02/04/2018 5:16 AM SIGNS AND SYMPTOMS/COMMENTS: ?? Possible vascular anomaly seen on head CT TECHNIQUE: Noncontrast CT of the head. CTA of the head and neck after IV contrast. 3-D reconstructions of the CTA head and neck were performed and reviewed. COMPARISON: Outside head CT under accession number [id number] FINDINGS: Head CT: Near the vertex, on the left, there is a hyperdense vascular structure which likely reflect a thrombosed cortical vein (image 94, series 201). No subdural hematoma is present. No subarachnoid, epidural, or intraparenchymal hemorrhage. Ventricular caliber is within normal limits. No large territorial infarct. Unremarkable osseous structures and extracranial soft tissues. CTA Head: The previously noted serpiginous hyperdensity overlying the left frontoparietal cortex does not opacify, and confirms the diagnosis of cortical vein thrombosis. The aortic arch, major arch branches, common carotid arteries, internal carotid arteries, and vertebral arteries are patent with no evidence of stenosis, occlusion, or dissection. Major intracranial arteries are patent with no evidence of stenosis, occlusion, aneurysm, or vascular malformation. Additional findings: There is a calcified left upper lobe granuloma. ??In the right upper lobe, there is mucus plugging and mild bronchiectasis. IMPRESSION: 1. Extra-axial serpiginous hyperdensity in the left frontoparietal region with lack of contrast opacification on the CTA images represents a thrombosed cortical vein. 2. No intracranial hemorrhage or evidence of parenchymal edema. 3. No arterial abnormality in the head or neck. Dr. Buzz Reynaga reviewed these findings with CHRISTIANO NEWELL MD on 02/04/2018 5:40 AM. I have personally reviewed the images and the above interpretation and agree with the findings. Procedure Note Daniel Barillas MD - 02/04/2018 CT ANGIO HEAD AND NECK W CONTRAST 02/04/2018 5:16 AM SIGNS AND SYMPTOMS/COMMENTS: Possible vascular anomaly seen on head CT TECHNIQUE: Noncontrast CT of the head. CTA of the head and neck after IV contrast. 3-D reconstructions of the CTA head and neck were performed and reviewed. COMPARISON: Outside head CT under accession number [id number] FINDINGS: Head CT: Near the vertex, on the left, there is a hyperdense vascular structure which likely reflect a thrombosed cortical vein (image 94, series 201). No subdural hematoma is present. No subarachnoid, epidural, or intraparenchymal hemorrhage. Ventricular caliber is within normal limits. No large territorial infarct. Unremarkable osseous structures and extracranial soft tissues. CTA Head: The previously noted serpiginous hyperdensity overlying the left frontoparietal cortex does not opacify, and confirms the diagnosis of cortical vein thrombosis. The aortic arch, major arch branches, common carotid arteries, internal carotid arteries, and vertebral arteries are patent with no evidence of stenosis, occlusion, or dissection. Major intracranial arteries are patent with no evidence of stenosis, occlusion, aneurysm, or vascular malformation. Additional findings: There is a calcified left upper lobe granuloma. In the right upper lobe, there is mucus plugging and mild bronchiectasis. IMPRESSION: 1. Extra-axial serpiginous hyperdensity in the left frontoparietal region with lack of contrast opacification on the CTA images represents a thrombosed cortical vein. 2. No intracranial hemorrhage or evidence of parenchymal edema. 3. No arterial abnormality in the head or neck. Dr. Buzz Reynaga reviewed these findings with CHRISTIANO NEWELL MD on 02/04/2018 5:40 AM. I have personally reviewed the images and the above interpretation and agree with the findings. Christiano Newell MD IMG CT ORDERABLES * PROTIME (02/04/2018 4:18 EST) Pro Time 11.4 10.3 - 13.4 secs 02/04/2018 4:46 EST [facility] I.N.R. 1.0 0.9 - 1.1 Ratio 02/04/2018 4:46 EST [facility] Comment: Moderate Intensity Coumadin INR = 2.0-3.0 Adjustments in anticoagulant therapy dose should be based upon the INR and NOT the Pro Time. Blood specimen (specimen) BLOOD SPECIMEN / Unknown 02/04/2018 4:18 EST 02/04/2018 4:31 EST Christiano Newell MD HEMATOLOGY & PF4 ORD ERABLES Performing Organization Address [facility] Co de Phone Number [facility] [address] [place] [address] * PTT (02/04/2018 4:18 EST) PTT 26 26 - 37 secs 02/04/2018 4:49 EST [facility] Blood specimen (specimen) BLOOD SPECIMEN / Unknown 02/04/2018 4:18 EST 02/04/2018 4:31 EST Christiano Newell MD HEMATOLOGY & PF4 ORD ERABLES Performing Organization Address [facility] de Phone Number [facility] [address] [place] [address] * (ABNORMAL) CREATININE (02/04/2018 4:18 EST) Creatinine 0.49(L) 0.52 - 1.04 mg/dl 02/04/2018 4:49 EST [facility] GFR, Calculated 135 >60 ml/min/1.7 3m2 02/04/2018 4:49 EST [facility] Comment: eGFR calculated using CKD-EPI equation for non Americans. Multiply eGFR by 1.16 for Americans. Blood specimen (specimen) BLOOD SPECIMEN / Unknown 02/04/2018 4:18 EST 02/04/2018 4:31 EST Christiano Newell MD CHEMISTRY & BLOOD GA S ORDERABLES Performing Organization Address [facility] Co de Phone Number [facility] [address] [place] [address] * BUN (02/04/2018 4:18 EST) BUN 12 10 - 26 mg/dl 02/04/2018 4:49 EST [facility] Blood specimen (specimen) BLOOD SPECIMEN / Unknown 02/04/2018 4:18 EST 02/04/2018 4:31 EST Christiano Newell MD CHEMISTRY & BLOOD GA S ORDERABLES Performing Organization Address [facility] de Phone Number [facility] [address] [place] [address] * (ABNORMAL) ELECTROLYTES (02/04/2018 4:18 EST) Sodium 138 136 - 145 mEq/L 02/04/2018 4:49 EST [facility] Potassium 4.1 3.5 - 5.0 mEq/L 02/04/2018 4:49 EST [facility] Chloride 112(H) 96 - 110 mEq/L 02/04/2018 4:49 EST [facility] CO2 22 22 - 32 mEq/L 02/04/2018 4:49 EST [facility] Blood specimen (specimen) BLOOD SPECIMEN / Unknown 02/04/2018 4:18 EST 02/04/2018 4:31 EST Christiano Newell MD CHEMISTRY & BLOOD GA S ORDERABLES Performing Organization Address [facility] Co de Phone Number [facility] [address] [place] [address] documented in this encounter Visit Diagnoses Diagnosis Cerebral venous thrombosis- Primary Cerebral thrombosis without mention of cerebral infarction SDH (subdural hematoma) ([facility]) Subdural hemorrhage Cerebral venous thrombosis during puerperium, Cerebral venous thrombosis Cerebral thrombosis without mention of cerebral infarction documented in this encounter Administered Medications Inactive Administered Medications - up to 3 most recent administrations Medication Order MAR Action Action Date Dose Rate Site acetaminophen (TYLENOL) solution unit dose cup 650 mg 650 mg, per ng tube, EVERY 4 HOURS PRN, Starting on 02/04/18 at 0356, Until Mon02/06/18 at 1434, Pain, Routine, Release acetaminophen (TYLENOL) suppository 650 mg 650 mg, rectal, EVERY 4 HOURS PRN, Starting on 02/04/18 at 0356, Until Mon02/06/18 at 1434, Pain, Routine, Release acetaminophen (TYLENOL) tablet 650 mg 650 mg, oral, EVERY 4 HOURS PRN, Starting on Mon02/04/18 at 0356, Until Mon02/06/18 at 1434, Pain, Routine, Release Given 02/06/2018 11:54 EST 650 mg Given 02/06/2018 8:07 EST 650 mg Given 02/06/2018 3:54 EST 650 mg enoxaparin (LOVENOX) injection 80 mg 80 mg (rounded from 81.6 mg = 1 mg/kg ? 81.6 kg), subcutaneous, EVERY 12 HOURS, 14 doses, First dose on Mon02/05/18 at 2000, Last dose on Mon02/12/18 at 0900, Routine Given 02/05/2018 20:06 EST 80 mg enoxaparin (LOVENOX) injection 80 mg 80 mg (rounded from 81.6 mg = 1 mg/kg ? 81.6 kg), subcutaneous, EVERY 12 HOURS, 13 doses, First dose (after last modification) on Mon02/06/18 at 0830, Last dose on Mon02/12/18 at 0900, Routine Given 02/06/2018 8:07 EST 80 mg heparin 1,000 unit/mL injection 5,100 Units 5,100 Units (rounded from 5,128 Units = 80 Units/kg ? 64.1 kg Adjusted weight), intravenous, NOW X1, 1 dose, On Mon02/04/18 at 0845, STAT Given 02/04/2018 9:29 EST 5,100 Units heparin 25,000 Units in sodium chloride (NS) 0.9 % 250 mL infusion 20 Units/kg/hr ? 64.1 kg Adjusted weight (12.82 mL/hr, rounded to 12.8 mL/hr), intravenous, CONTINUOUS, Starting on Mon02/04/18 at 0900, Until Mon02/05/18 at 2000, STAT Rate Documented 02/05/2018 19:05 EST 20 Units/kg/hr 12.8 mL/hr Rate Documented 02/05/2018 13:59 EST 20 Units/kg/hr 12.8 m L/hr Rate Documented 02/05/2018 7:50 EST 20 Units/kg/hr 12.8 mL /hr levETIRAcetam (KEPPRA) tablet 500 mg 500 mg, oral, EVERY 12 HOURS, First dose on Mon02/04/18 at 0900, Until Discontinued, Routine, Release Given 02/04/2018 9:31 EST 500 mg documented in this encounter Discontinued Medications Medication Sig Discontinue Reason Start Date End Da te enoxaparin (LOVENOX) 80 mg/0.8 mL injection Inject 80 mg into the skin every 12 hours for 90 days. 02/06/2018 02/06/2018 documented as of this encounter Active and Recently Administered Medications Due to Daylight Saving Time, this section may contain times in both EDT and EST. Scheduled Medication Order 02/04/2018 02/05/2018 02/06/2018 enoxaparin (LOVENOX) injection 80 mg (CANCELED) 80 mg (rounded from 81.6 mg = 1 mg/kg ? 81.6 kg), subcutaneous, EVERY 12 HOURS, 14 doses, First dose on Mon02/05/18 at 2000, Last dose on Mon02/12/18 at 0900, Routine 2006 (Given - Provider: Maya Trevino RN) enoxaparin (LOVENOX) injection 80 mg 80 mg (rounded from 81.6 mg = 1 mg/kg ? 81.6 kg), subcutaneous, EVERY 12 HOURS, 13 doses, First dose (after last modification) on Mon02/06/18 at 0830, Last dose on Mon02/12/18 at 0900, Routine 0807 (Given - Provider: Maya Trevino RN) heparin 1,000 unit/mL injection 5,100 Units (COMPLETED) 5,100 Units (rounded from 5,128 Units = 80 Units/kg ? 64.1 kg Adjusted weight), intravenous, NOW X1, 1 dose, On [place] 02/04/18 at 0845, STAT 0929 (Given - Provider: Rachna Calabrese, MEREDITH) levETIRAcetam (KEPPRA) tablet 500 mg (CANCELED)(Linked Group 1) 500 mg, oral, EVERY 12 HOURS, First dose on 02/04/18 at 0900, Until Discontinued, Routine, Release 0931 (Given - Provider: Rachna Calabrese, MEREDITH) Continuous Medication Order 02/04/2018 02/05/2018 02/06/2018 heparin 25,000 Units in sodium chloride (NS) 0.9 % 250 mL infusion () 20 Units/kg/hr ? 64.1 kg Adjusted weight (12.82 mL/hr, rounded to 12.8 mL/hr), intravenous, CONTINUOUS, Starting on 02/04/18 at 0900, Until Mon02/05/18 at 2000, STAT 0928 (New Bag - Provider: Rachna Calabrese RN)1000 (Rate Documented - Provider: Rachna Calabrese RN)1100 (Rate Documented - Provider: Rachna Calabrese RN)1156 (Rate Documented - Provider: Rachna Calabrese RN)1349 (Rate Documented - Provider: Rachna Calabrese RN)1435 (Rate Documented - Provider: Joseline Phillips)1700 (Rate Change - Provider: Joseline Phillips)1932 (Rate Documented - Provider: Isabel Henry, MEREDITH)2102 (Rate Documented - Provider: Isabel Henry, MEREDITH)2307 (Rate Documented - Provider: Isabel Henry RN) 0019 (New Bag - Provider: Isabel Henry RN)0214 (Rate Documented - Provider: Isabel Henry RN)0409 (Rate Documented - Provider: Isabel Henry RN)0609 (Rate Documented - Provider: Isabel Henry, RN)0750 (Rate Documented - Provider: Dominique Centeno RN)1359 (Rate Documented - Provider: Dominique Centeno RN)1905 (Rate Documented - Provider: Maya Trevino, MEREDITH)2000 (Completed - Provider: Maya Trevino RN) PRN Medication Order 02/04/2018 02/05/2018 02/06/2018 acetaminophen (TYLENOL) solution unit dose cup 650 mg(Linked Group 2) 650 mg, per ng tube, EVERY 4 HOURS PRN, Starting on 02/04/18 at 0356, Until Tu02/06/18 at 1434, Pain, Routine, Release 0709 (See Alternative - Provider: Jen Mujica, MEREDITH)1138 (See Alternative - Provider: Rachna Calabrese RN)1845 (See Alternative - Provider: Joseline Phillips) 0521 (See Alternative - Provider: Isabel Henry RN)2111 (See Alternative - Provider: Maya Trevino RN) 0354 (See Alternative - Provider: Liz Stewart RN)0807 (See Alternative - Provider: Maya Trevino RN)1154 (See Alternative - Provider: Miladis Hobbs, MEREDITH) acetaminophen (TYLENOL) suppository 650 mg(Linked Group 2) 650 mg, rectal, EVERY 4 HOURS PRN, Starting on 02/04/18 at 0356, Until Tu02/06/18 at 1434, Pain, Routine, Release 0709 (See Alternative - Provider: Jen Mujica, RN)1138 (See Alternative - Provider: Rachna Calabrese, MEREDITH)1845 (See Alternative - Provider: Joseline Phillips) 0521 (See Alternative - Provider: Isabel Henry, MEREDITH)211 (See Alternative - Provider: Maya Trevino RN) 035 (See Alternative - Provider: Liz Stewart, MEREDITH)0807 (See Alternative - Provider: Maya Trevino RN)1154 (See Alternative - Provider: Miladis Hobbs, MEREDITH) acetaminophen (TYLENOL) tablet 650 mg(Linked Group 2) 650 mg, oral, EVERY 4 HOURS PRN, Starting on 02/04/18 at 0356, Until Tu02/06/18 at 1434, Pain, Routine, Release 0709 (Given - Provider: Jen Mujica RN)1138 (Given - Provider: Rachna Calabrese, MEREDITH)1845 (Given - Provider: Joseline Phillips) 0521 (Given - Provider: Isabel Henry, MEREDITH)2110 (Given - Provider: Maya Trevino RN) 0354 (Given - Provider: Liz Stewart, MEREDITH)0807 (Given - Provider: Maya Trevino RN)1154 (Given - Provider: Miladis Hobbs, MEREDITH) calcium carbonate (TUMS) 200 mg calcium (500 mg) per chewable tablet tablet,chewable 1 Tab 1 Tablet, oral, EVERY 4 HOURS PRN, Starting on 02/04/18 at 0358, Until Tu02/06/18 at 1434, Heartburn, Routine, Release docusate sodium (COLACE) capsule 100 mg 100 mg, oral, 2 TIMES DAILY PRN, Starting on 02/04/18 at 0358, Until Tu02/06/18 at 1434, Constipation, Routine, Release ondansetron (PF) (ZOFRAN) injection 4 mg 4 mg, intravenous, EVERY 4 HOURS PRN, Starting on Mon02/04/18 at 0358, Until Mon02/06/18 at 1434, Nausea, Routine, Release Linked Groups Order Group 1: levETIRAcetam (KEPPRA) tablet 500 mg (CANCELED)Jump to med 500 mg, oral, EVERY 12 HOURS, First dose on Mon02/04/18 at 0900, Until Discontinued, Routine, Release Or levETIRAcetam (KEPPRA) 500 mg in sodium chloride (NS) 0.9 % 100 mL IVPB (CANCELED) 500 mg, intravenous, Administer over 15 Minutes, EVERY 12 HOURS, First dose on Mon02/04/18 at 0900, Until Discontinued, Routine, Release Group 2: acetaminophen (TYLENOL) tablet 650 mgJump to med 650 mg, oral, EVERY 4 HOURS PRN, Starting on Mon02/04/18 at 0356, Until Mon02/06/18 at 1434, Pain, Routine, Release Or acetaminophen (TYLENOL) solution unit dose cup 650 mgJump to med 650 mg, per ng tube, EVERY 4 HOURS PRN, Starting on Mon02/04/18 at 0356, Until Mon02/06/18 at 1434, Pain, Routine, Release Or acetaminophen (TYLENOL) suppository 650 mgJump to med 650 mg, rectal, EVERY 4 HOURS PRN, Starting on Mon02/04/18 at 0356, Until Mon02/06/18 at 1434, Pain, Routine, Release documented in this encounter Orders Medications Ordered That Omer ht Not Have Been Administered Count Last Ordered Date First Ordered Date acetaminophen (TYLENOL) solu tion unit dose cup 650 mg 1 02/04/2018 acetaminophen (TYLENOL) suppository 650 mg 1 02/04/2018 calcium carbonate (TUMS) 200 mg calcium (500 mg) per chewable tablet tablet,chewable 1 Tab 1 02/04/2018 docusate sodium (COLACE) capsule 100 mg 1 04/06/2017 heparin 1,000 unit/mL inject ion 2,600 Units 1 02/04/2018 heparin 1,000 unit/mL inject ion 5,100 Units 1 02/04/2018 heparin in 04/04 NS 25,000 uni t/250 mL infusion 1 02/04/2018 hydrALAzine (APRESOLINE) injection 10 mg 1 02/04/2018 levETIRAcetam (KEPPRA) 500 m g in sodium chloride (NS) 0.9 % 100 mL IVPB 1 02/04/2018 ondansetron (PF) (ZOFRAN) injection 4 mg 1 02/04/2018 Nursing Count Last Ordered Date First Orde red Date CONTRAINDICATION TO ANTICOAG ULATION THERAPY 1 02/04/2018 HEIGHT AND WEIGHT 1 02/04/2018 IV Count Last Ordered Date First Orde red Date IV REQUEST 1 02/05/2018 Admission Count Last Ordered Date First Orde red Date ED BED REQUEST 1 02/04/2018 STATUS: INPATIENT ACUTE ADMISSION 1 018 Transfer Count Last Ordered Date First Orde red Date NOTIFY PPS OF DISCHARGE COMPLETE 1 02/07/20 18 TRANSFER PATIENT 2 02/05/2018 02/04/2018 PPS NOTIFICATION OF PATIENT ARRIVAL ON UNIT 2 02/04/2018 UR PATIENT STATUS CHANGE 1 02/04/2018 Discharge Count Last Ordered Date First Orde red Date DISCHARGE PATIENT 1 02/06/2018 documented in this encounter Care Teams Sales Consultant Insurance Relationship Specialty Start Date End Date Tj Carrillo MD PCP - General 02/04/18 02/05/18 Shelby Li, HIGH SCHOOL PRINCIPAL [address] [place] [id number] PCP - General 02/06/18 documented as of this encounter
--- OUTSIDE RECORDS SUMMARY | 2023-10-25 10:47 | XMS_ITS | Encounter Summary ---
Author Organization [facility] Address [address] [place] [address] Care Team Providers Care Air Twister Winder Name Role Phone Shelby Li SILVIA Primary Care Provider + Reason for Visit * Reason Onset Date Comments Appointment Related 02/06/2018 Encounter Details Date Type Department Care Team (Late st Contact Info) Description 02/06/2018 Telephone [facility] Hematology & Oncology - [address] [address] Theodore Casas MD [address] [place] [address] [address] [place] [address] Appointment Related Social History Tobacco [...] * Telephone Encounter - Erica Gayle - 02/06/2018 1107 EST 02/06 @ 10:55 scheduled pt with TP on 03/12 @ 11:00. She agreed to plan Letter going out. documented in this encounter Plan of Treatment Not on file documented as of this encounter Visit Diagnoses Not on filedocumented in this encounter Care Teams Air Twister Winder Relationship Specialty Start Date End Date Shelby Li APRN [address] [place] [address] PCP - General 02/06/18 documented as of this encounter
--- OUTSIDE RECORDS SUMMARY | 2023-10-25 10:47 | XMS_ITS | Encounter Summary ---
Author Organization [facility] Address [address] [place] [address] Care Team Providers Care Box Liner Name Role Phone Unknown, Provider Primary Care Provider [phone] Tj Carrillo MD Primary Care Provider Unav ailable Shelby Li APRN Primary Care Provider + Encounter Details Date Type Department Care Team (Late st Contact Info) Description 01/26/2018 Historical Results Only [facility] - Main [place] [address] [place] [id number] [place] [address] [place] [address] [address] [place] [address] Social History Tobacco Use Types Packs/Day Years Used Date Smoking Tobacco: Never Assessed Sex and Gender Information Value Date Recorded Sex Assigned at Not on file Gender Identity Female 02/16/2021 11:19 EST Sexual Orientation Not on file documented as of this encounter Plan of Treatment Not on file documented as of this encounter Procedures Procedure Name Priority Date/Time Associated Diagnosis Comments BLOOD BANK HOLD Routine 01/26/2018 8:55 EDT COMPLETE BLOOD COUNT WITH DIFFERENTIAL (AUTO) Routine 01/26/2018 6:15 EDT documented in this encounter Results * BLOOD BANK HOLD (CLOT) (01/26/2018 8:55 EDT) [place] [facility] [place] Note [facility] Comment: CLOT TO HOLD WILL IN 48 HOURS FROM DATE ?AND TIME OF COLLECTION ?BLOOD BANK HISTORY HAS BEEN CHECKED 01/26/2018 8:55 EDT 01/26/2018 9:08 EDT Myra Wyatt MD BLOOD BANK TESTS [facility] * (ABNORMAL) COMPLETE BLOOD COUNT WITH DIFFERENTIAL (AUTO) (01/26/2018 6:15 EDT) ABSOLUTE NEUTROPHIL COUN - [facility] 6.94 1.7 - 7.0 10e3/ul 01/26/2018 7:14 [facility] BASO # - [facility] 0.02 0.0 - 0.3 10e3/uL 01/26/2018 7:14 [facility] BASO % - [facility] 0 0 - 2 % 01/26/2018 7:14 [facility] EOS # - [facility] 0.11 0.05 - 0.5 10e3/uL 01/26/2018 7:14 [facility] EOS % - [facility] 1 0 - 5 % 01/26/2018 7:14 [facility] GRAN % - [facility] 65 40 - 80 % 01/26/2018 7:14 [facility] HEMATOCRIT - [facility] 34.8 34.0 - 47.0 % 01/26/2018 7:14 [facility] HEMOGLOBIN - [facility] 11.3 11.2 - 15.7 g/dl 01/26/2018 7:14 [facility] IG# - [facility] 0.09(H) 0 - 0.07 10e3/uL 01/26/2018 7:14 [facility] IG% - [facility] 0.8 0 - 0.9 % 01/26/2018 7:14 [facility] LYMPH # - [facility] 2.52 0.9 - 2.9 10e3/uL 01/26/2018 7:14 [facility] LYMPH% - [facility] 24 20 - 40 % 01/26/2018 7:14 [facility] MEAN CORPUSCULAR HGB - [facility] 29.3 26 - 34 pg 01/26/2018 7:14 [facility] MEAN CORPUSCULAR HGB CONC - [facility] 32.5 31 - 36 g/dL 01/26/2018 7:14 [facility] MEAN CELL VOLUME - [facility] 90.2 77 - 100 fl 01/26/2018 7:14 [facility] MONO # - [facility] 1.06(H) 0.3 - 0.9 10e3/uL 01/26/2018 7:14 [facility] MONO% - [facility] 10 0 - 12 % 01/26/2018 7:14 [facility] PLATELET COUNT 174 150 - 400 10e3/ul 01/26/2018 7:14 [facility] RED BLOOD COUNT - [facility] 3.86 3.8 - 5.2 10e6/ul 01/26/2018 7:14 [facility] RED CELL DISTRI WIDTH - [facility] 13.2 11.8 - 15.6 % 01/26/2018 7:14 [facility] WHITE BLOOD COUNT - [facility] 10.7(H) 3.5 - 10.5 10e3/ul 01/26/2018 7:14 [facility] 01/26/2018 6:15 EDT 01/26/2018 6:45 EDT Myra Wyatt MD HEMATOLOGY & PF4 ORD ERABLES [facility] Organization Address City/State/ZIP Co de Phone Number [facility] documented in this encounter Visit Diagnoses Not on filedocumented in this encounter Care Teams Box Liner Relationship Specialty Start Date End Date Unknown, Provider, PCP - General 09/10/13 02/03/18 Tj Carrillo MD PCP - General 02/04/18 02/05/18 Shelby Li, GAMING TABLE OPERATOR [address] [place] [address] PCP - General 02/06/18 documented as of this encounter
--- OUTSIDE RECORDS SUMMARY | 2023-10-25 10:47 | XMS_ITS | Encounter Summary ---
Author Organization [facility] Address [address] [place] [address] Care Team Providers Care Bridge Leverman Name Role Phone Unknown, Provider Primary Care Provider [phone] Encounter Details Date Type Department Care Team (Latest Contact Info) Description 09/13/2017 9:57 EDT - 09/13/2017 23:59 EDT Hospital Encounter [address] [address] Unknown, Provider, Discharge Disposition: Home or Self Care Social History Tobacco Use Types Packs/Day Years Used Date Smoking Tobacco: Never Assessed Sex and Gender Information Value Date Recorded Sex Assigned at Not on file Gender Identity Female 02/16/2021 11:19 EST Sexual Orientation Not on file documented as of this encounter Discharge Disposition Disposition Code Departure Means Destination Home or Self Assisted documented in this encounter Plan of Treatment Not on file documented as of this encounter Visit Diagnoses Not on filedocumented in this encounter Care Teams Bridge Leverman Relationship Specialty Start Date End Date Unknown, Provider, PCP - General 09/10/13 02/03/18 documented as of this encounter
--- OUTSIDE RECORDS SUMMARY | 2023-10-25 10:47 | XMS_ITS | Encounter Summary ---
Author Organization [facility] Address [address] [place] [address] Care Team Providers Care Dumper Name Role Phone Shelby Li SILVIA Primary Care Provider + Reason for Visit * Reason Onset Date Comments Results 03/01/2018 Encounter Details Date Type Department Care Team (Late st Contact Info) Description 03/01/2018 Telephone [facility] Adult Neurology - [address] [address] Julia Montejo, RAMON [address] [place] [address] [address] [place] [address] Results Social History Tobacco Use Types Packs/Day Years [...] encounter Miscellaneous Notes * Telephone Encounter - Codi Sullivan RN - 03/02/2018 1017 EST Reason for call; EEG Results Spoke with Bettina and relayed results; normal EEG. She confirmed next appt 05/21/18 * Telephone Encounter - Isaac Sweeney - 03/02/2018 0947 EST Bettina called to inquire about her EEG results. She requested a call back from the nurse. * Telephone Encounter - Ramiro Reno - 03/01/2018 1102 EST Bettina called and said she had an EEG done on 02/26 and would like to get the results. She was told someone would call her in a couple of days and if not to call neurology. Has DFU scheduled with Julia Montejo on 05/21/18 Please call to discuss. documented in this encounter Plan of Treatment Not on file documented as of this encounter Visit Diagnoses Not on filedocumented in this encounter Care Teams Dumper Relationship Specialty Start Date End Date Shelby Li APRN [address] [place] [id number] PCP - General 02/06/18 documented as of this encounter
--- OUTSIDE RECORDS SUMMARY | 2023-10-25 10:48 | XMS_ITS ---
Author Organization Unknown Address [address] [place] [phone] Phone Care Team Providers Care Unitizer Name Role Phone ALBERTINA LAUREN Attending Unavailable SHIRA Rodas Primary Unavailable Social History Type Status Start Date End Date Code Code Syst em Smoking History Never smoker (Never Smoked) 399526767 SNOMED CT Sex Female Medications Medication Start [...] Code System No Known Allergies Moderate Active 282876285 SN OMED-CT Plan of Treatment Symptoms 12/16/2020 Symptoms 06/15/2020 Exposure 02/20/2020 SYMPTOMS 04/16/2021 SYMPTOMS 02/10/2021 SYMPTOMS 01/25/2021 Encounters Encounter Diagnosis Start Date Code Code Sys tem Chronic migraine without aur a, intractable, without status migrainosus 05/14/2021 SNOMED-CT Personal Care Team Section Performer Name Performer Role Active Date Inactive Da te
--- OUTSIDE RECORDS SUMMARY | 2023-10-25 10:48 | XMS_ITS ---
Author Organization Unknown Address [address] [place] [phone] Phone Care Team Providers Care Supervisor Of Instruction Name Role Phone ALBERTINA LAUREN Attending Unavailable SHIRA Rodas Primary Unavailable Social History Type Status Start Date End Date Code Code Syst em Smoking History Never smoker (Never Smoked) 134739985 SNOMED CT Sex Female Medications Medication Start [...] Code System No Known Allergies Moderate Active 283892870 SN OMED-CT Plan of Treatment Symptoms 12/16/2020 Symptoms 06/15/2020 Exposure 02/20/2020 SYMPTOMS 04/16/2021 SYMPTOMS 02/10/2021 SYMPTOMS 01/25/2021 Encounters Encounter Diagnosis Start Date Code Code Sys tem Canceled operative procedure 12/17/2021 [id number] SNOMED-CT Personal Care Team Section Performer Name Performer Role Active Date Inactive Da te
--- OUTSIDE RECORDS SUMMARY | 2023-10-25 10:48 | XMS_ITS ---
Author Organization Unknown Address [address] [place] [phone] Phone Care Team Providers Care Human Resource Analyst Name Role Phone RYAN Shaw Attending Unavailable SHIRA Rodas Primary Unavailable Results [facility]* - Aylin ect Date/Time: 04/16/2021 11:29 [facility] ID: [id number] [address] [place] [address], [id number] LOINC: 88012-9 Test Value Unit Reference Range Code Code System Flag Tier- SYMPTOMS SARS COV2 RNA: NEGATIVE REFERENCE RANGE: NEGAT 38893-4 L OINC Social History Type Status Start Date End Date Code Code Syst em Smoking History Never smoker (Never Smoked) 538893578 SNOMED CT Sex Female Medications Medication Start [...] Code System No Known Allergies Moderate Active 390589736 SN OMED-CT Plan of Treatment Symptoms 12/16/2020 Symptoms 06/15/2020 Exposure 02/20/2020 SYMPTOMS 04/16/2021 SYMPTOMS 02/10/2021 SYMPTOMS 01/25/2021 Encounters Encounter Diagnosis Start Date Code Code Sys tem Exposure to SARS-CoV-2 04/16/2021 582435137 SNOME D-CT Personal Care Team Section Performer Name Performer Role Active Date Inactive Brenden schneider
--- OUTSIDE RECORDS SUMMARY | 2023-10-25 10:48 | XMS_ITS ---
Author Organization Unknown Address [address] [place] [address] [phone] Phone Care Team Providers Care Safemaker Name Role Phone ALBERTINA LAUREN Attending Unavailable SHIRA Rodas Primary Unavailable Social History Type Status Start Date End Date Code Code Syst em Smoking History Never smoker (Never Smoked) 002673024 SNOMED CT Sex Female Medications Medication Start [...] Code System No Known Allergies Moderate Active 457135867 SN OMED-CT Plan of Treatment Symptoms 12/16/2020 Symptoms 06/15/2020 Exposure 02/20/2020 SYMPTOMS 04/16/2021 SYMPTOMS 02/10/2021 SYMPTOMS 01/25/2021 Encounters Encounter Diagnosis Start Date Code Code Sys tem Canceled operative procedure 12/17/2021 08971568 SNOMED-CT Personal Care Team Section Performer Name Performer Role Active Date Inactive Da te
[2023-10-25 14:51] LABS: Abs Immature Grans 0.02 10^3/uL (0.0-0.06); Absolute Basophil Count 0.05 10^3/uL (0.0-0.2); Absolute Eosinophil Count 0.13 10^3/uL (0.0-0.7); Absolute Lymphocyte Count 2.75 10^3/uL (1.2-3.4); Absolute Neutrophil Count 4.58 10^3/uL (1.2-6.7); Basophils % 0.6 %; Eosinophils % 1.6 %; HCT 42.3 % (36.0-46.0); HGB 14.1 g/dL (11.2-15.7); Immature Grans % 0.2 %; Lymphocytes % 33.8 %; MCHC 33.3 % (32.0-36.0); MCV 93 fL (80-95); MPV 10.2 fL (8.0-11.0); Monocytes % 7.4 %; Neutrophils % 56.4 %; Platelet Count 301 10^3/uL (130-400); RBC 4.55 10^6/uL (3.93-5.22); RDW 12.5 % (11.7-14.6); RDW-SD 42.9 fL; WBC 8.13 10^3/uL (4.4-10.8)
[2023-10-25 15:22] LABS: ALT 24 U/L (14-59); AST 15 U/L (15-37); Albumin 4.1 g/dL (3.4-5.0); Alkaline Phosphatase 70 U/L (46-116); Anion Gap 10.1 mmol/L (3-11); BUN 15 mg/dL (7-18); Bilirubin, Total 0.47 mg/dL (0.2-1.0); CO2 26.9 mmol/L (21.0-32.0); CREATININE 0.9 mg/dL (0.55-1.02); Calcium 8.7 mg/dL (8.5-10.1); Chloride 103 mmol/L (98-107); Estimated GFR 87.65 (mL/min/1.73m2); Glucose 91 mg/dL (74-106); Lipase 51 U/L (16-77); Potassium 4.4 mmol/L (3.5-5.1); Sodium 140 mmol/L (136-145); Total Protein 7.4 g/dL (6.4-8.2)
== END 2023-10-25 10:44 | disposition home or self-care (01) ==
LOC: NCHCN 10:43
PROVIDERS: PCP Nurse Practitioner Family; Visit Provider Physician Assistant
DX: R10.33 Periumbilical pain (principal)
CPT/HCPCS: 80053; 83690; 85025

== ENCOUNTER 2024-12-06 18:33 | Outpatient (REF) | payer BC, SELFPAY ==
[2024-12-06 21:28] LABS: TSH (W/Ref FT4) 2.97 uIU/mL (0.36-3.74); Vitamin D 25 Total 31 ng/mL (30-100)
== END 2024-12-06 18:34 | disposition home or self-care (01) ==
LOC: NCHCN 18:33
PROVIDERS: Visit Provider Family Medicine
DX: F32.1 Major depressive disorder, single episode, moderate (principal)
CPT/HCPCS: 82306; 84443

== ENCOUNTER 2025-02-20 12:07 | Outpatient (REF) | payer BC, SELFPAY ==
[2025-02-20 16:00] LABS: Hemoglobin A1C 5.3 % (<5.7)
[2025-02-20 16:01] LABS: ALT 17 U/L (10-49); AST 20 U/L (<34); Albumin 4.3 g/dL (3.4-5.0); Alkaline Phosphatase 64 U/L (46-116); Anion Gap 6.5 mmol/L (3-11); BUN 17 mg/dL (9-23); Bilirubin, Total 0.40 mg/dL (0.2-1.2); CO2 26.5 mmol/L (20.0-31.0); Calcium 8.7 mg/dL (8.3-10.6); Chloride 107 mmol/L (98-107); Glucose 85 mg/dL (74-106); Potassium 3.8 mmol/L (3.5-5.1); Sodium 140 mmol/L (136-145); Total Protein 7.0 g/dL (5.7-8.2)
== END 2025-02-20 12:08 | disposition home or self-care (01) ==
LOC: NCHCN 12:07
PROVIDERS: Visit Provider Family Medicine
DX: E66.811 Obesity, class 1 (principal); Z13.1 Encounter for screening for diabetes mellitus
CPT/HCPCS: 80053; 83036